=== PATIENT | female | born 1940 | race Caucasian/White ===

== ENCOUNTER 2017-11-26 15:43 | Emergency (ER) | payer OTHER ==
--- NOTE | 2017-11-26 16:56 | RAD REPORT ---
EXAM DESCRIPTION: CT - Head Brain Wo Cont - 11/26/2017 4:46 pm CLINICAL HISTORY: Pain;Trauma COMPARISON: Head Brain Wo Cont dated 11/02/2016; HEAD BRAIN W O CONTRAST dated 07/05/2014 TECHNIQUE: All CT scans are performed using dose optimization technique as appropriate and may inclu de automated exposure control or mA/KV adjustment according to patient size. FINDINGS: No intracranial hemorrhage, hydrocephalus or extra-axial fluid collection.No areas of brai n edema or evidence of midline shift. The paranasal sinuses and mastoids are clear. The calvarium is intact. IMPRESSION: No acute intracranial abnormality.
--- NOTE | 2017-11-26 17:38 | EDPHYS ---
Physician Documentation [facility] Name: Radhika Paz Age: 77 yrs Sex: Female : 1940 Arrival Date: 11/26/2017 Time: 15:46 Bed 6 Private MD: Ortiz Woodard C ED Physician David Lopez HPI: 11/26 16:16 This 77 yrs old Female presents to ER via Ambulatory with complaints of Fall kb Injury. 16:16 Details of fall: The patient fell from an upright position, while standing. Onset: The kb symptoms/episode began/occurred this morning. Associated injuries: The patient sustained injury to the head, pain, anterior aspect of right shoulder, painful injury. Severity of symptoms: At their worst the symptoms were mild, moderate, in the emergency department the symptoms are unchanged. The patient has not experienced similar symptoms in the past. The patient has not recently seen a physician. Pt states she was trying to get into her daughters car and her foot got caught when she was lifting it into the car making her fall. States she hit her head on the concrete. Denies LOC. States her head is a little sore and she just wanted to make sure her brain was ok. Also reports right shoulder pain that has been intermittent and wants to get that checked as well. . Historical: - Allergies: 15:58 No Known Allergies; sv - Home Meds: 15:58 Aspirin Oral [Active]; sv - PSHx: 15:58 Hysterectomy; back surgery; Tonsillectomy; pacemaker; sv - Immunization history:: Adult Immunizations up to date. - Social history:: Smoking status: Patient/guardian denies using tobacco. - Ebola Screening: : No symptoms or risks identified at this time. ROS: 16:13 Constitutional: Negative for fever, chills, and weight loss, Cardiovascular: Negative kb for chest pain, palpitations, and edema, Respiratory: Negative for shortness of breath, cough, wheezing, and pleuritic chest pain, Abdomen/GI: Negative for abdominal pain, nausea, vomiting, diarrhea, and constipation, Back: Negative for injury and pain, : Negative for injury, bleeding, discharge, and swelling, Skin: Negative for injury, rash, and discoloration, Neuro: Negative for headache, weakness, numbness, tingling, and seizure. 16:13 MS/extremity: Positive for pain, of the anterior aspect of right shoulder. Exam: 16:13 Constitutional: This is a well developed, well nourished patient who is awake, alert, kb and in no acute distress. Head/Face: Normocephalic, atraumatic. ENT: Nares patent. No nasal discharge, no septal abnormalities noted. Tympanic membranes are normal and external auditory canals are clear. Oropharynx with no redness, swelling, or masses, exudates, or evidence of obstruction, uvula midline. Mucous membranes moist. Neck: Trachea midline, no thyromegaly or masses palpated, and no cervical lymphadenopathy. Supple, full range of motion without nuchal rigidity, or vertebral point tenderness. No Meningismus. Chest/axilla: Normal chest wall appearance and motion. Nontender with no deformity. No lesions are appreciated. Cardiovascular: Regular rate and rhythm with a normal S1 and S2. No gallops, murmurs, or rubs. Normal PMI, no JVD. No pulse deficits. Respiratory: Lungs have equal breath sounds bilaterally, clear to auscultation and percussion. No rales, rhonchi or wheezes noted. No increased work of breathing, no retractions or nasal flaring. Abdomen/GI: Soft, non-tender, with normal bowel sounds. No distension or tympany. No guarding or rebound. No evidence of tenderness throughout. Skin: Warm, dry with normal turgor. Normal color with no rashes, no lesions, and no evidence of cellulitis. MS/ Extremity: Pulses equal, no cyanosis. Neurovascular intact. Full, normal range of motion. Neuro: Awake and alert, GCS 15, oriented to person, place, time, and situation. Cranial nerves II-XII grossly intact. Motor strength 5/5 in all extremities. Sensory grossly intact. Cerebellar exam normal. Normal gait. Vital Signs: 15:58 BP 140 / 50; Pulse 62; Resp 18; Temp 96.7; Pulse Ox 96% ; Weight 81.65 kg; Height 5 ft. sv 8 in. (172.72 cm); Pain 2/10; 15:58 Body Mass Index 27.37 (81.65 kg, 172.72 cm) sv [place] Coma Score: 16:30 Eye Response: spontaneous(4). Verbal Response: oriented(5). Motor Response: obeys ss commands(6). Total: 15. Trauma Score (Adult): 16:30 Eye Response: spontaneous(1); Verbal Response: oriented(1); Motor Response: obeys ss commands(2); Systolic BP: > 89 mm Hg(4); Respiratory Rate: 10 to 29 per min(4); [place] Score: 15; Trauma Score: 12 MDM: 16:03 Patient medically screened. kb 16:13 Data reviewed: vital signs, nurses notes. Data interpreted: Pulse oximetry: on room air kb is 96 %. Interpretation: normal. 17:37 Counseling: I had a detailed discussion with the patient and/or guardian regarding: the kb historical points, exam findings, and any diagnostic results supporting the discharge/admit diagnosis, radiology results, the need for outpatient follow up, a family practitioner, to return to the emergency department if symptoms worsen or persist or if there are any questions or concerns that arise at home. 11/26 16:07 Order name: Shoulder Right (2 View) XRAY kb 11/26 16:07 Order name: CT Head Brain wo Cont; Complete Time: 17:03 kb Administered Medications: No medications were administered Disposition: 11/27 08:27 Co-signature as Attending Physician, David Lopez MD I agree with the assessment and wa plan of care. Disposition: 11/26/17 17:38 Discharged to Home. Impression: Fall on same level from slipping, tripping and stumbling, Pain in right shoulder, Superficial injury of head. - Condition is Stable. - Discharge Instructions: Shoulder Pain, [id number], Head Injury, Adult, [id number]. - Medication Reconciliation Form, Thank You Letter, Antibiotic Education, Prescription Opioid Use form. - Follow up: Emergency Department; When: As needed; Reason: Worsening of condition. Follow up: Private Physician; When: 2 - 3 days; Reason: Recheck today's complaints, Continuance of care, Re-evaluation by your physician. Signatures: Dispatcher [employer] Carey Schaefer FNP-C FNP-Ckb Verde, Stephanie, RN RN sv Appiah, William, MD MD wa Corrections: (The following items were deleted from the chart) 11/26 17:59 17:38 11/26/2017 17:38 Discharged to Home. Impression: Fall on same level from sv slipping, tripping and stumbling; Pain in right shoulder; Superficial injury of head. Condition is Stable. Forms are Medication Reconciliation Form, Thank You Letter, Antibiotic Education, Prescription Opioid Use. Follow up: Emergency Department; When: As needed; Reason: Worsening of condition. Follow up: Private Physician; When: 2 - 3 days; Reason: Recheck today's complaints, Continuance of care, Re-evaluation by your physician. kb
--- NOTE | 2017-11-26 17:38 | ER ---
Nurse's Notes [facility] Name: Radhika Paz Age: 77 yrs Sex: Female : 1940 Arrival Date: 11/26/2017 Time: 15:46 Bed 6 Private MD: Ortiz Woodard C Diagnosis: Fall on same level from slipping, tripping and stumbling;Pain in right shoulder;Superficial injury of head Presentation: 11/26 15:55 Presenting complaint: Patient states: fall today trying to get in a car and got feet sv stuck. Pt reports hitting the back of her head, denies LOC. Care prior to arrival: None. 15:55 Acuity: AMADOU 3 sv 15:55 Method Of Arrival: Ambulatory sv 16:30 Transition of care: patient was not received from another setting of care. Onset of ss symptoms was November 26, 2017. Risk Assessment: Do you want to hurt yourself or someone else? Patient reports no desire to harm self or others. Initial Sepsis Screen: Does the patient meet any 2 criteria? No. Patient's initial sepsis screen is negative. Does the patient have a suspected source of infection? No. Patient's initial sepsis screen is negative. Historical: - Allergies: 15:58 No Known Allergies; sv - Home Meds: 15:58 Aspirin Oral [Active]; sv - PSHx: 15:58 Hysterectomy; back surgery; Tonsillectomy; pacemaker; sv - Immunization history:: Adult Immunizations up to date. - Social history:: Smoking status: Patient/guardian denies using tobacco. - Ebola Screening: : No symptoms or risks identified at this time. Screenin:30 Abuse screen: Denies threats or abuse. Denies injuries from another. Nutritional ss screening: No deficits noted. Tuberculosis screening: Never had TB. Fall Risk None identified. Assessment: 16:30 General: Appears in no apparent distress. comfortable, Behavior is calm, cooperative, ss Denies fever, feeling ill, fatigue, chills. Pain: Complains of pain in right occipital area and anterior aspect of right shoulder Pain does not radiate. Quality of pain is described as Patient reports that pain to R shoulder began 3 months ago and pain to back of head is currently 0/10. Pt reports hematoma was present earlier when injury first occurred, but no swelling or injury noted to affected area. Neuro: Level of Consciousness is awake, alert, obeys commands, Oriented to person, place, time, situation. Cardiovascular: Capillary refill < 3 seconds is brisk in bilateral fingers Pulses are palpable in right radial artery, right posterior tibial artery, left radial artery and left posterior tibial artery. Respiratory: Airway is patent Respiratory effort is even, unlabored, Respiratory pattern is regular, symmetrical. GI: Patient currently denies abdominal pain, diarrhea, nausea, vomiting. : No signs and/or symptoms were reported regarding the genitourinary system. EENT: Nares are clear Throat is clear. Derm: Skin is intact, is healthy with good turgor, Skin is dry, Skin temperature is warm. Musculoskeletal: Circulation, motion, and sensation intact. Range of motion: intact in all extremities, Swelling absent. Vital Signs: 15:58 BP 140 / 50; Pulse 62; Resp 18; Temp 96.7; Pulse Ox 96% ; Weight 81.65 kg; Height 5 ft. sv 8 in. (172.72 cm); Pain 2/10; 15:58 Body Mass Index 27.37 (81.65 kg, 172.72 cm) sv [place] Coma Score: 16:30 Eye Response: spontaneous(4). Verbal Response: oriented(5). Motor Response: obeys ss commands(6). Total: 15. Trauma Score (Adult): 16:30 Eye Response: spontaneous(1); Verbal Response: oriented(1); Motor Response: obeys ss commands(2); Systolic BP: > 89 mm Hg(4); Respiratory Rate: 10 to 29 per min(4); [place] Score: 15; Trauma Score: 12 ED Course: 15:46 Patient arrived in ED. sb2 15:46 Ortiz Woodard MD is Private Physician. sb2 15:56 Triage completed. sv 15:58 Arm band placed on left wrist. sv 16:03 Carey Arita F[facility]-C [facility]. kb 16:03 David Lopez MD is Attending Physician. kb 16:30 Patient has correct armband on for positive identification. Bed in low position. Call ss light in reach. 16:[address] via stretcher. nj 16:43 X-ray completed. Portable x-ray completed in exam room. Patient tolerated procedure mh1 well. 16:44 Shoulder Right (2 View) XRAY In Process Unspecified. EDMS 16:46 CT Head Brain wo Cont In Process Unspecified. EDMS 17:01 Ember Goddard, RN is Primary Nurse. 17:59 No provider procedures requiring assistance completed. Patient did not have IV access ss during this emergency room visit. Administered Medications: No medications were administered Outcome: 17:38 Discharge ordered by MD. kb 17:59 Patient left the ED. sv 17:59 Discharged to home ambulatory. ss 17:59 Condition: good 17:59 Discharge instructions given to patient, Instructed on discharge instructions, follow up and referral plans. medication usage, Demonstrated understanding of instructions, follow-up care. Signatures: Dispatcher [employer] EDTX Carey Arita, PRODUCT DEVELOPMENT-C PRODUCT DEVELOPMENT-Aminata Alcaraz RN RN Ariela Alvarado 1 Ember Goddard, RN RN Joni Mcmahan Sheri sb2
--- NOTE | 2017-11-26 18:01 | RAD REPORT ---
EXAM DESCRIPTION: RAD - Shoulder Right 2 View - 11/26/2017 5:01 pm CLINICAL HISTORY: PAIN COMPARISON: No comparisons FINDINGS: Prominent AC joint degenerative changes are noted. No acute fracture or dislocation is see n.
[2017-11-26 18:04] VITALS: BP 140/50; TEMP 96.7; O2SAT 96
== END 2017-11-26 17:59 | disposition home or self-care (01) ==
LOC: ER 15:43
DX: S00.90XA Unspecified superficial injury of unspecified part of head, initial encounter (principal); M25.511 Pain in right shoulder; V48.4XXA Person boarding or alighting a car injured in noncollision transport accident, initial encounter; Y93.9 Activity, unspecified; Y92.9 Unspecified place or not applicable; Z79.82 Long term (current) use of aspirin
CPT/HCPCS: 70450; 99284

== ENCOUNTER 2018-07-01 14:02 | Emergency (ER) | payer OTHER ==
--- OUTSIDE RECORDS SUMMARY | 2018-07-01 14:05 | XMS REPORT | Continuity of Care Document ---
:1940 Author Organization Interface Problems Problem Status Onset Date Classification Date Comments Source Reported Medications Medication Details Route Status Patient Ordering Order Source Instructions Provider Date Allergies, Adverse Reactions, Alerts Substance Category Reaction Severity Reaction Status Date Comments Source type Reported Immunizations Immunization Date Given Site Status Last Updated Comments Source Results Order Results Value Reference Date Interpretation Comments Source Name Range Vital Signs Vital Sign Value Date Comments Source Encounters Location Location Encounter Encounter Reason Attending ADM DC Status Source Details Type Number For Provider Date Date Visit Outpatient [id number] [facility] 06/10 [facility] [place] Outpatient [id number] [facility] 07/08 [facility] [place] Procedures Procedure Code Date Perfomer Comments Source
--- NOTE | 2018-07-01 16:19 | RAD REPORT ---
EXAM DESCRIPTION: RAD - Hip Left 2 View - 07/01/2018 4:13 pm CLINICAL HISTORY: Trip and fall, left hip pain COMPARISON: October 2014 FINDINGS: AP and frogleg views of the left hip were obtained. There is no fracture or dislocation. N o acute or destructive bony process seen. Minimal degenerative change along the superior acetabular rim. No AVN or focal femoral head finding. No soft tissue abnormality. IMPRESSION: Negative left hip examination for acute or significant findings. Minimal acetabulum degenerative change similar to 2015.
--- NOTE | 2018-07-01 17:21 | RAD REPORT ---
EXAM DESCRIPTION: CT - Hip Left Wo Con - 07/01/2018 5:04 pm CLINICAL HISTORY: Left pain, retracting skin mass COMPARISON: Left hip plain films same date TECHNIQUE: Axial 2 millimeter thick images of the left hip joint performed. Sagittal and coronal rec onstruction images generated and reviewed. The CT scan was performed using dose optimization techniques as appropriate to a performed exam incl uding one or more of the following: Automated exposure control, adjustment of the mA and/or kV accord ing to patient size (this includes techniques or standardized protocols for targeted exams where dose is matched to indication/reason for exam) and use of iterative reconstruction technique. FINDINGS: No fracture or acute bone finding. No AVN or focal femoral head abnormality. Degenerative spurring and subcortical degenerative cystic changes are seen along the superior acetabular rim. No p eriarticular mass or hematoma. The BB marker was placed on the lateral skin surface where there is dimpling or buckling of the skin. On CT imaging there is a 3- 4 centimeter area of soft tissue density roughly triangular in shape. Th e broad base is along the iliotibial band lateral to the greater trochanter with a thin band extendin g to the skin surface. The tensor fascia latae muscle and gluteus merly muscles show no suspicious findings. Deeper periarticular musculature also without acute finding. The soft tissue opacification does not extend deep to the iliotibial band. No air or foreign body in the soft tissues. IMPRESSION: Approximately 3-4 centimeter area of soft tissue opacification roughly triangular in sha pe. Broad-base abuts the iliotibial band with a thin strand radiating to the skin surface where there is dimpling. Finding is most likely posttraumatic fibrosis. Soft tissue density does not extend deep to the iliotibial band and no muscle, bone or hip joint acut e finding seen.
--- NOTE | 2018-07-01 17:30 | ER ---
Nurse's Notes [facility] Name: Radhika Paz Age: 78 yrs Sex: Female : 1940 Arrival Date: 07/01/2018 Time: 14:05 Bed 30 Private MD: Ortiz Woodard C Diagnosis: Post Traumatic Fibrosis left hip Presentation: 07/01 14:16 Presenting complaint: Patient states: Every morning I wake up feeling dizzy and I know sg im going to fall throughout the day at least once or twice, pt reports having fallen several times over the past week, has fallen this morning and reports pain in the right buttocks and pain the right hip, pt states is able to walk but the pain is worse with activity. Transition of care: patient was not received from another setting of care. Onset of symptoms was July 01, 2018. Risk Assessment: Do you want to hurt yourself or someone else? Patient reports no desire to harm self or others. Initial Sepsis Screen: Does the patient meet any 2 criteria? No. Patient's initial sepsis screen is negative. Does the patient have a suspected source of infection? No. Patient's initial sepsis screen is negative. Care prior to arrival: None. 14:16 Method Of Arrival: Ambulatory sg 14:16 Acuity: AMADOU 3 sg Historical: - Allergies: 14:10 No Known Allergies; sg - Home Meds: 14:10 Aspirin Oral [Active]; sg - PMHx: 14:18 Hypertension; sg - PSHx: 14:10 Hysterectomy; back surgery; Tonsillectomy; pacemaker; sg - Immunization history:: Adult Immunizations up to date. - Social history:: Smoking status: Patient/guardian denies using tobacco. - Ebola Screening: : Patient negative for fever greater than or equal to 101.5 degrees Fahrenheit, and additional compatible Ebola Virus Disease symptoms Patient denies exposure to infectious person Patient denies travel to an Ebola-affected area in the 21 days before illness onset No symptoms or risks identified at this time. Screenin:04 Abuse screen: Denies threats or abuse. Denies injuries from another. Nutritional mg2 screening: No deficits noted. Tuberculosis screening: No symptoms or risk factors identified. Fall Risk Fall in past 12 months (25 points). Secondary diagnosis (15 points) dizziness. Assessment: 15:42 General: Appears in no apparent distress. comfortable, Behavior is calm, cooperative. mg2 Pain: Complains of pain in left hip Pain does not radiate. Pain currently is 2 out of 10 on a pain scale. Quality of pain is described as aching, Pain began gradually, 2 weeks ago Is intermittent, Alleviated by medications, rest, Aggravated by increased activity, repositioning. Neuro: Level of Consciousness is awake, alert, obeys commands, Oriented to person, place, time, situation. Neuro: Reports dizziness. Cardiovascular: Capillary refill < 3 seconds Patient's skin is warm and dry. Respiratory: Airway is patent Respiratory effort is even, unlabored. GI: No signs and/or symptoms were reported involving the gastrointestinal system. : No signs and/or symptoms were reported regarding the genitourinary system. EENT: No signs and/or symptoms were reported regarding the EENT system. Derm: Skin is intact, is healthy with good turgor, Skin is pink, warm \T\ dry. normal. Musculoskeletal: Circulation, motion, and sensation intact. Capillary refill < 3 seconds. Injury Description: indention on the left upper thigh. 17:30 Reassessment: Patient denies pain at this time. mg2 Vital Signs: 14:17 BP 152 / 49; Pulse 78; Resp 18; Temp 98.4; Pulse Ox 98% on R/A; Pain 6/10; sg 15:42 BP 140 / 58; Pulse 65; Resp 18; Pulse Ox 98% on R/A; Pain 2/10; mg2 16:47 Pulse 65; Resp 18; Pulse Ox 99% on R/A; mg2 17:30 BP 135 / 55; Pulse 70; Resp 18; Pulse Ox 100% on R/A; Pain 0/10; mg2 ED Course: 14:05 Patient arrived in ED. mr 14:05 Ortiz Woodard MD is Private Physician. mr 14:09 Arm band placed on. sg 14:17 Triage completed. sg 15:03 Fredrick Manrique RN is Primary Nurse. mg2 15:07 Paras Brand PA is PHCP. jr8 15:07 Dejuan Nguyen MD is Attending Physician. jr8 15:45 Patient has correct armband on for positive identification. Pulse ox on. NIBP on. Door mg2 closed. Warm blanket given. 15:45 No provider procedures requiring assistance completed. mg2 16:11 XRAY Hip LEFT 2 view In Process Unspecified. EDMS 16:[address] vm2 17:05 Hip Left Wo Con In Process Unspecified. EDMS 17:29 Ortiz Woodard MD is Referral Physician. jr8 17:38 Patient did not have IV access during this emergency room visit. mg2 Administered Medications: No medications were administered Outcome: 17:29 Discharge ordered by . jr8 17:38 Discharged to home ambulatory, with family. mg2 17:38 Condition: stable 17:38 Discharge instructions given to patient, family, Instructed on discharge instructions, follow up and referral plans. medication usage, Demonstrated understanding of instructions, follow-up care, medications, Prescriptions given X 1. 17:40 Patient left the ED. mg2 Signatures: Dispatcher [employer] EDMS Moisés Reyes, RN RN Meena Chandler mr LiliyaParas koenig PA PA jr8 Olivia Hendrickson 2 Fredrick Manrique RN RN mg2
--- NOTE | 2018-07-01 17:30 | EDPHYS ---
Physician Documentation [facility] Name: Radhika Paz Age: 78 yrs Sex: Female : 1940 Arrival Date: 07/01/2018 Time: 14:05 Bed 30 Private MD: Ortiz Woodard C ED Physician Dejuan Nguyen HPI: 07/01 15:55 This 78 yrs old Female presents to ER via Ambulatory with complaints of Hip jr8 Pain. 15:55 The patient or guardian reports pain. that occurred at home, sustained from a fall, jr8 There is no obvious deformity, The patient is able to self ambulate. The patient is able to bear their full body weight. There is no radiation of the patient's discomfort. The complaints affect the left hip. Onset: The symptoms/episode began/occurred acutely, 4 week(s) ago. Modifying factors: The symptoms are alleviated by nothing, the symptoms are aggravated by external rotation, weight bearing. Associated signs and symptoms: Loss of consciousness: the patient experienced no loss of consciousness. Severity of symptoms: At their worst the symptoms were mild, in the emergency department the symptoms are unchanged. The patient has not experienced similar symptoms in the past. The patient has not recently seen a physician. Patient stated that she fell 4 weeks ago. Stated that she had bruising and pain to left hip. Denied any other trauma at that time. Came in now because she feels the hip has somewhat improved but still continues to have pain . Historical: - Allergies: 14:10 No Known Allergies; sg - Home Meds: 14:10 Aspirin Oral [Active]; sg - PMHx: 14:18 Hypertension; sg - PSHx: 14:10 Hysterectomy; back surgery; Tonsillectomy; pacemaker; sg - Immunization history:: Adult Immunizations up to date. - Social history:: Smoking status: Patient/guardian denies using tobacco. - Ebola Screening: : Patient negative for fever greater than or equal to 101.5 degrees Fahrenheit, and additional compatible Ebola Virus Disease symptoms Patient denies exposure to infectious person Patient denies travel to an Ebola-affected area in the 21 days before illness onset No symptoms or risks identified at this time. ROS: 15:55 Eyes: Negative for injury, pain, redness, and discharge, ENT: Negative for injury, jr8 pain, and discharge, Neck: Negative for injury, pain, and swelling, Cardiovascular: Negative for chest pain, palpitations, and edema, Respiratory: Negative for shortness of breath, cough, wheezing, and pleuritic chest pain, Abdomen/GI: Negative for abdominal pain, nausea, vomiting, diarrhea, and constipation, Back: Negative for injury and pain, Skin: Negative for injury, rash, and discoloration, Neuro: Negative for headache, weakness, numbness, tingling, and seizure. 15:55 MS/extremity: Positive for pain, tenderness, of the left hip. Exam: 15:55 Head/Face: Normocephalic, atraumatic. Eyes: Pupils equal round and reactive to light, jr8 extra-ocular motions intact. Lids and lashes normal. Conjunctiva and sclera are non-icteric and not injected. Cornea within normal limits. Periorbital areas with no swelling, redness, or edema. ENT: Nares patent. No nasal discharge, no septal abnormalities noted. Tympanic membranes are normal and external auditory canals are clear. Oropharynx with no redness, swelling, or masses, exudates, or evidence of obstruction, uvula midline. Mucous membranes moist. Neck: Trachea midline, no thyromegaly or masses palpated, and no cervical lymphadenopathy. Supple, full range of motion without nuchal rigidity, or vertebral point tenderness. No Meningismus. Chest/axilla: Normal chest wall appearance and motion. Nontender with no deformity. No lesions are appreciated. Cardiovascular: Regular rate and rhythm with a normal S1 and S2. No gallops, murmurs, or rubs. Normal PMI, no JVD. No pulse deficits. Respiratory: Lungs have equal breath sounds bilaterally, clear to auscultation and percussion. No rales, rhonchi or wheezes noted. No increased work of breathing, no retractions or nasal flaring. Abdomen/GI: Soft, non-tender, with normal bowel sounds. No distension or tympany. No guarding or rebound. No evidence of tenderness throughout. Back: No spinal tenderness. No costovertebral tenderness. Full range of motion. Skin: Warm, dry with normal turgor. Normal color with no rashes, no lesions, and no evidence of cellulitis. Neuro: Awake and alert, GCS 15, oriented to person, place, time, and situation. Cranial nerves II-XII grossly intact. Motor strength 5/5 in all extremities. Sensory grossly intact. Cerebellar exam normal. Normal gait. 15:55 Musculoskeletal/extremity: Extremities: grossly normal except: noted in the left hip: Patient has pain and tenderness to where greater trochanter region of left hip. No obvious deformity. No bruising, ROM: intact in all extremities, full active range of motion, full passive range of motion, Circulation is intact in all extremities. Sensation intact. Vital Signs: 14:17 BP 152 / 49; Pulse 78; Resp 18; Temp 98.4; Pulse Ox 98% on R/A; Pain 6/10; sg 15:42 BP 140 / 58; Pulse 65; Resp 18; Pulse Ox 98% on R/A; Pain 2/10; mg2 16:47 Pulse 65; Resp 18; Pulse Ox 99% on R/A; mg2 17:30 BP 135 / 55; Pulse 70; Resp 18; Pulse Ox 100% on R/A; Pain 0/10; mg2 MDM: 15:08 Patient medically screened. jr8 17:29 Data reviewed: vital signs, nurses notes, radiologic studies, CT scan, plain films, and jr8 as a result, I will discharge patient. Data interpreted: Pulse oximetry: on room air is 99 %. Interpretation: normal. Counseling: I had a detailed discussion with the patient and/or guardian regarding: the historical points, exam findings, and any diagnostic results supporting the discharge/admit diagnosis, radiology results, the need for outpatient follow up, a family practitioner, a orthopedic surgeon, to return to the emergency department if symptoms worsen or persist or if there are any questions or concerns that arise at home. 07/01 15:41 Order name: XRAY Hip LEFT 2 view; Complete Time: 16:23 jr8 07/01 16:33 Order name: Hip Left Wo Con; Complete Time: 17:28 EDMS Administered Medications: No medications were administered Disposition: 18:00 Co-signature as Attending Physician, Dejuan Nguyen MD. rn Disposition: 07/01/18 17:29 Discharged to Home. Impression: Post Traumatic Fibrosis left hip . - Condition is Stable. - Discharge Instructions: Adhesions. - Prescriptions for Robaxin 500 mg Oral Tablet - take 2 tablet by ORAL route every 6 hours As needed; 40 tablet. - Medication Reconciliation Form, Thank You Letter, Antibiotic Education, Prescription Opioid Use form. - Follow up: Ortiz Woodard MD; When: 5 - 6 days; Reason: Recheck today's complaints, Continuance of care, Re-evaluation by your physician. - Problem is new. - Symptoms have improved. Signatures: Dispatcher [employer] EDMoisés Paulino RN RN sg Dejuan Nguyen MD MD rn Roszak, Josh, ADRIANO PA jr8 Fredrick Manrique RN RN mg2 Corrections: (The following items were deleted from the chart) 17:40 17:29 07/01/2018 17:29 Discharged to Home. Impression: Post Traumatic Fibrosis left hip mg2 . Condition is Stable. Forms are Medication Reconciliation Form, Thank You Letter, Antibiotic Education, Prescription Opioid Use. Follow up: Ortiz Woodard; When: 5 - 6 days; Reason: Recheck today's complaints, Continuance of care, Re-evaluation by your physician. Problem is new. Symptoms have improved. jr8
[2018-07-01 19:23] VITALS: TEMP 98.4
[2018-07-01 19:27] VITALS: BP 135/55; O2SAT 100
== END 2018-07-01 17:40 | disposition home or self-care (01) ==
LOC: ER 14:02
DX: L90.5 Scar conditions and fibrosis of skin (principal); W19.XXXA Unspecified fall, initial encounter; Y93.9 Activity, unspecified; Y92.009 Unspecified place in unspecified non-institutional (private) residence as the place of occurrence of the external cause; Z79.82 Long term (current) use of aspirin; Z95.0 Presence of cardiac pacemaker; I10 Essential (primary) hypertension
CPT/HCPCS: 73700; 99284

== ENCOUNTER 2018-10-29 20:11 | Emergency (ER) | payer OTHER ==
--- OUTSIDE RECORDS SUMMARY | 2018-10-29 20:13 | XMS REPORT | Continuity of Care Document ---
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/22/2018 [facility] HTN - Hypertension Active Problem 10/22/2018 [facility] Hypothyroidism Active Problem 10/22/2018 [facility] Lumbar spondylosis Active Problem 10/22/2018 [facility] Frequent falls Active Problem 10/22/2018 [facility] Medications Medication Details Route Status Patient Ordering Order Source Instructions Provider Date gabapentin 100 100 mg=1 Active 10/20/19 [facility] Oral cap, PO, 19 Neuro Capsule Bedtime, # 90 cap, 1 Refill(s), Pharmacy: [id number] Allergies, Adverse Reactions, Alerts Substance Category Reaction Severity Reaction Status Date Comments Source type Reported No Known Assertion Drug [facility] Medication allergy Neuro Allergies Immunizations No Data Provided for This Section Results No Data Provided for This Section Pathology Reports No Data Provided for This Section Diagnostic Reports No Data Provided for This Section Consultation Notes No Data Provided for This Section Discharge Summaries No Data Provided for This Section History and Physicals No Data Provided for This Section Vital Signs Vital Sign Value Date Comments Source BMI Calculated 25.75 10/19/2018 [facility] Weight 76.818 10/19/2018 [facility] Height 172.72 cm 10/19/2018 [facility] Respitory Rate 16 10/19/2018 [facility] Systolic (mm Hg) 125 10/19/2018 [facility] Diastolic (mm Hg) 58 10/19/2018 [facility] Heart Rate 62 10/19/2018 [facility] Encounters Location Location Encounter Encounter Reason Attending ADM DC Status Source Details Type Number For Provider Date Date Visit Outpatient [id number] SHEREE 06/10 Active [facility] Outpatient [id number] SHEREE 07/08 [facility] Outpatient [id number] She[place] 07/12 Active [facility] Out[facility] [id number] Sheree 10/19 [facility] [id number] [place] 10/19 10/20 [facility] [place] Outpatient [id number] [place] 04/21 [facility] Procedures No Data Provided for This Section Assessment and Plan No Data Provided for This Section Plan of Care No Data Provided for This Section Social History Social History Date Source Social History TypeResponse 10/19/2018 [facility] Smoking Status Never smoker; Exposure to Tobacco Smoke None; Cigarette Smoking Last 365 Days No; Reg Smoking Cessation Counseling No entered on: 10/19/18 Family History No Data Provided for This Section Advance Directives No Data Provided for This Section Functional Status No Data Provided for This Section
--- OUTSIDE RECORDS SUMMARY | 2018-10-29 20:14 | XMS REPORT | Summary of Care ---
:1940 Author Organization [facility] Neu[facility] [place] Address [address] [place] [address]- Encounter [facility] Margie(FIN) [id number] Date(s): 10/19/18 - 10/19/18 [facility] [address] [place] [address]- [phone] Discharge Disposition: Home or Self Care Attending Physician: Bucky Black MD Referring Physician: Bucky Black MD Vital Signs Most recent to oldest [Reference Range]: 1 Height 172.72 cm (10/19/18 9:19 AM) Blood Pressure [90-140/60-90 mmHg] 125/58 mmHg (10/19/18 9:19 AM) Respiratory Rate [14-20 BRMIN] 16 BRMIN (10/19/18 9:19 AM) Peripheral Pulse Rate [60-100 bpm] 62 bpm (10/19/18 9:19 AM) Weight 76.818 kg (10/19/18 9:19 AM) Body Mass Index 25.75 m2 (10/19/18 9:19 AM) Problem List Condition Effective Dates Status Health Status Informant Pacemaker(Confirmed) Active Drop attack(Confirmed) Active HTN - Hypertension(Confirmed) Active Hypothyroidism(Confirmed) Active Lumbar spondylosis(Confirmed) Active Frequent falls(Confirmed) Active Allergies, Adverse Reactions, Alerts No Known Medication Allergies Medications gabapentin 100 mg oral capsule 100 mg=1 cap, PO, Bedtime, # 90 cap, 1 Refill(s), Pharmacy: [id number] Start Date: 10/19/18 Stop Date: 04/17/19 Status: Ordered Results No data available for this section Immunizations No data available for this section Procedures No data available for this section Social History Social History Type Response Smoking Status Never smoker; Exposure to Tobacco Smoke None; Cigarette Smoking Last 365 Days No; Reg Smoking Cessation Counseling No entered on: 10/19/18 Assessment and Plan No data available for this section
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
[2018-10-29 22:26] VITALS: BP 107/52; TEMP 97.9; O2SAT 99
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
== END 2018-10-29 21:38 | disposition home or self-care (01) ==
LOC: ER 20:11
DX: S06.0X0A Concussion without loss of consciousness, initial encounter (principal); V49.49XA Driver injured in collision with other motor vehicles in traffic accident, initial encounter; I10 Essential (primary) hypertension; Z95.0 Presence of cardiac pacemaker
CPT/HCPCS: 70450; 99284

== ENCOUNTER 2019-04-05 17:33 | Emergency (ER) | payer OTHER ==
[2019-04-05] MEDS ORDERED: NA CHLORIDE 0.9% 500 ML ONE (18:15)
[2019-04-05] MEDS ORDERED: PROMETHAZINE INJ 25 MG/ML AMP ONE (18:15)
[2019-04-05 18:30] LABS: Absolute Lymphocytes (CBC) 1.1 K/uL (0.7-4.9); Basophils % 0.3 % (0-1.3); Hematocrit 28.5 % (36.0-45.0); Lymphocytes % 12.8 % (15.3-44.8); MPV 7.2 fL (7.6-11.3); RBC Red Blood Cell Count 3.05 M/uL (3.86-4.86)
[2019-04-05 18:47] LABS: ALT/SGPT 49 U/L (12-78); AST/SGOT 25 U/L (15-37); Albumin 2.9 g/dL (3.4-5.0); Alkaline Phosphatase 85 U/L (45-117); BUN Blood Urea Nitrogen 15 mg/dL (7-18); Bicarbonate 23 mmol/L (21-32); Bilirubin Direct 0.3 mg/dL (0-0.2); Glucose Level 92 mg/dL (74-106); Lipase 76 U/L (73-393); Potassium 3.9 mmol/L (3.5-5.1); Protein, Total 6.5 g/dL (6.4-8.2); Sodium Level 134 mmol/L (136-145)
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
[2019-04-05 21:17] VITALS: TEMP 98.2
[2019-04-05 21:19] VITALS: O2SAT 100
[2019-04-05 21:20] VITALS: BP 165/58
[2019-04-05 21:32] LABS: Blood Morphology Comment NOT SEEN (NOT SEEN); Platelet Estimate ADEQ; Platelets, Giant FEW
== END 2019-04-05 21:06 | disposition home or self-care (01) ==
LOC: ER 17:33
DX: R11.2 Nausea with vomiting, unspecified (principal); I10 Essential (primary) hypertension; Z95.0 Presence of cardiac pacemaker
CPT/HCPCS: 96361; 85025; 80048; 36415; 80076; 83690; 96374; 99284; J2550; J7040

== ENCOUNTER 2020-08-01 17:39 | Emergency (ER) | payer OTHER ==
[2020-08-01 20:39] LABS: Absolute Lymphocytes (CBC) 2.3 K/uL (0.7-4.9); Basophils % 0.9 % (0-1.3); Hematocrit 40.8 % (36.0-45.0); Lymphocytes % 34.2 % (15.3-44.8); MPV 7.7 fL (7.6-11.3); RBC Red Blood Cell Count 4.48 M/uL (3.86-4.86)
[2020-08-01] MEDS ORDERED: NA CHLORIDE 0.9% 500 ML ONE (20:42)
[2020-08-01 21:12] LABS: Urine Blood Negative (Negative); Urine Glucose Negative (Negative); Urine Protein Negative (Negative); Urine pH 5.5 (5.0-7.0)
[2020-08-01 21:41] LABS: Albumin 3.7 g/dL (3.4-5.0); Bilirubin Direct 0.1 mg/dL (0-0.2); Bilirubin Total 0.4 mg/dL (0.2-1.0); Potassium 4.8 mmol/L (3.5-5.1); Protein, Total 7.1 g/dL (6.4-8.2)
[2020-08-01 21:54] LABS: Urine Bacteria <20 /HPF (<20); Urine RBC <5 /HPF (NONE SEEN)
[2020-08-01 21:55] LABS: Urine Amorphous Sediment TRACE /HPF (NONE SEEN)
--- NOTE | 2020-08-01 23:49 | EDPHYS ---
Physician Documentation [facility] Name: Radhika Paz Age: 80 yrs Sex: Female : 1940 Arrival Date: 08/01/2020 Time: 17:47 Bed 5 Private MD: ED Physician Damon Pollard HPI: 08/01 20:02 This 80 yrs old Female presents to ER via Ambulatory with complaints of Side cp Pain. 20:02 The patient presents with abdominal pain right lower quadrant. Onset: The cp symptoms/episode began/occurred this morning. The symptoms do not radiate. Associated signs and symptoms: Pertinent positives: diarrhea, Pertinent negatives: anorexia, blood in stools, constipation, dysuria, fever, headache, nausea, vomiting. The symptoms are described as waxing/waning. Modifying factors: the symptoms are aggravated by pressure, standing. Historical: - Allergies: 18:04 No Known Drug Allergies; tw2 - Home Meds: 18:04 gabapentin 300 mg Oral cap 1 cap twice a day [Active]; propafenone 325 mg Oral cp12 1 tw2 cap 2 times per day [Active]; metoprolol succinate 50 mg Oral Tb24 1 tab once daily [Active]; levothyroxine 75 mcg tab 1 tab once daily [Active]; atorvastatin 20 mg oral tab 1 tab once daily [Active]; tolterodine 4 mg Oral cp24 1 cap once daily [Active]; aspirin 81 mg Oral TbEC 1 tab once daily [Active]; Fish Oil 183.3 mg-75 mg -91.6 mg-306 mg oral cap [Active]; Centrum 9 mg iron/15 mL oral liqd [Active]; B-12 Plus 5,000-100 mcg sublingual subl [Active]; Glucosamine 500 mg oral tab [Active]; folic acid 400 mcg Oral tab 1 tab once daily [Active]; Co Q-10 oral oral [Active]; - PMHx: 18:04 chronic back pain; Hypertension; Pacemaker; tw2 - PSHx: 18:04 back surgery; tw2 - Immunization history:: Adult Immunizations. - Social history:: Smoking status: . ROS: 20:03 Eyes: Negative for injury, pain, redness, and discharge. cp 20:03 Constitutional: Negative for body aches, chills, fever, poor PO intake. 20:03 ENT: Negative for drainage from ear(s), ear pain, sore throat, difficulty swallowing, difficulty handling secretions. 20:03 Cardiovascular: Negative for chest pain. 20:03 Respiratory: Negative for cough, shortness of breath, wheezing. 20:03 Abdomen/GI: Positive for abdominal pain, diarrhea, Negative for vomiting, constipation, black/tarry stool, rectal bleeding. 20:03 Back: Negative for radiated pain. 20:03 : Negative for urinary symptoms. 20:03 Neuro: Negative for altered mental status, headache, weakness. 20:03 All other systems are negative. Exam: 20:05 Head/Face: Normocephalic, atraumatic. cp 20:05 Constitutional: The patient appears in no acute distress, alert, awake, comfortable, non-toxic, well developed, well nourished. 20:05 Eyes: Periorbital structures: appear normal, Conjunctiva: normal, no exudate, no injection, Sclera: no appreciated abnormality, Lids and lashes: appear normal, bilaterally. 20:05 ENT: External ear(s): are unremarkable, Nose: is normal, Posterior pharynx: Airway: no evidence of obstruction, patent. 20:05 Chest/axilla: Inspection: normal. 20:05 Cardiovascular: Rate: normal, Rhythm: regular. 20:05 Respiratory: the patient does not display signs of respiratory distress, Respirations: normal, no use of accessory muscles, no retractions, labored breathing, is not present. 20:05 Abdomen/GI: Inspection: abdomen appears normal, Bowel sounds: active, all quadrants, Palpation: soft, in all quadrants, mild abdominal tenderness, in the right lower quadrant, rebound tenderness, is not appreciated, voluntary guarding, is elicited in the right lower quadrant, involuntary guarding, is not appreciated. 20:05 Back: pain, is absent. Vital Signs: 17:57 BP 171 / 52; Pulse 69; Resp 18; Temp 97.9(TE); Pulse Ox 99% on R/A; Weight 72.57 kg tw2 (R); Height 5 ft. 8 in. (172.72 cm); Pain 7/10; 21:45 BP 136 / 98; Pulse 63; Resp 18; Pulse Ox 96% on R/A; wh 23:30 BP 161 / 55; Pulse 60; Resp 18; Pulse Ox 94% on R/A; wh 17:57 Body Mass Index 24.33 (72.57 kg, 172.72 cm) tw2 MDM: 19:58 Patient medically screened. cp 21:00 Differential diagnosis: appendicitis, diverticulitis, Pyelonephritis, Ureterolithiasis, cp urinary tract infection, colitis. 23:47 Data reviewed: vital signs, nurses notes, lab test result(s), radiologic studies, CT cp scan. 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 Response to treatment: the patient's symptoms have mildly improved after treatment, and as a result, I will discharge patient. Special discussion: Based on the patient's Hx, exam, and Dx evaluation, there is no indication for emergent surgery or inpatient Tx. It is understood by the patient/guardian that if the Sx's persist or worsen they need to return immediately for re-evaluation. 08/01 20:01 Order name: Basic Metabolic Panel; Complete Time: 23:25 cp 08/01 23:25 Interpretation: Normal except: CL 110; BUN 20; GFR 58. cp 08/01 20:01 Order name: CBC with Diff; Complete Time: 23:25 cp 08/01 20:01 Order name: Hepatic Function; Complete Time: 23:25 cp 08/01 20:01 Order name: Lipase; Complete Time: 23:25 cp 08/01 20:01 Order name: Urine Microscopic Only; Complete Time: 23:25 cp 08/01 23:25 Interpretation: Normal except: UWBC 5-10. cp 08/01 21:12 Order name: Urine Dipstick-Ancillary; Complete Time: 23:25 EDMS 08/01 23:25 Interpretation: Normal except: UESTR 3+. cp 08/01 20:01 Order name: IV Saline Lock; Complete Time: 20:23 cp 08/01 20:01 Order name: CT Abd/Pelvis - PO and IV Contrast cp 08/01 21:12 Order name: Urine Dipstick-Ancillary EDMS 08/01 21:56 Order name: Urine Culture EDMS 08/01 20:01 Order name: Labs collected and sent; Complete Time: 20:24 cp 08/01 20:01 Order name: Urine Dipstick-Ancillary (obtain specimen); Complete Time: 21:12 cp Administered Medications: 20:23 Drug: NS 0.9% 500 ml Route: IV; Rate: 250 ml/hr; Site: right antecubital; 08/02 00:09 Follow up: Response: No adverse reaction; IV Status: Completed infusion 08/01 23:58 Drug: Cipro (ciprofloxacin) 500 mg Route: PO; 08/02 00:09 Follow up: Response: No adverse reaction 08/01 23:58 Drug: metroNIDAZOLE 500 mg Route: PO; 08/02 00:08 Follow up: Response: No adverse reaction 08/01 23:58 Drug: Ativan (LORazepam) 0.5 mg Route: PO; 08/02 00:08 Follow up: Response: No adverse reaction Disposition: 06:35 Co-signature as Attending Physician, Damon Pollard MD. 7 Disposition: 08/01/20 23:48 Discharged to Home. Impression: Diverticulosis of large intestine without perforation or abscess without bleeding, Urinary tract infection, site not specified, Lower abdominal pain, unspecified. - Condition is Stable. - Discharge Instructions: Abdominal Pain, Adult, Diverticulosis, Urinary Tract Infection, Adult. - Prescriptions for Bentyl 20 mg Oral Tablet - take 1 tablet by ORAL route every 6 hours As needed; 30 tablet. Cipro 500 mg Oral Tablet - take 1 tablet by ORAL route every 12 hours for 10 days; 20 tablet. Zofran 4 mg Oral Tablet - take 1 tablet by ORAL route every 12 hours As needed; 20 tablet. Metronidazole 500 mg Oral Tablet - take 1 tablet by ORAL route every 8 hours; 30 tablet. - Medication Reconciliation Form, Thank You Letter, Antibiotic Education, Prescription Opioid Use form. - Follow up: Private Physician; When: 2 - 3 days; Reason: Recheck today's complaints. - Problem is new. - Symptoms have improved. Signatures: Dispatcher [employer] [facility] Geovani Irving PA PA cp Wise, Tara RN RN 2 Rosalind Hernandez RN RN Damon Pollard MD MD 7 Corrections: (The following items were deleted from the chart) 00:09 08/01 23:48 08/01/2020 23:48 Discharged to Home. Impression: Diverticulosis of large wh intestine without perforation or abscess without bleeding; Urinary tract infection, site not specified; Lower abdominal pain, unspecified. Condition is Stable. Forms are Medication Reconciliation Form, Thank You Letter, Antibiotic Education, Prescription Opioid Use. Follow up: Private Physician; When: 2 - 3 days; Reason: Recheck today's complaints. Problem is new. Symptoms have improved. cp
--- NOTE | 2020-08-01 23:49 | ER ---
Nurse's Notes [facility] Name: Radhika Paz Age: 80 yrs Sex: Female : 1940 Arrival Date: 08/01/2020 Time: 17:47 Bed 5 Private MD: Diagnosis: Diverticulosis of large intestine without perforation or abscess without bleeding;Urinary tract infection, site not specified;Lower abdominal pain, unspecified Presentation: 08/01 17:57 Chief complaint: Patient states: i have a really bad pain in my lower abdomen on the tw2 RIGHT side, it hurts me more when i am standing up than when i am sitting down, it started this morning, and it stays constant when i am standing up, i have a little bit of diarrhea. Coronavirus screen: diarrhea, Client presents with at least one sign or symptom that may indicate coronavirus-19. Standard/surgical mask placed on the client. Provider contacted for isolation considerations. Ebola Screen: Patient denies travel to an Ebola-affected area in the 21 days before illness onset. Initial Sepsis Screen: Does the patient meet any 2 criteria? No. Patient's initial sepsis screen is negative. Does the patient have a suspected source of infection? No. Patient's initial sepsis screen is negative. Risk Assessment: Do you want to hurt yourself or someone else? Patient reports no desire to harm self or others. Onset of symptoms was August 01, 2020. 17:57 Method Of Arrival: Ambulatory tw2 17:57 Acuity: AMADOU 3 tw2 Triage Assessment: 18:04 General: Appears in no apparent distress. slender, Behavior is calm, cooperative, tw2 appropriate for age. Pain: Complains of pain in right lower quadrant. GI: Reports lower abdominal pain. Historical: - Allergies: 18:04 No Known Drug Allergies; tw2 - Home Meds: 18:04 gabapentin 300 mg Oral cap 1 cap twice a day [Active]; propafenone 325 mg Oral cp12 1 tw2 cap 2 times per day [Active]; metoprolol succinate 50 mg Oral Tb24 1 tab once daily [Active]; levothyroxine 75 mcg tab 1 tab once daily [Active]; atorvastatin 20 mg oral tab 1 tab once daily [Active]; tolterodine 4 mg Oral cp24 1 cap once daily [Active]; aspirin 81 mg Oral TbEC 1 tab once daily [Active]; Fish Oil 183.3 mg-75 mg -91.6 mg-306 mg oral cap [Active]; Centrum 9 mg iron/15 mL oral liqd [Active]; B-12 Plus 5,000-100 mcg sublingual subl [Active]; Glucosamine 500 mg oral tab [Active]; folic acid 400 mcg Oral tab 1 tab once daily [Active]; Co Q-10 oral oral [Active]; - PMHx: 18:04 chronic back pain; Hypertension; Pacemaker; tw2 - PSHx: 18:04 back surgery; tw2 - Immunization history:: Adult Immunizations. - Social history:: Smoking status: . Screenin:42 Abuse screen: Denies threats or abuse. Denies injuries from another. Nutritional mg2 screening: No deficits noted. Tuberculosis screening: No symptoms or risk factors identified. Fall Risk IV access (20 points). Assessment: 20:00 General: Appears in no apparent distress. Behavior is calm, cooperative, appropriate wh for age. Pain: Complains of pain in abdomen Quality of pain is described as crampy. Neuro: Level of Consciousness is awake, alert, obeys commands, Oriented to person, place, time, situation, Appropriate for age. Cardiovascular: Capillary refill < 3 seconds. Respiratory: Airway is patent Respiratory effort is even, unlabored, Respiratory pattern is regular, symmetrical. GI: Abdomen is flat, non-distended, Reports lower abdominal pain. : No signs and/or symptoms were reported regarding the genitourinary system. EENT: No signs and/or symptoms were reported regarding the EENT system. Derm: Skin is intact, is healthy with good turgor, Skin is pink, warm \T\ dry. normal. Musculoskeletal: Circulation, motion, and sensation intact. 20:26 Reassessment: Notified CT scan PT done with oral Contrast. 21:45 Reassessment: Patient appears in no apparent distress at this time. No changes from previously documented assessment. Patient and/or family updated on plan of care and expected duration. Pain level reassessed. Patient is alert, oriented x 3, equal unlabored respirations, skin warm/dry/pink. 23:30 Reassessment: Patient appears in no apparent distress at this time. Patient and/or family updated on plan of care and expected duration. Pain level reassessed. Patient is alert, oriented x 3, equal unlabored respirations, skin warm/dry/pink. Vital Signs: 17:57 BP 171 / 52; Pulse 69; Resp 18; Temp 97.9(TE); Pulse Ox 99% on R/A; Weight 72.57 kg tw2 (R); Height 5 ft. 8 in. (172.72 cm); Pain 7/10; 21:45 BP 136 / 98; Pulse 63; Resp 18; Pulse Ox 96% on R/A; wh 23:30 BP 161 / 55; Pulse 60; Resp 18; Pulse Ox 94% on R/A; wh 17:57 Body Mass Index 24.33 (72.57 kg, 172.72 cm) tw2 ED Course: 17:47 Patient arrived in ED. ds1 18:00 Triage completed. tw2 18:05 Arm band placed on. tw2 19:54 Geovani Irving PA is PHCP. cp 19:54 Damon Pollard MD is Attending Physician. cp 20:12 Fredrick Manrique RN is Primary Nurse. mg2 20:30 Patient has correct armband on for positive identification. Placed in gown. Bed in low wh position. Call light in reach. Side rails up X 1. Pulse ox on. NIBP on. 20:30 Inserted saline lock: 20 gauge in right antecubital area, using aseptic technique. mg2 Blood collected. by ARON Boyer. 21:42 No provider procedures requiring assistance completed. mg2 22:24 CT Abd/Pelvis - PO and IV Contrast In Process Unspecified. EDMS 08/02 00:08 IV discontinued, intact, bleeding controlled, No redness/swelling at site. Administered Medications: 08/01 20:23 Drug: NS 0.9% 500 ml Route: IV; Rate: 250 ml/hr; Site: right antecubital; 08/02 00:09 Follow up: Response: No adverse reaction; IV Status: Completed infusion 08/01 23:58 Drug: Cipro (ciprofloxacin) 500 mg Route: PO; 08/02 00:09 Follow up: Response: No adverse reaction 08/01 23:58 Drug: metroNIDAZOLE 500 mg Route: PO; 08/02 00:08 Follow up: Response: No adverse reaction 08/01 23:58 Drug: Ativan (LORazepam) 0.5 mg Route: PO; 08/02 00:08 Follow up: Response: No adverse reaction Outcome: 08/01 23:48 Discharge ordered by . lida 08/02 00:07 Discharged to home ambulatory. Condition: stable Discharge instructions given to patient, Instructed on discharge instructions, follow up and referral plans. medication usage, POC Demonstrated understanding of instructions, follow-up care, medications, POC Prescriptions given X 4. 00:09 Patient left the ED. Signatures: Dispatcher [employer] [facility] CroninTrena ds1 Geovani Irving PA PA Rabia Bruce, RN RN tw2 Rosalind Hernandez, ARON RN Fredrick Manrique RN RN mg2 Corrections: (The following items were deleted from the chart) 08/01 21:43 21:42 Inserted saline lock: 20 gauge in right antecubital area, using aseptic mg2 technique. Blood collected. by ARON Boyer mg2
[2020-08-02] MEDS ORDERED: CIPROFLOXACIN HCL 500 MG TAB ONE (00:12)
[2020-08-02] MEDS ORDERED: metroNIDAZOLE 500 MG TABLET ONE (00:12)
[2020-08-02] MEDS ORDERED: LORAZEPAM 0.5 MG TABLET ONE (00:13)
[2020-08-02 00:28] VITALS: BP 171/52; TEMP 97.9; O2SAT 99
--- NOTE | 2020-08-02 11:52 | RAD REPORT ---
EXAM DESCRIPTION: CT ABDOMEN AND PELVIS WITH CONTRAST CLINICAL HISTORY: RLQ abdomen pain COMPARISON: None Available. TECHNIQUE: CT of the abdomen and pelvis performed following IV administration of iodinated contras t. Oral contrast administered. This exam was performed according to our departmental dose-optimizatio n program, which includes automated exposure control, adjustment of the mA and/or kV according to pat ient size and/or use of iterative reconstruction technique. FINDINGS: Lung Bases: Small bilateral pleural effusions, greater on the left than the right. Minimal bibasilar opacities. Bones: Degenerative endplate spondylosis, disc height narrowing, and facet arthropathy of the spine. Abdomen: Liver: The liver has normal size and density. No intrahepatic biliary dilatation. Gallbladder: No calcified gallstones. Spleen, Pancreas, and Adrenal Glands: The spleen, pancreas, and adrenal glands are unremarkable. Kidneys: No hydronephrosis or obstructing calculus. Vasculature: Aortoiliac atherosclerosis. IVC is unremarkable. The portal vein is patent. The proxim al visceral and renal arteries are patent. Stomach: The stomach and duodenum have normal course. Other: No free intraperitoneal air. No free fluid or lymphadenopathy. Pelvis: Bladder: Urinary bladder is unremarkable. Bowel: No dilated loops of large or small bowel. Diffuse scattered diverticula of the colon. Appendix: Not identified. Pelvis: Prior hysterectomy. IMPRESSION: 1. No acute abnormality identified in the abdomen or pelvis. 2. Small bilateral pleural effusions, greater on the left than the right. 3. Diverticulosis without evidence of acute diverticulitis. Electronically signed by: Andrews Irwin 08/01/2020 10:44 PM CDT Due to temporary technical issues with the PACS/Fluency reporting system, reports are being signed by the in house radiologist without review as a courtesy to ensure prompt reporting. The interpreting r adiologist is fully responsible for the content of the report.
== END 2020-08-02 00:09 | disposition home or self-care (01) ==
LOC: ER 17:39
DX: N39.0 Urinary tract infection, site not specified (principal); K57.30 Diverticulosis of large intestine without perforation or abscess without bleeding; I10 Essential (primary) hypertension; Z95.0 Presence of cardiac pacemaker; M54.9 Dorsalgia, unspecified; G89.29 Other chronic pain
CPT/HCPCS: 96361; 87088; 85025; 87086; 80048; 36415; 80076; 83690; 74177; 96360; 99284; Q9967; J7040; 81003; 81015

== ENCOUNTER 2021-06-27 20:04 | Emergency (ER) | payer OTHER ==
--- OUTSIDE RECORDS SUMMARY | 2021-06-27 20:09 | XMS REPORT | Continuity of Care Document ---
:1940 Author Organization [facility] t Address [address] [place] [address] Dr. Millan. [address] [place] [address] Care Team Providers Name Role Phone Yamilet Mei Primary Care Physician Ortiz GEE Attending Clinician Unavailable Thom HUDSON, A Attending Clinician Doctor Unassigned, Name Attending Clinician Unavailable Only, Test Attending Clinician Unavailable Pob, Lab Main Attending Clinician Unavailable THOM, Ortiz Admitting Clinician Unavailable Thom HUDSON, A Admitting Clinician Payers Payer Name Policy Type Policy Number Effective Date Expiration Date S michael [employer] MA[employer]ED [id number] 2021 MEDICARE PPO-CACHORRO 00:00:00 Problems This patient has no known problems. Allergies, Adverse Reactions, Alerts Allergy Allergy Status Severity Reaction(s) Onset Inactive Treating Comm ents Source Name Type Date Date Clinician NO KNOWN Drug Active Univers ALLERGIE Class ity of S [facility] Social History Social Habit Start Date Stop Date Quantity Comments Source Exposure to Not sure [facility] SARS-CoV-2 (event) Medica l Branch Tobacco use and 2021-05-27 2021-05-27 Never used [facility] exposure 00:00:00 00:00:00 [facility] Sex Assigned At [birth year] [facility] 00:00:00 00:00:00 [facility] Smoking Status Start Date Stop Date Source Unknown if ever smoked [facility] Never smoker [facility] Medications Ordered Filled Start Stop Current Ordering Indication Dosage Frequency Signature Comments Components Source Medication Medication Date Date Medication? Clinician (SIG) Name Name neomycin-po 2022-0 Yes PRN, [facility] lymyxin-dex 06-25 Starting ity of amethasone 16:14: on Wed [place] (MAXITROL) 00 06/25/21 at [facility] ical 3.5 1114, Branch mg/g-10,000 Until unit/g-0.1 Discontinu % ed, ophthalmic Routine, ointment Intra-op neomycin-po 0 2021- No PRN, Unive rs lymyxin-dex 06-25 Starting ity of amethasone 16:14: 19:04 [place] ([place]OL[place] 00 :08 06/25/21 at [facility] ica 3.5 1114, Branch mg/g-10,000 Until Wed unit/g-0.1 06/25/21 at % 1404, ophthalmic Routine, ointment Intra-op sodium 0 Yes PRN, Univers chloride 06-25 Starting ity of (NS) 16:13: on Wed [place] injection 00 06/25/21 at [place] [address], Branch Until Discontinu ed, Routine, Intra-op dexamethaso 0 Yes PRN, [facility] ne 06-25 Starting ity of (DECADRON 16:13: on Wed [place] PHOSPHATE) 00 06/25/21 at [facility] ica injection [facility]3, Branch Until Discontinu ed, Routine, Intra-op ceFAZolin 0 Yes PRN, Univers (ANCEF) 06-25 Starting ity of injection 16:13: on Wed [place] 00 06/25/21 at [place] [address], Branch Until Discontinu ed, LINDA, Intra-op sodium 0 2021- No PRN, Univers chloride 06-25 Starting ity of (NS) 16:13: 19:04 on Wed [place] injection 00 :08 06/25/21 at [facility] 1113, Branch Until Wed06/25/21 at 1404, Routine, Intra-op dexamethaso 0 2021- No PRN, Unive rs ne 06-25 Starting ity of (DECADRON 16:13: 19:04 on Wed [place] PHOSPHATE) 00 :08 06/25/21 at [facility] ical injection 1113, Branch Until Wed06/25/21 at 1404, Routine, Intra-op ceFAZolin 2021- No PRN, Univers (ANCEF) 06-25 Starting ity of injection 16:13: 19:04 on Wed 00 :08 06/25/21 at Medical 1113, Branch Until Wed06/25/21 at 1404, LINDA, Intra-op carbachoL Yes PRN, Univers (MIOSTAT) 06-25 Starting ity of 0.01 % 16:11: on [place] intraocular 00 [place], Branch Until Discontinu ed, Routine, Intra-op carbachoL 2021- No PRN, Univers (MIOSTAT) 06-25 Starting ity o f 0.01 % 16:11: 19:04 on Wed intraocular 00 :08 06/25/[place] 1111, Branch Until Wed06/25/21 at 1404, Routine, Intra-op EPINEPHrine Yes PRN, Univer s 1:1,000 (06-25 Starting ity o f mg/mL) 16:00: on Wed (ADRENALIN) 00 06/25/21 at [place] 1100, Branch Until Discontinu ed, Routine, Intra-op DUOVISC Yes PRN, Univers (DUOVISC 06-25 Starting ity of VISCO 16:00: on Wed ELASTIC) 3 06/25/21 at [facility] ical %-4 %(0.5 1100, Branch mL) 1 % Until (0.55 mL) Discontinu intraocular ed, injection Routine, Intra-op balanced Yes PRN, Univers salt irrig 06-25 Starting ity o f soln comb1 16:00: on Wed (BSS PLUS) 00 06/25/21 at [facility] ical ophthalmic 1100, Branch solution Until 500 mL bag Discontinu ed, Routine, Intra-op EPINEPHrine 2021- No PRN, Unive rs 1:1,000 (06-25 Starting ity of mg/mL) 16:00: 19:04 on Wed (ADRENALIN) 00 :08 06/25/21 [place] 1100, Branch Until Wed06/25/21 at 1404, Routine, Intra-op DUOVISC 2021- No PRN, Univers (DUOVISC 06-25 Starting ity of VISCO 16:00: 19:04 on Wed [place] ELASTIC) 3 00 :08 06/25/21 at [facility] ical %-4 %(0.5 1100, Branch mL) 1 % Until Wed (0.55 mL) 06/25/21 at intraocular 1404, injection Routine, Intra-op balanced 2021- No PRN, Univers salt irrig 06-25 Starting ity of soln comb1 16:00: 19:04 on Wed [place] (BSS PLUS) 00 :08 06/25/21 at [facility] ical ophthalmic 1100, Branch solution Until Wed 500 mL bag 06/25/21 at 1404, Routine, Intra-op Hyaluronida Yes PRN, Univer s se, Human 06-25 Starting ity of Recomb. 15:54: on Wed (HYLENEX) 00 06/25/21 at [facility] injection 1054, Branch Until Discontinu ed, Routine, Intra-op water for Yes PRN, Univers irrigation 06-25 Starting ity o f irrigation 15:54: on Wed [place] solution 00 06/25/21 at Medic al 1054, Branch Until Discontinu ed, Routine, Intra-op eye block Yes PRN, Univers syringe 11 06-25 Starting ity o f mL 15:54: on Wed [place] 00 06/25/21 at Medical 1054, Branch Until Discontinu ed, Intra-op Hyaluronida 2021- No PRN, Unive rs se, Human 06-25 Starting ity o f Recomb. 15:54: 19:04 on Wed [place] (HYLENEX) 00 :08 06/25/21 at [facility] [place] injection 1054, Branch Until Wed06/25/21 at 1404, Routine, Intra-op water for 2021- No PRN, Univers irrigation 06-25 Starting ity of irrigation 15:54: 19:04 on Wed [place] solution 00 :08 06/25/21 at Medic al 1054, Branch Until Wed06/25/21 at 1404, Routine, Intra-op eye block 2021- No PRN, Univers syringe 11 06-25 Starting ity of mL 15:54: 19:04 on Wed 00 :08 06/25/21 at Medical 1054, Branch Until Wed06/25/21 at 1404, Intra-op cyclopent 2021- No .5mL 0.5 mL, Univ ers 1%-tropic 06-25 Right Eye, ity of 1%-phenyl 14:30: 14:46 ONCE, 1 [place] 2.5%-ketor 00 :00 dose, On Medic al 0.5% Wed Branch (MYDRIATIC 06/25/21 at #5) 0930, ophthalmic Routine, solution DSU Pre-op syringe 0.5 mL lactated 2021- No 1000mL at 42 Unive rs ringers IV 06-25 mL/hr, ity of infusion 14:30: 14:26 1,000 mL, Rob as 1,000 mL 00 :00 IV Medical Infusion, Branch ONCE, 1 dose, On Wed06/25/21 at 0930, Routine, DSU Pre-op cyclopent 2021- No .5mL 0.5 mL, Univ ers 1%-tropic 06-25 Right Eye, ity of 1%-phenyl 14:30: 14:46 ONCE, 1 [place] 2.5%-ketor 00 :00 dose, On Medic al 0.5% Wed Branch (MYDRIATIC 06/25/21 at #5) 09, ophthalmic Routine, solution DSU Pre-op syringe 0.5 mL lactated 2021- No 1000mL at 42 Unive rs ringers IV 06-25 mL/hr, ity of infusion 14:30: 14:26 1,000 mL, Rob as 1,000 mL 00 :00 IV Medical Infusion, Branch ONCE, 1 dose, On Wed06/25/21 at 0930, Routine, DSU Pre-op Cranberry Yes cranberry Uni vers 400 mg Cap 06-25 ity of 12:04: [place] 03 Medical Branch gluc Yes Glucosamin Univers rodas/chondro 06-25 e ity of rodas A/vit 12:04: [place] C/Mn Medical (GLUCOSAMIN Branch E 1500 COMPLEX ORAL) vit A/vit 2022-0 Yes PreserVisi Un jack C/vit 3-23 on AREDS ity of E/zinc/diana 12:04: [place] er 03 Medical (PRESERVISI Branch ON AREDS ORAL) propafenone Yes propafenon Univers 325 mg 12 3-23 e ER 325 ity of hr capsule 12:04: mg [place] 03 capsule,ex Medical tended Branch release 12 hr TAKE 1 CAPSULE BY MOUTH EVERY 12 HOURS tolterodine 0 Yes tolterodin Univers [place] 4 mg 24 -23 e ER 4 mg ity of hr capsule 12:04: capsule,ex [place] 03 tended Medical release 24 Branch hr TAKE 1 CAPSULE BY MOUTH EVERY DAY atorvastati Yes atorvastat Univers n 10 mg 3-23 in 10 mg ity of tablet 12:04: tablet [place] 03 TAKE 1 Medical TABLET BY Branch MOUTH DAILY IN EVENING WITH MEAL tumeric-gin 0 Yes Take by Un jack g-olive-ore 3-23 mouth. ity of g-capryl 12:04: [place] 100 mg-150 03 Medical mg- 50 Branch mg-150 mg Cap aspirin 81 0 Yes Take by Uni vers mg Cap 3-23 mouth. ity of 12:04: [place] 03 Medical Branch omega 0 Yes Fish Oil Univers 3-dha-epa-f 3-23 ity of sincere oil 12:04: [place] (FISH OIL) 03 [facility] 100-160-1,0 Branch 00 mg Cap vitamin B 2021-0 Yes B-12 Univers complex (B 3-23 ity of COMPLEX-VIT 12:04: [place] OCAMPO B12 03 Medical ORAL) Branch ubidecareno 0 Yes CoQ-10 Univ ers ne (COQ-10 3-23 ity of ORAL) 12:04: [place] 03 Medical Branch omega 2021-0 Yes Fish Oil Univers 3-dha-epa-f 3-23 ity of sincere oil 11:17: [place] (FISH OIL) 35 Medical 100-160-1,0 Branch 00 mg Cap vitamin B 2021-0 Yes B-12 Univers complex (B 3-23 ity of COMPLEX-VIT 11:17: [place] OCAMPO B12 35 Medical ORAL) Branch ubidecareno 0 Yes CoQ-10 Univ ers ne (COQ-10 3-23 ity of ORAL) 11:17: [place] [address] Medical Branch Cranberry Yes cranberry Uni vers 400 mg Cap 3-23 ity of 11:17: [place] [address] Medical Branch gluc Yes Glucosamin Univers rodas/chondro - e ity of rodas A/vit 11:17: [place] C/Mn 35 Medical (GLUCOSAMIN Branch E 1500 COMPLEX ORAL) vit A/vit Yes PreserVisi Un jack C/vit 323 on AREDS ity of E/zinc/diana 11:17: [place] er 35 Medical (PRESERVISI Branch ON AREDS ORAL) propafenone Yes propafenon Univers 325 mg 12 -23 e ER 325 ity of hr capsule 11:17: mg [place] 35 capsule,ex Medical tended Branch release 12 hr TAKE 1 CAPSULE BY MOUTH EVERY 12 HOURS tolterodine Yes tolterodin Univers LA 4 mg 24 -23 e ER 4 mg ity of hr capsule 11:17: capsule,ex [place] 35 tended Medical release 24 Branch hr TAKE 1 CAPSULE BY MOUTH EVERY DAY atorvastati Yes atorvastat Univers n 10 mg 06-25 in 10 mg ity of tablet 11:17: tablet [place] 35 TAKE 1 Medical TABLET BY Branch MOUTH DAILY IN EVENING WITH MEAL tumeric-gin Yes Take by Un jack g-olive-ore 06-25 mouth. ity of g-capryl 11:17: [place] 100 mg-150 35 Medical mg- 50 Branch mg-150 mg Cap aspirin 81 Yes Take by Uni vers mg Cap 06-25 mouth. ity of 11:17: [place] [address] Medical Branch neomycin-po Yes PRN, [facility] lymyxin-dex 3- Starting ity of amethasone 16:54: on Wed (MAXITROL) 00 06/04/21 at [facility] 3.5 1054, Branch mg/g-10,000 Until unit/g-0.1 Discontinu % ed, ophthalmic Routine, ointment Intra-op neomycin-po 2021- No PRN, Unive rs lymyxin-dex 3-02 - Starting ity of amethasone 16:54: 19:37 on Wed [facility] s (MAXITROL) 00 :37 06/04/21 at [place] 3.5 1054, Branch mg/g-10,000 Until Wed unit/g-0.1 06/04/21 at % 1337, ophthalmic Routine, ointment Intra-op dexamethaso Yes PRN, Univer s ne 06-04 Starting ity of (DECADRON 16:53: on Wed [place] PHOSPHATE) 00 06/04/21 at [facility] [place] injection 1053, Branch Until Discontinu ed, Routine, Intra-op ceFAZolin Yes PRN, Univers (ANCEF) 06-04 Starting ity of injection 16:53: on Wed [place] 00 06/04/21 at Medical 1053, Branch Until Discontinu ed, LINDA, Intra-op carbachoL Yes PRN, Univers (MIOSTAT) 06-04 Starting ity of 0.01 % 16:53: on Wed [place] intraocular 00 06/04/21 at Med ical injection 1053, Branch Until Discontinu ed, Routine, Intra-op DUOVISC Yes PRN, Univers (DUOVISC 06-04 Starting ity of VISCO 16:53: on Wed [place] ELASTIC) 3 00 06/04/21 at [facility] %-4 %(0.5 1053, Branch mL) 1 % Until (0.55 mL) Discontinu intraocular ed, injection Routine, Intra-op dexamethaso 2021- No PRN, Unive rs ne 06-04 Starting ity of (DECADRON 16:53: 19:37 on Wed [place] PHOSPHATE) 00 :37 06/04/21 at [facility] [place] injection 1053, Branch Until Wed06/04/21 at 1337, Routine, Intra-op ceFAZolin 2021- No PRN, Univers (ANCEF) 06-04 Starting ity of injection 16:53: 19:37 on Wed [place] 00 :37 06/04/21 at Medical 1053, Branch Until Wed06/04/21 at 1337, LINDA, Intra-op carbachoL 2021- No PRN, Univers (MIOSTAT) 06-04 Starting ity o f 0.01 % 16:53: 19:37 on Wed [place] intraocular 00 :37 06/04/21 at Med ical injection 1053, Branch Until Wed06/04/21 at 1337, Routine, Intra-op DUOVISC 2021- No PRN, Univers (DUOVISC 06-04 Starting ity of VISCO 16:53: 19:37 on Wed [place] ELASTIC) 3 00 :37 06/04/21 at [facility] [place] %-4 %(0.5 1053, Branch mL) 1 % Until Wed (0.55 mL) 06/04/21 at intraocular 1337, injection Routine, Intra-op sodium Yes PRN, Univers chloride 06-04 Starting ity of (NS) 16:52: on Wed [place] injection 00 06/04/21 at Medic al 1052, Branch Until Discontinu ed, Routine, Intra-op sodium 2021- No PRN, Univers chloride 06-04 Starting ity of (NS) 16:52: 19:37 on Wed [place] injection 00 :37 06/04/21 at Medic al 1052, Branch Until Wed06/04/21 at 1337, Routine, Intra-op water for Yes PRN, Univers irrigation 06-04 Starting ity o f irrigation 16:45: on Wed [place] solution 00 06/04/21 at Medica l 1045, Branch Until Discontinu ed, Routine, Intra-op water for 2021- No PRN, Univers irrigation 06-04 Starting ity of irrigation 16:45: 19:37 on Wed [place] solution 00 :37 06/04/21 at Medica l 1045, Branch Until Wed06/04/21 at 1337, Routine, Intra-op Hyaluronida Yes PRN, Univer s se, Human 06-04 Starting ity of Recomb. 16:41: on Wed [place] (HYLENEX) 00 06/04/21 at Medic al injection 1041, Branch Until Discontinu ed, Routine, Intra-op eye block Yes PRN, Univers syringe 11 06-04 Starting ity o f mL 16:41: on Wed [place] 00 06/04/21 at Medical 1041, Branch Until Discontinu ed, Intra-op Hyaluronida 2021- No PRN, Unive rs se, Human 06-04 Starting ity o f Recomb. 16:41: 19:37 on Wed (HYLENEX) 00 :37 06/04/21 at Medic al injection 1041, Branch Until Wed06/04/21 at 1337, Routine, Intra-op eye block 2021- No PRN, Univers syringe 11 06-04 Starting ity of mL 16:41: 19:37 on Wed 00 :37 06/04/21 at [facility] 1041, Branch Until Wed06/04/21 at 1337, Intra-op balanced Yes PRN, Univers salt irrig 06-04 Starting ity o f soln comb1 16:40: on Wed (BSS PLUS) 00 06/04/21 at [facility] ophthalmic 1040, Branch solution Until 500 mL bag Discontinu ed, Routine, Intra-op EPINEPHrine Yes PRN, Univer s 1:1,000 (1 06-04 Starting ity o f mg/mL) 16:40: on Wed (ADRENALIN) 00 06/04/21 at [facility] ical injection 1040, Branch Until Discontinu ed, Routine, Intra-op EPINEPHrine 2021- No PRN, Unive rs 1:1,000 (1 06-04 Starting ity of mg/mL) 16:40: 19:37 on Wed (ADRENALIN) 00 :37 06/04/21 at Med ical injection 1040, Branch Until Wed06/04/21 at 1337, Routine, Intra-op balanced 2021- No PRN, Univers salt irrig 06-04 Starting ity of soln comb1 16:40: 19:37 on Wed [place] (BSS PLUS) 00 :37 06/04/21 at [facility] ophthalmic 1040, Branch solution Until Wed 500 mL bag 06/04/21 at 1337, Routine, Intra-op cyclopent 2021- No .5mL 0.5 mL, Univ ers 1%-tropic 06-04 Left Eye, ity of 1%-phenyl 14:30: 14:46 ONCE, 1 [place] 2.5%-ketor 00 :00 dose, On Medic al 0.5% Wed06/04/21 Branch (MYDRIATIC at 0830, #5) Routine, ophthalmic DSU Pre-op solution syringe 0.5 mL lactated 2021- No 1000mL at 42 [facility] rs ringers IV 06-04 03-02 mL/hr, ity of infusion 14:30: 14:46 1,000 mL, [place] 1,000 mL 00 :00 IV Medical Infusion, Branch ONCE, 1 dose, On Wed06/04/21 at 0830, Routine, DSU Pre-op cyclopent 2021- No .5mL 0.5 mL, Univ ers 1%-tropic 06-04 Left Eye, ity of 1%-phenyl 14:30: 14:46 ONCE, 1 [place] 2.5%-ketor 00 :00 dose, On Medic al 0.5% Wed06/04/21 Branch (MYDRIATIC at 0830, #5) Routine, ophthalmic DSU Pre-op solution syringe 0.5 mL lactated 2021- No 1000mL at 42 [facility] rs ringers IV 06-04 03-02 mL/hr, ity of infusion 14:30: 14:46 1,000 mL, [place] 1,000 mL 00 :00 IV Medical Infusion, Branch ONCE, 1 dose, On Wed06/04/21 at 0830, Routine, DSU Pre-op omega Yes Fish Oil Univers 3-dha-epa-f 06-04 ity of sincere oil 11:37: [place] (FISH OIL) [address] [place] [address] 100-160-1,0 Branch 00 mg Cap vitamin B Yes B-12 Univers complex (B 06-04 ity of COMPLEX-VIT 11:37: [place] OCAMPO B12 Medical ORAL) Branch ubidecareno Yes CoQ-10 Univ ers ne (COQ-10 06-04 ity of ORAL) 11:37: [address] Branch Cranberry Yes cranberry Uni vers 400 mg Cap 06-04 ity of 11:37: [address] Branch gluc Yes Glucosamin Univers rodas/chondro 06-04 e ity of rodas A/vit 11:37: [place] C/Mn Medical (GLUCOSAMIN Branch E 1500 COMPLEX ORAL) vit A/vit Yes PreserVisi Un jack C/vit 06-04 on AREDS ity of E/zinc/diana 11:37: [place] er 34 Medical (PRESERVISI Branch ON AREDS ORAL) propafenone Yes propafenon Univers 325 mg 12 3-02 e ER 325 ity of hr capsule 11:37: mg [place] 34 capsule,ex Medical tended Branch release 12 hr TAKE 1 CAPSULE BY MOUTH EVERY 12 HOURS tolterodine Yes tolterodin Univers [place] 4 mg 24 3-02 e ER 4 mg ity of hr capsule 11:37: capsule,ex [place] 34 tended Medical release 24 Branch hr TAKE 1 CAPSULE BY MOUTH EVERY DAY atorvastati Yes atorvastat Univers n 10 mg 02 in 10 mg ity of tablet 11:37: tablet [place] [address] TAKE 1 Medical TABLET BY Branch MOUTH DAILY IN EVENING WITH MEAL tumeric-gin Yes Take by Un jack g-olive-ore 06-04 mouth. ity of g-capryl 11:37: [place] 100 mg-150 Medical mg- 50 Branch mg-150 mg Cap aspirin 81 Yes Take by Uni vers mg Cap 06-04 mouth. ity of 11:37: [address] Branch omega Yes Fish Oil Univers 3-dha-epa-f 06-04 ity of sincere oil 11:37: [place] (FISH OIL) [address] [place] [address] 100-160-1,0 Branch 00 mg Cap vitamin B Yes B-12 Univers complex (B 06-04 ity of COMPLEX-VIT 11:37: [place] OCAMPO B12 34 Medical ORAL) Branch ubidecareno Yes CoQ-10 Univ ers ne (COQ-10 06-04 ity of ORAL) 11:37: [address] Branch Cranberry Yes cranberry Uni vers 400 mg Cap 06-04 ity of 11:37: [address] Branch gluc Yes Glucosamin Univers rodas/chondro 3-02 e ity of rodas A/vit 11:37: [place] C/Mn Medical (GLUCOSAMIN Branch E 1500 COMPLEX ORAL) vit A/vit Yes PreserVisi Un jack C/vit 3-02 on AREDS ity of E/zinc/diana 11:37: [place] [facility] 34 Medical (PRESERVISI Branch ON AREDS ORAL) propafenone Yes propafenon Univers 325 mg 12 06-04 e ER 325 ity of hr capsule 11:37: mg [place] 34 capsule,ex Medical tended Branch release 12 hr TAKE 1 CAPSULE BY MOUTH EVERY 12 HOURS tolterodine Yes tolterodin Univers [place] 4 mg 24 02 e ER 4 mg ity of hr capsule 11:37: capsule,ex [place] 34 tended Medical release 24 Branch hr TAKE 1 CAPSULE BY MOUTH EVERY DAY atorvastati Yes atorvastat Univers n 10 mg 06-04 in 10 mg ity of tablet 11:37: tablet [place] 34 TAKE 1 Medical TABLET BY Branch MOUTH DAILY IN EVENING WITH MEAL tumeric-gin Yes Take by Un jack g-olive-ore 06-04 mouth. ity of g-capryl 11:37: [place] 100 mg-150 34 Medical mg- 50 Branch mg-150 mg Cap aspirin 81 Yes Take by Uni vers mg Cap 06-04 mouth. ity of 11:37: [address] Branch omega Yes Fish Oil Univers 3-dha-epa-f 06-04 ity of sincere oil 11:37: [place] (FISH OIL) Medical 100-160-1,0 Branch 00 mg Cap vitamin B Yes B-12 Univers complex (B 06-04 ity of COMPLEX-VIT 11:37: [place] OCAMPO B12 34 Medical ORAL) Branch ubidecareno Yes CoQ-10 Univ ers ne (COQ-10 06-04 ity of ORAL) 11:37: [address] Branch Cranberry Yes cranberry Uni vers 400 mg Cap 06-04 ity of 11:37: [address] Branch gluc Yes Glucosamin Univers rodas/chondro 06-04 e ity of rodas A/vit 11:37: [place] C/Mn 34 Medical (GLUCOSAMIN Branch E 1500 COMPLEX ORAL) vit A/vit Yes PreserVisi Un jack C/vit 302 on AREDS ity of E/zinc/diana 11:37: [place] [address] Medical (PRESERVISI Branch ON AREDS ORAL) propafenone Yes propafenon Univers 325 mg 12 02 e ER 325 ity of hr capsule 11:37: mg [place] 34 capsule,ex Medical tended Branch release 12 hr TAKE 1 CAPSULE BY MOUTH EVERY 12 HOURS tolterodine Yes tolterodin Univers [place] 4 mg 24 02 e ER 4 mg ity of hr capsule 11:37: capsule,ex [place] 34 tended Medical release 24 Branch hr TAKE 1 CAPSULE BY MOUTH EVERY DAY atorvastati Yes atorvastat Univers n 10 mg 06-04 in 10 mg ity of tablet 11:37: tablet [place] [address] TAKE 1 Medical TABLET BY Branch MOUTH DAILY IN EVENING WITH MEAL tumeric-gin Yes Take by Un jack g-olive-ore 06-04 mouth. ity of g-capryl 11:37: [place] 100 mg-150 34 Medical mg- 50 Branch mg-150 mg Cap aspirin 81 Yes Take by Uni vers mg Cap 06-04 mouth. ity of 11:37: [address] Branch omega Yes Fish Oil Univers 3-dha-epa-f 06-04 ity of sincere oil 11:37: [place] (FISH OIL) [address] [place] [address] 100-160-1,0 Branch 00 mg Cap vitamin B Yes B-12 Univers complex (B 06-04 ity of COMPLEX-VIT 11:37: [place] OCAMOP B12 34 Medical ORAL) Branch ubidecareno Yes CoQ-10 Univ ers ne (COQ-10 06-04 ity of ORAL) 11:37: [address] Branch Cranberry Yes cranberry Uni vers 400 mg Cap 06-04 ity of 11:37: [address] gluc Yes Glucosamin Univers rodas/chondro 06-04 e ity of rodas A/vit 11:37: [place] C/Mn Medical (GLUCOSAMIN Branch E 1500 COMPLEX ORAL) vit A/vit Yes PreserVisi Un jack C/vit 3 on AREDS ity of E/zinc/diana 11:37: [place] [address] Medical (PRESERVISI Branch ON AREDS ORAL) propafenone Yes propafenon Univers 325 mg 12 302 e ER 325 ity of hr capsule 11:37: mg [place] 34 capsule,ex Medical tended Branch release 12 hr TAKE 1 CAPSULE BY MOUTH EVERY 12 HOURS tolterodine Yes tolterodin Univers [place] 4 mg 24 3-02 e ER 4 mg ity of hr capsule 11:37: capsule,ex [place] 34 tended Medical release 24 Branch hr TAKE 1 CAPSULE BY MOUTH EVERY DAY atorvastati Yes atorvastat Univers n 10 mg 06-04 in 10 mg ity of tablet 11:37: tablet [place] [address] TAKE 1 Medical TABLET BY Branch MOUTH DAILY IN EVENING WITH MEAL tumeric-gin Yes Take by Un jack g-olive-ore 06-04 mouth. ity of g-capryl 11:37: [place] 100 mg-150 34 Medical mg- 50 Branch mg-150 mg Cap aspirin 81 Yes Take by Uni vers mg Cap 06-04 mouth. ity of 11:37: [address] Branch omega Yes Fish Oil Univers 3-dha-epa-f 06-04 ity of sincere oil 11:37: [place] (FISH OIL) Medical 100-160-1,0 Branch 00 mg Cap vitamin B Yes B-12 Univers complex (B 06-04 ity of COMPLEX-VIT 11:37: [place] OCAMPO B12 34 Medical ORAL) Branch ubidecareno Yes CoQ-10 Univ ers ne (COQ-10 06-04 ity of ORAL) 11:37: [address] Branch Cranberry Yes cranberry Uni vers 400 mg Cap 06-04 ity of 11:37: [address] Branch gluc Yes Glucosamin Univers rodas/chondro 06-04 e ity of rodas A/vit 11:37: [place] C/Mn Medical (GLUCOSAMIN Branch E 1500 COMPLEX ORAL) vit A/vit Yes PreserVisi Un jack C/vit 3 on AREDS ity of E/zinc/diana 11:37: [place] [facility] 34 Medical (PRESERVISI Branch ON AREDS ORAL) propafenone Yes propafenon Univers 325 mg 12 3-02 e ER 325 ity of hr capsule 11:37: mg [place] 34 capsule,ex Medical tended Branch release 12 hr TAKE 1 CAPSULE BY MOUTH EVERY 12 HOURS tolterodine Yes tolterodin Univers [place] 4 mg 24 3-02 e ER 4 mg ity of hr capsule 11:37: capsule,ex [place] 34 tended Medical release 24 Branch hr TAKE 1 CAPSULE BY MOUTH EVERY DAY atorvastati Yes atorvastat Univers n 10 mg 302 in 10 mg ity of tablet 11:37: tablet [place] 34 TAKE 1 Medical TABLET BY Branch MOUTH DAILY IN EVENING WITH MEAL tumeric-gin Yes Take by Un jack g-olive-ore 3-02 mouth. ity of g-capryl 11:37: [place] 100 mg-150 34 Medical mg- 50 Branch mg-150 mg Cap aspirin 81 0 Yes Take by Uni vers mg Cap 3-02 mouth. ity of 11:37: [place] 34 Medical Branch tumeric-gin Yes Take by Un jack g-olive-ore 2-25 mouth. ity of g-capryl 14:57: [place] 100 mg-150 38 Medical mg- 50 Branch mg-150 mg Cap aspirin 81 0 Yes Take by Uni vers mg Cap 2-25 mouth. ity of 14:57: [address] Branch omega Yes Fish Oil Univers 3-dha-epa-f 2-25 ity of sincere oil 14:56: [place] (FISH OIL) Medical 100-160-1,0 Branch 00 mg Cap vitamin B Yes B-12 Univers complex (B 2-25 ity of COMPLEX-VIT 14:56: [place] OCAMPO B12 53 Medical ORAL) Branch ubidecareno Yes CoQ-10 Univ ers ne (COQ-10 2-25 ity of ORAL) 14:56: [address] Branch Cranberry 0 Yes cranberry Uni vers 400 mg Cap 2-25 ity of 14:56: [place] [address] Medical Branch gluc 0 Yes Glucosamin Univers rodas/chondro 2-25 e ity of rodas A/vit 14:56: [place] C/Mn 53 Medical (GLUCOSAMIN Branch E 1500 COMPLEX ORAL) vit A/vit Yes PreserVisi Un jack C/vit 2-25 on AREDS ity of E/zinc/diana 14:56: [place] er 53 Medical (PRESERVISI Branch ON AREDS ORAL) propafenone 0 Yes propafenon Univers 325 mg 12 2-25 e ER 325 ity of hr capsule 14:56: mg [place] 53 capsule,ex Medical tended Branch release 12 hr TAKE 1 CAPSULE BY MOUTH EVERY 12 HOURS tolterodine 2-0 Yes tolterodin Univers [place] 4 mg 24 2-25 e ER 4 mg ity of hr capsule 14:56: capsule,ex [place] 53 tended Medical release 24 Branch hr TAKE 1 CAPSULE BY MOUTH EVERY DAY atorvastati 2-0 Yes atorvastat Univers n 10 mg 2-25 in 10 mg ity of tablet 14:56: tablet 53 TAKE 1 Medical TABLET BY Branch MOUTH DAILY IN EVENING WITH MEAL nitrofurant 2022-0 Yes 100mg Take 100 U nivers oin 100 mg 2-17 mg by ity of capsule 00:00: mouth (two) Medical times Branch daily. nitrofurant 2022-0 Yes 100mg Take 100 U nivers oin 100 mg 2-17 mg by ity of capsule 00:00: mouth (two) Medical times Branch daily. nitrofurant 2022-0 Yes 100mg Take 100 U nivers oin 100 mg 2-17 mg by ity of capsule 00:00: mouth (two) Medical times Branch daily. nitrofurant 2022-0 Yes 100mg Take 100 U nivers oin 100 mg 2-17 mg by ity of capsule 00:00: mouth (two) Medical times Branch daily. nitrofurant 2022-0 Yes 100mg Take 100 U nivers oin 100 mg 2-17 mg by ity of capsule 00:00: mouth (two) Medical times Branch daily. nitrofurant 2022-0 Yes 100mg Take 100 U nivers oin 100 mg 2-17 mg by ity of capsule 00:00: mouth (two) Medical times Branch daily. nitrofurant 2022-0 Yes 100mg Take 100 U nivers oin 100 mg 2-17 mg by ity of capsule 00:00: mouth (two) Medical times Branch daily. nitrofurant 2022-0 Yes 100mg Take 100 U nivers oin 100 mg 2-17 mg by ity of capsule 00:00: mouth (two) Medical times Branch daily. gabapentin 2022-0 Yes 300mg Take 300 Un jack 300 mg 1-20 mg by ity of capsule 00:00: mouth at [place] bedtime. Medical Branch gabapentin 2022-0 Yes 300mg Take 300 Un jack 300 mg 1-20 mg by ity of capsule 00:00: mouth at [place] [address] bedtime. Medical Branch gabapentin 2022-0 Yes 300mg Take 300 Un jack 300 mg 1-20 mg by ity of capsule 00:00: mouth at [place] [address] bedtime. Medical Branch gabapentin 2022-0 Yes 300mg Take 300 Un jack 300 mg 1-20 mg by ity of capsule 00:00: mouth at [place] [address] bedtime. Medical Branch gabapentin 2022-0 Yes 300mg Take 300 Un jack 300 mg 1-20 mg by ity of capsule 00:00: mouth at [place] [address] bedtime. Medical Branch gabapentin 2022-0 Yes 300mg Take 300 Un jack 300 mg 1-20 mg by ity of capsule 00:00: mouth at [place] [address] bedtime. Medical Branch gabapentin 2022-0 Yes 300mg Take 300 Un jack 300 mg 1-20 mg by ity of capsule 00:00: mouth at [place] [address] bedtime. Medical Branch gabapentin 2022-0 Yes 300mg Take 300 Un jack 300 mg 1-20 mg by ity of capsule 00:00: mouth at [place] [address] bedtime. Medical Branch amLODIPine 2022-0 Yes 5mg Take 5 mg Un jack 5 mg tablet 1-06 by mouth ity of 00:00: every [place] [address] morning. Medical Branch amLODIPine 2022-0 Yes 5mg Take 5 mg Un jack 5 mg tablet 1-06 by mouth ity of 00:00: every [place] [address] morning. Medical Branch amLODIPine 2022-0 Yes 5mg Take 5 mg Un jack 5 mg tablet 1-06 by mouth ity of 00:00: every [place] [address] morning. Medical Branch amLODIPine 2022-0 Yes 5mg Take 5 mg Un jack 5 mg tablet 1-06 by mouth ity of 00:00: every [place] [address] morning. Medical Branch amLODIPine 2022-0 Yes 5mg Take 5 mg Un jack 5 mg tablet 1-06 by mouth ity of 00:00: every [place] [address] morning. Medical Branch amLODIPine 2022-0 Yes 5mg Take 5 mg Un jack 5 mg tablet 1-06 by mouth ity of 00:00: every [place] [address] morning. Medical Branch amLODIPine 2022-0 Yes 5mg Take 5 mg Un jack 5 mg tablet 1-06 by mouth ity of 00:00: every [place] morning. Medical Branch amLODIPine 2021-0 Yes 5mg Take 5 mg Un jack 5 mg tablet -06 by mouth ity of 00:00: every [place] morning. Medical Branch levothyroxi 2020-04 Yes 75ug Take 75 Uni vers ne 75 mcg 2-31 mcg by ity of tablet 00:00: mouth. Medical Branch levothyroxi 2020-04 Yes 75ug Take 75 Uni vers ne 75 mcg 2-31 mcg by ity of tablet 00:00: mouth. Medical Branch levothyroxi 2020-04 Yes 75ug Take 75 Uni vers ne 75 mcg 2-31 mcg by ity of tablet 00:00: mouth. Medical Branch levothyroxi 2020-04 Yes 75ug Take 75 Uni vers ne 75 mcg 2-31 mcg by ity of tablet 00:00: mouth. Medical Branch levothyroxi 2020-04 Yes 75ug Take 75 Uni vers ne 75 mcg 2-31 mcg by ity of tablet 00:00: mouth. Medical Branch levothyroxi 2020-04 Yes 75ug Take 75 Uni vers ne 75 mcg 2-31 mcg by ity of tablet 00:00: mouth. Medical Branch levothyroxi 2020-04 Yes 75ug Take 75 Uni vers ne 75 mcg 2-31 mcg by ity of tablet 00:00: mouth. Medical Branch levothyroxi 2020-04 Yes 75ug Take 75 Uni vers ne 75 mcg 2-31 mcg by ity of tablet 00:00: mouth. Medical Branch metoprolol 2020-04 Yes TAKE 1 Unive rs succinate 2-30 TABLET BY ity o f XL 50 mg 24 00:00: MOUTH [place] hr tablet 00 TWICE A Medical DAY AT 6AM Branch AND 6PM metoprolol 2020-04 Yes TAKE 1 Unive rs succinate 2-30 TABLET BY ity o f XL 50 mg 24 00:00: MOUTH [place] hr tablet 00 TWICE A Medical DAY AT 6AM Branch AND 6PM metoprolol 2020-04 Yes TAKE 1 Unive rs succinate 2-30 TABLET BY ity o f XL 50 mg 24 00:00: MOUTH [place] hr tablet 00 TWICE A Medical DAY AT 6AM Branch AND 6PM metoprolol 2020-04 Yes TAKE 1 Unive rs succinate 2-30 TABLET BY ity o f XL 50 mg 24 00:00: MOUTH [place] hr tablet 00 TWICE A Medical DAY AT 6AM Branch AND 6PM metoprolol 2020-04 Yes TAKE 1 Unive rs succinate 2-30 TABLET BY ity o f XL 50 mg 24 00:00: MOUTH [place] hr tablet 00 TWICE A Medical DAY AT 6AM Branch AND 6PM metoprolol 2020-04 Yes TAKE 1 Unive rs succinate 2-30 TABLET BY ity o f XL 50 mg 24 00:00: MOUTH [place] hr tablet 00 TWICE A Medical DAY AT 6AM Branch AND 6PM metoprolol 2020-04 Yes TAKE 1 Unive rs succinate 2-30 TABLET BY ity o f XL 50 mg 24 00:00: MOUTH [place] hr tablet 00 TWICE A Medical DAY AT 6AM Branch AND 6PM metoprolol 2020-04 Yes TAKE 1 Unive rs succinate 2-30 TABLET BY ity o f XL 50 mg 24 00:00: MOUTH [place] hr tablet 00 TWICE A Medical DAY AT 6AM Branch AND 6PM Immunizations Ordered Filled Immunization Date Status Comments [facility] e Immunization Name Name SARS-COV-2 COVID-19 2021-01-09 Completed Unive rsity of PFIZER VACCINE 00:00:00 [facility] SARS-COV-2 COVID-19 2021-01-09 Completed Unive rsity of PFIZER VACCINE 00:00:00 [facility] SARS-COV-2 COVID-19 2020-06-17 Completed Unive rsity of PFIZER VACCINE 00:00:00 [facility] SARS-COV-2 COVID-19 2020-06-17 Completed Unive rsity of PFIZER VACCINE 00:00:00 [facility] SARS-COV-2 COVID-19 2020-06-17 Completed Unive rsity of PFIZER VACCINE 00:00:00 [facility] SARS-COV-2 COVID-19 2020-06-17 Completed Unive rsity of PFIZER VACCINE 00:00:00 [facility] SARS-COV-2 COVID-19 2020-06-17 Completed Unive rsity of PFIZER VACCINE 00:00:00 [facility] SARS-COV-2 COVID-19 2020-06-17 Completed Unive rsity of PFIZER VACCINE 00:00:00 [facility] SARS-COV-2 COVID-19 2020-06-17 Completed Unive rsity of PFIZER VACCINE 00:00:00 [facility] SARS-COV-2 COVID-19 2020-06-17 Completed Unive rsity of PFIZER VACCINE 00:00:00 [facility] SARS-COV-2 COVID-19 2020-06-17 Completed Unive rsity of PFIZER VACCINE 00:00:00 [facility] SARS-COV-2 COVID-19 2020-06-17 Completed Unive rsity of PFIZER VACCINE 00:00:00 [facility] Branch SARS-COV-2 COVID-19 2020-06-17 Completed Unive rsity of PFIZER VACCINE 00:00:00 [facility] SARS-COV-2 COVID-19 2020-05-27 Completed Unive rsity of PFIZER VACCINE 00:00:00 [facility] SARS-COV-2 COVID-19 2020-05-27 Completed Unive rsity of PFIZER VACCINE 00:00:00 [facility] SARS-COV-2 COVID-19 2020-05-27 Completed Unive rsity of PFIZER VACCINE 00:00:00 [facility] SARS-COV-2 COVID-19 2020-05-27 Completed Unive rsity of PFIZER VACCINE 00:00:00 [facility] SARS-COV-2 COVID-19 2020-05-27 Completed Unive rsity of PFIZER VACCINE 00:00:00 [facility] SARS-COV-2 COVID-19 2020-05-27 Completed Unive rsity of PFIZER VACCINE 00:00:00 [facility] SARS-COV-2 COVID-19 2020-05-27 Completed Unive rsity of PFIZER VACCINE 00:00:00 [facility] SARS-COV-2 COVID-19 2020-05-27 Completed Unive rsity of PFIZER VACCINE 00:00:00 [facility] SARS-COV-2 COVID-19 2020-05-27 Completed Unive rsity of PFIZER VACCINE 00:00:00 [facility] SARS-COV-2 COVID-19 2020-05-27 Completed Unive rsity of PFIZER VACCINE 00:00:00 [facility] SARS-COV-2 COVID-19 2020-05-27 Completed Unive rsity of PFIZER VACCINE 00:00:00 [facility] Vital Signs Vital Name Observation Time Observation Value Comments Source Heart rate 2021-06-25 16:36:00 64 /min [facility] [place] [facility] Respiratory rate 2021-06-25 16:36:00 17 /min Univ ersity of [place] [facility] Oxygen saturation in 2021-06-25 16:36:00 97 /min University of Arterial blood by [facility] Pulse oximetry Branch Systolic blood 2021-06-25 16:35:00 161 mm[Hg] Univer sity of pressure [place] [facility] Diastolic blood 2021-06-25 16:35:00 54 mm[Hg] Unive rsity of pressure [place] [facility] Body temperature 2021-06-25 16:19:00 36.61 Ashley Univ ers[facility] [place] [facility] Body height 2021-06-24 14:30:00 172.7 cm [facility] [place] [facility] Body weight 2021-06-24 14:30:00 68.04 kg [facility] [place] [facility] BMI 2021-06-24 14:30:00 22.81 kg/m2 [facility] [place] [facility] Systolic blood 2021-06-25 14:47:00 167 mm[Hg] Univer sity of pressure [place] [facility] Diastolic blood 2021-06-25 14:47:00 58 mm[Hg] Unive rsity of pressure [place] [facility] Heart rate 2021-06-25 14:28:00 65 /min [facility] [place] [facility] Body temperature 2021-06-25 14:18:00 36.5 [place] Univ [facility] [place] [facility] Respiratory rate 2021-06-25 14:18:00 15 /min Univ ersity of [place] [facility] Oxygen saturation in 2021-06-25 14:18:00 100 /min University of Arterial blood by [facility] Pulse oximetry Branch Body height 2021-06-24 14:30:00 172.7 cm [facility] [place] [facility] Body weight 2021-06-24 14:30:00 68.04 kg [facility] [place] [facility] BMI 2021-06-24 14:30:00 22.81 kg/m2 [facility] [place] [facility] Systolic blood 2021-06-04 17:24:00 158 mm[Hg] Univer sity of pressure [place] [facility] Diastolic blood 2021-06-04 17:24:00 40 mm[Hg] Unive rsity of pressure [facility] Heart rate 2021-06-04 17:24:00 70 /min Universi ty of [facility] Branch Respiratory rate 2021-06-04 17:24:00 18 /min Univ ersity of [facility] Branch Oxygen saturation in 2021-06-04 17:24:00 97 /min University of Arterial blood by [facility] Pulse oximetry Branch Body temperature 2021-06-04 17:10:00 36.11 [place] Univ ersity of [facility] Body height 2021-05-28 15:44:00 172.7 cm [facility] ty [facility] [place] [facility] [place] Body weight 2021-05-28 15:44:00 72.6 kg Universi ty of [facility] BMI 2021-05-28 15:44:00 24.34 kg/m2 Universi ty of [facility] Systolic blood 2021-06-04 14:34:00 146 mm[Hg] Univer sity of [facility] Diastolic blood 2021-06-04 14:34:00 67 mm[Hg] Unive rsity of pressure [facility] Heart rate 2021-06-04 14:34:00 71 /min Universi ty of [facility] Body temperature 2021-06-04 14:34:00 36.78 [place] Univ ersity of [facility] Respiratory rate 2021-06-04 14:34:00 16 /min Univ ersity of [facility] Oxygen saturation in 2021-06-04 14:34:00 100 /min University of Arterial blood by [facility] Pulse oximetry Branch Body height 2021-05-28 15:44:00 172.7 cm [facility] [place] [facility] [place] Body weight 2021-05-28 15:44:00 72.6 kg Universi ty of [facility] BMI 2021-05-28 15:44:00 24.34 kg/m2 Universi ty of [facility] Procedures Procedure Date / Time Performing Source Performed Clinician PHACOEMULSIFICATION OF 2021-06-[address] [facility] CAT[facility]ACT [facility] BENEFITS 2021-06-23 Doctor Unassigned, [facility] 15:02:45 [place] [facility] PHACOEMULSIFICATION OF 2021-06-[address] [facility] CATARACT WITH INTRAOCULAR 16:30:00 [facility] LENS IMPLANT PATIENT QUESTIONNAIRE 2021-06-04 Doctor Unassallen, [facility] 06:01:00 [place] [facility] [place] ASSIGNMENT OF BENEFITS 2021-05-26 Doctor Unassigned, [facility] 16:55:51 [place] [facility] [place] Encounters Start End Encounter Admission Attending Care Care Encounter Source Date/Time Date/Time Type Type Clinicians Facility Department ID 2021-05-22 Emergency [facility] [id number] Univers 08:48:27 ity [facility] 2021-05-19 Outpatient [facility] OPH [id number] Univers 10:31:19 JOAQUIN [facility] 2021-06-25 2021-06-25 Outpatient Sung [facility] OPH [id number] Univers 09:07:00 12:03:00 JOAQUIN estelle [facility] 2021-06-25 2021-06-25 [facility] [id number] Univers 09:07:00 12:03:00 Encounter [place]quin [place] [id number] ity [id number] [id number] [facility] 071 [place] 2021-06-25 2021-06-25 Surgery [facility] [id number] Univers 10:09:00 10:47:00 [place]quin [place] [id number] [id number] [id number] [facility] 020 Branch 2021-06-23 2021-06-23 Orders Doctor BAHENA [id number] Univers 00:00:00 00:00:00 Only Unassigned, MIKE [id number] ity of [place] [facility] [id number] Rob as [id number] [place] [address] Branch 2021-06-04 2021-06-04 Outpatient Sung [facility] OPH [id number] Univers 08:16:00 11:35:00 JOAQUIN estelle [facility] 2021-06-04 2021-06[facility] [id number] Univers 08:16:00 11:35:00 Encounter Joaquin Alcantar ALEKSANDRA [id number] ity [id number] [id number] [facility] 071 Branch 2021-06-04 2021-06-04 [facility] [id number] Univers 10:14:00 10:56:00 Joaquin Alcantar ALEKSANDRA [id number] ity [id number] [id number] [facility] 020 Branch 2021-06-04 2021-06-04 Orders Doctor JOSEF [id number] Univers 00:00:00 00:00:00 Only Unassigned, MIKE [id number] ity of [place] [facility] [id number] Rob as [id number] [facility] 009 Branch 2021-06-02 2021-06-02 Laboratory Only, Adc Test [facility] [id number]. [id number] Univers 14:30:00 14:45:00 Only Joaquin Gee ALEKSANDRA 350.1.13.1 0 [place] [id number] [facility] 353 Branch 2021-06-02 2021-06-02 Outpatient R [facility] [id number] Univers 14:30:00 14:30:00 [id number] ity of [facility] 2021-06-02 2021-06-02 Outpatient R [facility] [id number] Univers 14:30:00 14:30:00 JOAQUIN ity [facility] 2021-05-26 2021-05-26 Laboratory Only, Adc Test [facility] 1.2.840. [id number] Univers 10:30:00 10:45:00 Only Joaquin Gee ALEKSANDRA 350.1.13.1 0 [id number] [id number] [place] [address] Branch 2021-05-26 2021-05-26 Outpatient R [facility] [id number] Univers 10:30:00 10:30:00 [id number] [facility] 2021-05-26 2021-05-26 [facility] [id number] Univers 10:30:00 10:30:00 JOAQUIN estelle [facility] 2021-05-26 2021-05-26 Orders Doctor JOSEF [id number] Univers 00:00:00 00:00:00 Only Unassigned, MIKE [id number] ity of [place] [facility] 4.2.7.2.686 Rob as [id number] [address] 2021-05-12 2021-05-12 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
[2021-06-27] MEDS ORDERED: MORPHINE 4 MG/ML SYR ONE (20:39)
[2021-06-27] MEDS ORDERED: ONDANSETRON 4 MG/2 ML VIAL ONE (20:40)
[2021-06-27] MEDS ORDERED: TETRACAINE HCL 0.5% 4ML OPTH ONE (20:40)
[2021-06-27 20:48] LABS: Absolute Lymphocytes (CBC) 1.3 K/uL (0.7-4.9); Hematocrit 38.8 % (36.0-45.0); Lymphocytes % 17.9 % (15.3-44.8); MPV 7.2 fL (7.6-11.3); RBC Red Blood Cell Count 4.26 M/uL (3.86-4.86)
[2021-06-27 21:05] LABS: Albumin 3.7 g/dL (3.4-5.0); Bilirubin Total 0.5 mg/dL (0.2-1.0); Potassium 4.3 mmol/L (3.5-5.1); Protein, Total 6.9 g/dL (6.4-8.2)
--- NOTE | 2021-06-27 21:30 | EDPHYS ---
Physician Documentation [facility] Name: Radhika Paz Age: 81 yrs Sex: Female : 1940 Arrival Date: 06/27/2021 Time: 20:10 Bed 7 Private MD: ED Physician Miguel Del Valle HPI: 06/27 21:26 This 81 yrs old Female presents to ER via EMS with complaints of leg pain. jmm 21:26 The patient presents with pain. Onset: The symptoms/episode began/occurred gradually, 2 jmm day(s) ago. Modifying factors: The symptoms are alleviated by nothing. the symptoms are aggravated by nothing. Associated signs and symptoms: Pertinent negatives calf tenderness, fever. This is an 81-year-old female with history of chronic back pain, hypertension the presents emerged from with complaints of left leg pain, particular to the left thigh. Patient does see pain management for similar episodes of pain. Patient also complains of right eye redness but denies pain. Patient was evaluated by ophthalmology yesterday with normal pressures. Patient is status post cataract surgery. Patient also complains of nausea and vomiting which she attributes to the pain from her left leg. Denies abdominal pain.. Historical: - Allergies: 20:13 No Known Allergies; st1 - PMHx: 20:13 chronic back pain; Hypertension; Pacemaker; st1 - Immunization history:: Adult Immunizations up to date. - Social history:: Smoking status: Patient denies any tobacco usage or history of. Patient/guardian denies using alcohol, street drugs, IV drugs, tobacco products. ROS: 21:26 Constitutional: Negative for fever, chills, and weight loss, Cardiovascular: Negative jmm for chest pain, palpitations, and edema, Respiratory: Negative for shortness of breath, cough, wheezing, and pleuritic chest pain. 21:26 Abdomen/GI: Positive for nausea and vomiting. 21:26 Back: Positive for pain with movement. 21:26 All other systems are negative. Exam: 21:26 Constitutional: This is a well developed, well nourished patient who is awake, alert, jmm and in no acute distress. Head/Face: atraumatic. 21:26 ENT: Moist Mucus Membranes Neck: Trachea midline, Supple Chest/axilla: Normal chest wall appearance and motion. Cardiovascular: Regular rate and rhythm. No edema appreciated Respiratory: Normal respirations, no respiratory distress appreciated Abdomen/GI: Non distended, soft Back: Normal ROM Skin: General appearance color normal 21:26 Eyes: Extraocular movements: intact throughout. 21:26 Musculoskeletal/extremity: ROM: intact in all extremities. 21:26 Skin: Appearance: Color: normal in color. 21:26 Neuro: Orientation: is normal, Mentation: is normal, Memory: is normal. 21:26 Psych: Behavior/mood is pleasant, cooperative. Vital Signs: 20:10 BP 193 / 66; Pulse 76; Resp 14; Temp 98.0; Pulse Ox 98% on R/A; Weight 72.57 kg; Height st1 5 ft. 8 in. (172.72 cm); Pain 10/10; 20:20 BP 188 / 57; Pulse 70; Resp 16; Pulse Ox 97% on R/A; st1 21:50 BP 158 / 47; Pulse 70; Resp 16; Pulse Ox 99% on R/A; st1 20:10 Body Mass Index 24.33 (72.57 kg, 172.72 cm) st1 MDM: 20:19 Patient medically screened. [facility] 21:28 Data reviewed: vital signs, nurses notes. Counseling: I had a detailed discussion with audra the patient and/or guardian regarding: the historical points, exam findings, and any diagnostic results supporting the discharge/admit diagnosis, lab results, radiology results, the need for outpatient follow up, to return to the emergency department if symptoms worsen or persist or if there are any questions or concerns that arise at home. ED course: Left leg is negative for DVT. Patient states feeling much better. Abdomen was reexamined, no pain on palpation. Patient states that she does have ophthalmic antibiotic she is currently taking. Right eye pressure feels similar to the left eye.. 06/27 20:19 Order name: CBC with Diff; Complete Time: 20:55 [facility] 06/27 20:19 Order name: CMP; Complete Time: 21:17 [facility] 06/27 20:19 Order name: Lipase; Complete Time: 21:17 [facility] 06/27 20:20 Order name: US Extremity Venous Unilateral Ltd; Complete Time: 00:08 [facility] 06/27 20:19 Order name: IV Saline Lock; Complete Time: 20:28 [facility] 03/25 20:19 Order name: Labs collected and sent; Complete Time: 20:33 [facility] Administered Medications: 20:33 Not Given (Patient Refused): Tetracaine Drops 0.5 % 1 drops Ophthalmic once st1 20:39 Drug: Zofran (Ondansetron) 4 mg Route: IVP; Site: right antecubital; st1 21:51 Follow up: Response: No adverse reaction; Nausea is decreased st1 20:39 Drug: morphine 4 mg Route: IVP; Site: right antecubital; st1 21:51 Follow up: Response: No adverse reaction; Pain is decreased st1 20:40 Drug: Tetracaine Drops 0.5 % 1 drops {Note: medication given to ADRIANO Bender for eye st1 pressure check .} Route: Ophthalmic; Site: right eye; 21:51 Follow up: Response: No adverse reaction st1 Disposition: 06/28 06:58 Co-signature as Attending Physician, Miguel Del Valle DO I agree with the assessment and ms3 plan of care. Disposition Summary: 06/27/21 21:29 Discharge Ordered Location: Home [facility] Condition: Stable [facility] Diagnosis - Pain in left leg jmm - Other acute conjunctivitis jm - Vomiting [facility] Followup: [facility] - With: Private Physician - When: 2 - 3 days - Reason: Recheck today's complaints, Continuance of care, Re-evaluation by your physician Discharge Instructions: - Discharge Summary Sheet [facility] - Vomiting, Adult jm Forms: - Medication Reconciliation Form [facility] - Thank You Letter [facility] - Antibiotic Education [facility] - Prescription Opioid Use [facility] Prescriptions: - ondansetron 4 mg Oral tablet,disintegrating - place 1 tablet by TRANSLINGUAL route every 4-6 hours for 1 day; 20 tablet; [facility] Refills: 0, Product Selection Permitted Signatures: Dispatcher [employer] EDNapoleon Billy PA PA jmm Sims, Marcus, DO DO ms3 Nancy Messer, RN RN st1
--- NOTE | 2021-06-27 21:30 | ER ---
Nurse's Notes [facility] Name: Radhika Paz Age: 81 yrs Sex: Female : 1940 Arrival Date: 06/27/2021 Time: 20:10 Bed 7 Private MD: Diagnosis: Pain in left leg;Other acute conjunctivitis;Vomiting Presentation: 06/27 20:10 Chief complaint: EMS states: The patient is complaining of left upper leg pain 10 st1 when she moves her leg. She also had nausea and vomiting yesterday. The patient had right eye cataract surgery on Wednesday. Coronavirus screen: Vaccine status: Patient reports receiving the 2nd dose of the covid vaccine. IDverge. Ebola Screen: No symptoms or risks identified at this time. Initial Sepsis Screen: Does the patient meet any 2 criteria? No. Patient's initial sepsis screen is negative. Does the patient have a suspected source of infection? No. Patient's initial sepsis screen is negative. Risk Assessment: Do you want to hurt yourself or someone else? Patient reports no desire to harm self or others. Onset of symptoms was June 27, 2021. 20:10 Method Of Arrival: EMS: [facility] st1 20:10 Acuity: AMADOU 3 st1 Triage Assessment: 20:13 General: Appears in no apparent distress. uncomfortable, well groomed, well developed, st1 Behavior is calm, cooperative. Pain: Complains of pain in left upper leg Pain radiates to down her left leg Pain currently is 10 out of 10 on a pain scale. level that patient reports is acceptable is 2 out of 10 on a pain scale. Quality of pain is described as burning, sharp, shooting, stabbing, squeezing. Neuro: No deficits noted. Cardiovascular: No deficits noted. Respiratory: No deficits noted. Musculoskeletal: Reports weakness in left leg. Historical: - Allergies: 20:13 No Known Allergies; st1 - PMHx: 20:13 chronic back pain; Hypertension; Pacemaker; st1 - Immunization history:: Adult Immunizations up to date. - Social history:: Smoking status: Patient denies any tobacco usage or history of. Patient/guardian denies using alcohol, street drugs, IV drugs, tobacco products. Screenin:16 Abuse screen: Denies threats or abuse. Nutritional screening: No deficits noted. st1 Tuberculosis screening: No symptoms or risk factors identified. Fall Risk None identified. No fall in past 12 months (0 pts). No secondary diagnosis (0 pts). IV access (20 points). Ambulatory Aid- None/Bed Rest/Nurse Assist (0 pts). Gait- Weak (10 pts.). Mental Status- Oriented to own ability (0 pts). Total Boothe Fall Scale indicates Low Risk Score (25-44 pts). Fall prevention measures have been instituted. Side Rails Up X 2 Frequent Obs/Assesments occuring As available Patient and Family Educated on Fall Prevention Program and strategies. Assessment: 20:16 Reassessment: Please see triage assessment. st1 Vital Signs: 20:10 BP 193 / 66; Pulse 76; Resp 14; Temp 98.0; Pulse Ox 98% on R/A; Weight 72.57 kg; Height st1 5 ft. 8 in. (172.72 cm); Pain 10/10; 20:20 BP 188 / 57; Pulse 70; Resp 16; Pulse Ox 97% on R/A; st1 21:50 BP 158 / 47; Pulse 70; Resp 16; Pulse Ox 99% on R/A; st1 20:10 Body Mass Index 24.33 (72.57 kg, 172.72 cm) st1 ED Course: 20:10 Patient arrived in ED. ja2 20:10 Nancy Messer, RN is Primary Nurse. st1 20:10 Napoleon Lanza PA is PHCP. jmm 20:10 Miguel Del Valle DO is Attending Physician. jmm 20:13 Triage completed. st1 20:13 Arm band placed on right wrist. st1 20:16 Patient has correct armband on for positive identification. Placed in gown. Bed in low st1 position. Call light in reach. Side rails up X2. Door closed. Warm blanket given. Head of bed elevated. 20:16 No provider procedures requiring assistance completed. Maintain EMS IV. Dressing st1 intact. Site clean \T\ dry. Gauge \T\ site: 22 gauge right AC. 20:33 CBC with Diff Sent. st1 20:33 CMP Sent. st1 20:33 Lipase Sent. st1 21:01 US Extremity Venous Unilateral Ltd In Process Unspecified. EDMS 22:12 IV discontinued, intact, bleeding controlled, No redness/swelling at site. Pressure st1 dressing applied. Administered Medications: 20:33 Not Given (Patient Refused): Tetracaine Drops 0.5 % 1 drops Ophthalmic once st1 20:39 Drug: Zofran (Ondansetron) 4 mg Route: IVP; Site: right antecubital; st1 21:51 Follow up: Response: No adverse reaction; Nausea is decreased st1 20:39 Drug: morphine 4 mg Route: IVP; Site: right antecubital; st1 21:51 Follow up: Response: No adverse reaction; Pain is decreased st1 20:40 Drug: Tetracaine Drops 0.5 % 1 drops {Note: medication given to ADRIANO Bender for eye st1 pressure check .} Route: Ophthalmic; Site: right eye; 21:51 Follow up: Response: No adverse reaction st1 Outcome: 21:29 Discharge ordered by MD. dobson 22:12 Discharged to home st1 22:12 Condition: stable 22:12 Discharge instructions given to patient, Instructed on discharge instructions, follow up and referral plans. no drinking with medication, medication usage, Demonstrated understanding of instructions, follow-up care, medications, Prescriptions given X 1. 22:14 Patient left the ED. st1 Signatures: Dispatcher [employer] EDMS Napoleon Lanza PA PA jmm Alexander, Jessica ja2 Tingle, Shellie, ARON RN st1
--- NOTE | 2021-06-27 22:00 | RAD REPORT ---
EXAM DESCRIPTION: US - Extremity Venous Uni Ltd - 06/27/2021 8:59 pm CLINICAL HISTORY: leg pain COMPARISON: None. TECHNIQUE: Real-time sonographic evaluation of the left lower extremity deep venous system was perfo rmed. FINDINGS: Normal compressibility, flow augmentation, phasic flow and spontaneous flow are identified in the left lower extremity common femoral, superficial femoral, popliteal and posterior tibial vein s. No intraluminal filling defects seen. IMPRESSION: No DVT in the left lower extremity.
[2021-06-27 23:28] VITALS: TEMP 98
[2021-06-27 23:30] VITALS: BP 158/47; O2SAT 99
== END 2021-06-27 22:14 | disposition home or self-care (01) ==
LOC: ER 20:04
DX: M79.652 Pain in left thigh (principal); H10.31 Unspecified acute conjunctivitis, right eye; R11.10 Vomiting, unspecified; I10 Essential (primary) hypertension; M54.9 Dorsalgia, unspecified
CPT/HCPCS: 85025; 36415; 83690; 80053; 93971; 96375; 96374; 99284; J2405

== ENCOUNTER 2022-09-18 09:08 | Observation (INO) | payer OTHER ==
--- OUTSIDE RECORDS SUMMARY | 2022-09-18 09:14 | XMS REPORT | Continuity of Care Document ---
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 ORAL) vit A/vit Yes PreserVisi Un jack C/vit 06-04 on AREDS ity of E/zinc/diana 11:37: [place] er Medical (PRESERVISI Branch ON AREDS ORAL) propafenone Yes propafenon Univers 325 mg 12 02 e ER 325 ity of hr capsule 11:37: mg [place] [address] capsule,ex Medical tended Branch release 12 hr TAKE 1 CAPSULE BY MOUTH EVERY 12 HOURS tolterodine Yes tolterodin [facility] [place] 4 mg 24 06-04 e ER 4 mg ity of hr capsule 11:37: capsule,ex [place] 34 tended Medical release 24 Branch hr TAKE 1 CAPSULE BY MOUTH EVERY DAY atorvastati Yes atorvastat [facility] n 10 mg 06-04 in 10 mg ity of tablet 11:37: tablet [place] [address] TAKE 1 Medical TABLET BY Branch MOUTH DAILY IN EVENING WITH MEAL tumeric-gin Yes Take by Uni vers g-olive-ore 06-04 mouth. ity of g-capryl 11:37: [place] 100 mg-150 34 Medical mg- 50 Branch mg-150 mg Cap aspirin 81 Yes Take by Univ ers mg Cap 06-04 mouth. ity of 11:37: [address] omega Yes Fish Oil Univers 3-dha-epa-f 06-04 ity of sincere oil 11:37: [place] (FISH OIL) 34 Medical 100-160-1,0 Branch 00 mg Cap vitamin B Yes B-12 Univers complex (B 06-04 ity of COMPLEX-VIT 11:37: [place] OCAMPO B12 34 Medical ORAL) Branch ubidecareno Yes CoQ-10 Univ ers ne (COQ-10 06-04 ity of ORAL) 11:37: [place] [address] Medical Branch Cranberry Yes cranberry Uni vers 400 mg Cap 06-04 ity of 11:37: [place] [address] Medical Branch gluc Yes Glucosamin Univers rodas/chondro 06-04 e ity of rodas A/vit 11:37: [place] C/Mn 34 Medical (GLUCOSAMIN Branch E 1500 COMPLEX ORAL) vit A/vit Yes PreserVisi Un jack C/vit 06-04 on AREDS ity of E/zinc/diana 11:37: [place] er 34 Medical (PRESERVISI Branch ON AREDS ORAL) propafenone Yes propafenon Univers 325 mg 12 06-04 e ER 325 ity of hr capsule 11:37: mg [place] 34 capsule,ex Medical tended Branch release 12 hr TAKE 1 CAPSULE BY MOUTH EVERY 12 HOURS tolterodine Yes tolterodin [facility] [place] 4 mg 24 06-04 e ER 4 mg ity of hr capsule 11:37: capsule,ex [place] 34 tended Medical release 24 Branch hr TAKE 1 CAPSULE BY MOUTH EVERY DAY atorvastati Yes atorvastat Univers n 10 mg 06-04 in 10 mg ity of tablet 11:37: tablet [place] 34 TAKE 1 Medical TABLET BY Branch MOUTH DAILY IN EVENING WITH MEAL tumeric-gin Yes Take by Uni vers g-olive-ore 06-04 mouth. ity of g-capryl 11:37: [place] 100 mg-150 34 Medical mg- 50 Branch mg-150 mg Cap aspirin [address] [facility] ers mg Cap 06-04 mouth. ity of 11:37: [address] Branch omega Yes Fish Oil Univers 3-dha-epa-f 06-04 ity of sincere oil 11:37: [place] (FISH OIL) 34 Medical 100-160-1,0 Branch 00 mg Cap vitamin B Yes B-12 Univers complex (B 06-04 ity of COMPLEX-VIT 11:37: [place] OCAMPO B12 34 Medical ORAL) Branch ubidecareno Yes CoQ-10 Univ ers ne (COQ-10 06-04 ity of ORAL) 11:37: [address] Branch Cranberry Yes cranberry Uni vers 400 mg Cap 06-04 ity of 11:37: [address] Branch gluc Yes Glucosamin Univers rodas/chondro 06-04 e ity of rodas A/vit 11:37: [place] C/Mn 34 Medical (GLUCOSAMIN Branch E 1500 COMPLEX ORAL) vit A/vit Yes PreserVisi Un jack C/vit 06-04 on AREDS ity of E/zinc/diana 11:37: [place] er 34 Medical (PRESERVISI Branch ON AREDS ORAL) propafenone Yes propafenon Univers 325 mg 12 06-04 e ER 325 ity of hr capsule 11:37: mg [place] 34 capsule,ex Medical tended Branch release 12 hr TAKE 1 CAPSULE BY MOUTH EVERY 12 HOURS tolterodine Yes tolterodin Univers [place] 4 mg 24 06-04 e ER 4 mg ity of hr capsule 11:37: capsule,ex [place] 34 tended Medical release 24 Branch hr TAKE 1 CAPSULE BY MOUTH EVERY DAY atorvastati Yes atorvastat Univers n 10 mg 06-04 in 10 mg ity of tablet 11:37: tablet [place] [address] TAKE 1 Medical TABLET BY Branch MOUTH DAILY IN EVENING WITH MEAL tumeric-gin Yes Take by Uni vers g-olive-ore 06-04 mouth. ity of g-capryl 11:37: [place] 100 mg-150 34 Medical mg- 50 Branch mg-150 mg Cap aspirin 81 Yes Take by Univ ers mg Cap 06-04 mouth. ity of 11:37: [address] tumeric-gin Yes Take by Uni vers g-olive-ore 2-25 mouth. ity of g-capryl 14:57: [place] 100 mg-150 38 Medical mg- 50 Branch mg-150 mg Cap aspirin 81 Yes Take by Univ ers mg Cap 2-25 mouth. ity of 14:57: [place] 38 Medical Branch omega Yes Fish Oil Univers 3-dha-epa-f 2-25 ity of sincere oil 14:56: [place] (FISH OIL) Medical 100-160-1,0 Branch 00 mg Cap vitamin B Yes B-12 Univers complex (B 2-25 ity of COMPLEX-VIT 14:56: [place] OCAMPO B12 53 Medical ORAL) Branch ubidecareno Yes CoQ-10 Univ ers ne (COQ-10 2-25 ity of ORAL) 14:56: [place] [address] Medical Branch Cranberry Yes cranberry Uni vers 400 mg Cap 2-25 ity of 14:56: [place] [address] Medical Branch gluc Yes Glucosamin Univers rodas/chondro 2-25 e ity of rodas A/vit 14:56: [place] C/Mn 53 Medical (GLUCOSAMIN Branch E 1500 COMPLEX ORAL) vit A/vit Yes PreserVisi Un jack C/vit 2-25 on AREDS ity of E/zinc/diana 14:56: [place] er 53 Medical (PRESERVISI Branch ON AREDS ORAL) propafenone Yes propafenon Univers 325 mg 12 2-25 e ER 325 ity of hr capsule 14:56: mg [place] 53 capsule,ex Medical tended Branch release 12 hr TAKE 1 CAPSULE BY MOUTH EVERY 12 HOURS tolterodine Yes tolterodin Univers [place] 4 mg 24 2-25 e ER 4 mg ity of hr capsule 14:56: capsule,ex [place] 53 tended Medical release 24 Branch hr TAKE 1 CAPSULE BY MOUTH EVERY DAY atorvastati Yes atorvastat Univers n 10 mg 2-25 in 10 mg ity of tablet 14:56: tablet [place] 53 TAKE 1 Medical TABLET BY Branch MOUTH DAILY IN EVENING WITH MEAL nitrofurant Yes 100mg Take 100 U nivers oin 100 mg 2-17 mg by ity of capsule 00:00: mouth 2 [place] 00 (two) Medical times Branch daily. nitrofurant 0 Yes 100mg Take 100 U nivers oin 100 mg 2-17 mg by ity of capsule 00:00: mouth 2 [place] 00 (two) Medical times Branch daily. nitrofurant Yes 100mg Take 100 U nivers oin 100 mg 2-17 mg by ity of capsule 00:00: mouth [place] (two) Medical times Branch daily. nitrofurant 2022-0 Yes 100mg Take 100 U nivers oin 100 mg 2-17 mg by ity of capsule 00:00: mouth (two) Medical times Branch daily. nitrofurant 2022-0 Yes 100mg Take 100 U nivers oin 100 mg 2-17 mg by ity of capsule 00:00: mouth [place] (two) Medical times Branch daily. nitrofurant 2022-0 Yes 100mg Take 100 U nivers oin 100 mg 2-17 mg by ity of capsule 00:00: mouth [place] (two) Medical times Branch daily. nitrofurant 2022-0 Yes 100mg Take 100 U nivers oin 100 mg 2-17 mg by ity of capsule 00:00: mouth [place] (two) Medical times Branch daily. nitrofurant 2022-0 Yes 100mg Take 100 U nivers oin 100 mg 2-17 mg by ity of capsule 00:00: mouth [place] (two) Medical times Branch daily. nitrofurant 2022-0 Yes 100mg Take 100 U nivers oin 100 mg 2-17 mg by ity of capsule 00:00: mouth [place] (two) Medical times Branch daily. nitrofurant 2022-0 Yes 100mg Take 100 U nivers oin 100 mg 2-17 mg by ity of capsule 00:00: mouth [place] (two) Medical times Branch daily. gabapentin 2022-0 Yes 300mg Take 300 Un jack 300 mg 1-20 mg by ity of capsule 00:00: mouth at [place] [address] bedtime. Medical Branch gabapentin 2022-0 Yes 300mg Take 300 Un jack 300 mg 1-20 mg by ity of capsule 00:00: mouth at [place] [address] bedtime. Medical Branch gabapentin 2022-0 Yes 300mg Take 300 Un jack 300 mg 1-20 mg by ity of capsule 00:00: mouth at [place] [address] bedtime. Medical Branch gabapentin 2022-0 Yes 300mg Take 300 Un jack 300 mg 1-20 mg by ity of capsule 00:00: mouth at [place] [address] bedtime. Medical Branch gabapentin 2022-0 Yes 300mg Take 300 Un jack 300 mg 1-20 mg by ity of capsule 00:00: mouth at [place] [address] bedtime. Medical Branch gabapentin 2022-0 Yes 300mg Take 300 Un jack 300 mg 1-20 mg by ity of capsule 00:00: mouth at [place] [address] bedtime. Medical Branch gabapentin 2022-0 Yes 300mg Take 300 Un jack 300 mg 1-20 mg by ity of capsule 00:00: mouth at [place] [address] bedtime. Medical Branch gabapentin 2022-0 Yes 300mg Take 300 Un jack 300 mg 1-20 mg by ity of capsule 00:00: mouth at [place] [address] bedtime. Medical Branch gabapentin 2022-0 Yes 300mg Take 300 Un jack 300 mg 1-20 mg by ity of capsule 00:00: mouth at [place] [address] bedtime. Medical Branch gabapentin 2022-0 Yes 300mg Take 300 Un jack 300 mg 1-20 mg by ity of capsule 00:00: mouth at [place] [address] bedtime. Medical Branch amLODIPine 2022-0 Yes 5mg Take 5 mg Un jack 5 mg tablet 1-06 by mouth ity of 00:00: every [place] [address] morning. Medical Branch amLODIPine 2022-0 Yes 5mg Take 5 mg Un jack 5 mg tablet 1-06 by mouth ity of 00:00: every [place] [address] morning. Medical Branch amLODIPine 2022-0 Yes 5mg Take 5 mg Un jack 5 mg tablet 1-06 by mouth ity of 00:00: every [place] [address] morning. Medical Branch amLODIPine 2022-0 Yes 5mg Take 5 mg Un jack 5 mg tablet 1-06 by mouth ity of 00:00: every [place] [address] morning. Medical Branch amLODIPine 2022-0 Yes 5mg Take 5 mg Un jack 5 mg tablet 1-06 by mouth ity of 00:00: every [place] [address] morning. Medical Branch amLODIPine 2022-0 Yes 5mg Take 5 mg Un jack 5 mg tablet 1-06 by mouth ity of 00:00: every [place] [address] morning. Medical Branch amLODIPine 2022-0 Yes 5mg Take 5 mg Un jack 5 mg tablet 1-06 by mouth ity of 00:00: every [place] [address] morning. Medical Branch amLODIPine 2022-0 Yes 5mg Take 5 mg Un jack 5 mg tablet 1-06 by mouth ity of 00:00: every [place] [address] morning. Medical Branch amLODIPine 2022-0 Yes 5mg Take 5 mg Un jack 5 mg tablet 06 by mouth ity of 00:00: every [place] morning. Medical Branch amLODIPine 0 Yes 5mg Take 5 mg Un jack 5 mg tablet 06 by mouth ity of 00:00: every [place] morning. Medical Branch levothyroxi 2020-04 Yes 75ug Take 75 Uni vers ne 75 mcg 2-31 mcg by ity of tablet 00:00: mouth. [facility] Branch levothyroxi 2020-04 Yes 75ug Take 75 Uni vers ne 75 mcg 2-31 mcg by ity of tablet 00:00: mouth. [facility] Branch levothyroxi 2020-04 Yes 75ug Take 75 Uni vers ne 75 mcg 2-31 mcg by ity of tablet 00:00: mouth. [facility] levothyroxi 2020-04 Yes 75ug Take 75 Uni vers ne 75 mcg 2-31 mcg by ity of tablet 00:00: mouth. [place] [facility] levothyroxi 2020-04 Yes 75ug Take 75 Uni vers ne 75 mcg 2-31 mcg by ity of tablet 00:00: mouth. [place] [facility] levothyroxi 2020-04 Yes 75ug Take 75 Uni vers ne 75 mcg 2-31 mcg by ity of tablet 00:00: mouth. [place] [facility] levothyroxi 2020-04 Yes 75ug Take 75 Uni vers ne 75 mcg 2-31 mcg by ity of tablet 00:00: mouth. [place] [facility] levothyroxi 2020-04 Yes 75ug Take 75 Uni vers ne 75 mcg 2-31 mcg by ity of tablet 00:00: mouth. [facility] levothyroxi 2020-04 Yes 75ug Take 75 Uni vers ne 75 mcg 2-31 mcg by ity of tablet 00:00: mouth. [place] [facility] levothyroxi 2020-04 Yes 75ug Take 75 Uni vers ne 75 mcg 2-31 mcg by ity of tablet 00:00: mouth. [place] [facility] Branch metoprolol 2020-04 Yes TAKE 1 Unive rs succinate 2-30 TABLET BY ity o f XL 50 mg 24 00:00: MOUTH [place] tablet 00 TWICE A Medical DAY AT 6AM Branch AND 6PM metoprolol 2020-04 Yes TAKE 1 Unive rs succinate 2-30 TABLET BY ity o f XL 50 mg 24 00:00: MOUTH [place] hr tablet 00 TWICE A Medical DAY AT [address] [place] [address] AND 6PM metoprolol 2020-04 Yes TAKE 1 Unive rs succinate 2-30 TABLET BY ity o f XL 50 mg 24 00:00: MOUTH [place] hr tablet 00 TWICE A Medical DAY AT [address] [place] [address] AND 6PM metoprolol 2020-04 Yes TAKE 1 Unive rs succinate 2-30 TABLET BY ity o f XL 50 mg 24 00:00: MOUTH [place] hr tablet 00 TWICE A Medical DAY AT [address] [place] [address] AND 6PM metoprolol 2020-04 Yes TAKE 1 Unive rs succinate 2-30 TABLET BY ity o f XL 50 mg 24 00:00: MOUTH [place] hr tablet 00 TWICE A Medical DAY AT [address] [place] [address] AND 6PM metoprolol 2020-04 Yes TAKE 1 Unive rs succinate 2-30 TABLET BY ity o f XL 50 mg 24 00:00: MOUTH [place] hr tablet 00 TWICE A Medical DAY AT [address] [place] [address] AND 6PM metoprolol 2020-04 Yes TAKE 1 Unive rs succinate 2-30 TABLET BY ity o f XL 50 mg 24 00:00: MOUTH [place] hr tablet 00 TWICE A Medical DAY AT [address] [place] [address] AND 6PM metoprolol 2020-04 Yes TAKE 1 Unive rs succinate 2-30 TABLET BY ity o f XL 50 mg 24 00:00: MOUTH [place] hr tablet 00 TWICE A Medical DAY AT [address] [place] [address] AND 6PM metoprolol 2020-04 Yes TAKE 1 Unive rs succinate 2-30 TABLET BY ity o f XL 50 mg 24 00:00: MOUTH [place] hr tablet 00 TWICE A Medical DAY AT [address] [place] [address] AND 6PM metoprolol 2020-04 Yes TAKE 1 Unive rs succinate 2-30 TABLET BY ity o f XL 50 mg 24 00:00: MOUTH [place] hr tablet 00 TWICE A Medical DAY AT [address] [place] [address] AND 6PM gabapentin 2019-0 Yes 100 mg = 1 M [place] 100 MG Oral 7-17 cap, PO, l Capsule 14:53: Bedtime, # [place] 00 90 cap, 1 Refill(s), Pharmacy: [facility] #[id number] gabapentin 2019-0 Yes 100 mg = 1 M [place] 100 MG Oral 7-17 cap, PO, l Capsule 14:53: Bedtime, # [place] 00 90 cap, 1 Refill(s), Pharmacy: [facility] #[id number] gabapentin 2019-0 Yes 100 mg = 1 M [place] 100 MG Oral 7-17 cap, PO, l Capsule 14:53: Bedtime, # [place] 90 cap, 1 Refill(s), Pharmacy: [facility] #[id number] sulfamethox sulfamethox No sulfametho [facility] azole 800 azole 800 xazole 800 Medical mg-trimetho mg-trimetho mg-trimeth prim 160 mg prim 160 mg oprim 160 tablet TAKE tablet TAKE mg tablet 1 TABLET BY 1 TABLET BY TAKE 1 MOUTH EVERY MOUTH EVERY TABLET BY 12 HOURS 12 HOURS MOUTH FOR 3 DAYS FOR 3 DAYS EVERY 12 HOURS FOR 3 DAYS tolterodine tolterodine No tolterodin [facility] ER 4 mg ER 4 mg e ER 4 mg Medi francisca capsule,ext capsule,ext capsule,ex ended ended tended release 24 release 24 release 24 hr TAKE 1 hr TAKE 1 hr TAKE 1 CAPSULE BY CAPSULE BY CAPSULE BY MOUTH EVERY MOUTH EVERY MOUTH DAY DAY EVERY DAY Zylet 0.3 Zylet 0.3 No Zylet 0.3 [facility] %-0.5 % eye %-0.5 % eye %-0.5 % Medical drops,suspe drops,suspe eye nsion nsion drops,susp INSTILL 1 INSTILL 1 ension DROP INTO DROP INTO INSTILL 1 LEFT EYE 3 LEFT EYE 3 DROP INTO TIMES A DAY TIMES A DAY LEFT EYE 3 FOR 7 DAYS FOR 7 DAYS TIMES A DAY FOR 7 DAYS acetaminoph acetaminoph No acetaminop [facility] en 300 en 300 hen 300 Medical mg-codeine mg-codeine mg-codeine 30 mg 30 mg 30 mg tablet TAKE tablet TAKE tablet 1 TABLET BY 1 TABLET BY TAKE 1 MOUTH TWICE MOUTH TWICE TABLET BY A DAY A DAY MOUTH TWICE A DAY albuterol albuterol No albuterol [facility] sulfate HFA sulfate HFA sulfate Medical 90 90 HFA 90 mcg/actuati mcg/actuati mcg/actuat on aerosol on aerosol ion inhaler inhaler aerosol TAKE 2 TAKE 2 inhaler PUFFS BY PUFFS BY TAKE 2 MOUTH EVERY MOUTH EVERY PUFFS BY 4 TO 6 4 TO 6 MOUTH HOURS HOURS EVERY 4 TO NEEDED NEEDED 6 HOURS NEEDED amlodipine amlodipine No amlodipine [facility] 5 mg tablet 5 mg tablet 5 mg M edical TAKE 1 TAKE 1 tablet TABLET BY TABLET BY TAKE 1 MOUTH DAILY MOUTH DAILY TABLET BY IN MORNING IN MORNING MOUTH DAILY IN MORNING atorvastati atorvastati No atorvastat [facility] n 10 mg n 10 mg in 10 mg Medic al tablet TAKE tablet TAKE tablet 1 TABLET BY 1 TABLET BY TAKE 1 MOUTH DAILY MOUTH DAILY TABLET BY IN EVENING IN EVENING MOUTH WITH MEAL WITH MEAL DAILY IN EVENING WITH MEAL B-12 B-12 No B-12 [facility] Medical Baby Baby No Baby [facility] Aspirin Aspirin Aspirin Medica l CoQ-10 CoQ-10 No CoQ-10 [facility] Medical cranberry cranberry No cranberry [facility] Medical Fish Oil Fish Oil No Fish Oil [facility] via Medical gabapentin gabapentin No gabapentin [facility] 300 mg 300 mg 300 mg Medical capsule capsule capsule TAKE 1 TAKE 1 TAKE 1 CAPSULE BY CAPSULE BY CAPSULE BY MOUTH MOUTH MOUTH EVERYDAY AT EVERYDAY AT EVERYDAY BEDTIME BEDTIME AT BEDTIME Glucosamine Glucosamine No Glucosamin [facility] e Medical levothyroxi levothyroxi No levothyrox [facility] ne 75 mcg ne 75 mcg ine 75 mcg Medical tablet TAKE tablet TAKE tablet 1 TABLET BY 1 TABLET BY TAKE 1 MOUTH EVERY MOUTH EVERY TABLET BY DAY DAY MOUTH EVERY DAY metoprolol metoprolol No metoprolol [facility] succinate succinate succinate Medical ER 50 mg ER 50 mg ER 50 mg tablet,exte tablet,exte tablet,ext nded nded ended release 24 release 24 release 24 hr TAKE 1 hr TAKE 1 hr TAKE 1 TABLET BY TABLET BY TABLET BY MOUTH TWICE MOUTH TWICE MOUTH A DAY AT A DAY AT TWICE A 6AM AND 6PM 6AM AND 6PM DAY AT 6AM AND 6PM ofloxacin ofloxacin No ofloxacin [facility] 0.3 % eye 0.3 % eye 0.3 % eye Medical drops drops drops PLEASE SEE PLEASE SEE PLEASE SEE ATTACHED ATTACHED ATTACHED FOR FOR FOR DETAILED DETAILED DETAILED DIRECTIONS DIRECTIONS DIRECTIONS One Daily One Daily No One Daily [facility] Complete Complete Complete Med ical prednisolon prednisolon No prednisolo [facility] e acetate 1 e acetate 1 ne acetate Medical % eye % eye 1 % eye drops,suspe drops,suspe drops,susp nsion nsion ension PLEASE SEE PLEASE SEE PLEASE SEE ATTACHED ATTACHED ATTACHED FOR FOR FOR DETAILED DETAILED DETAILED DIRECTIONS DIRECTIONS DIRECTIONS Premarin Premarin No Premarin [place] via 0.625 0.625 0.625 Medical mg/gram mg/gram mg/gram vaginal vaginal vaginal cream cream cream INSERT 1/2 INSERT 1/2 INSERT 1/2 AN AN AN APPLICATOR APPLICATOR APPLICATOR FULL FULL FULL VAGINALLY VAGINALLY VAGINALLY EVERY 72 EVERY 72 EVERY 72 HOURS HOURS HOURS PreserVisio PreserVisio No PreserVisi [facility] n AREDS n AREDS on AREDS Medic al propafenone propafenone No propafenon [facility] ER 325 mg ER 325 mg e ER 325 M edical capsule,ext capsule,ext mg ended ended capsule,ex release 12 release 12 tended hr TAKE 1 hr TAKE 1 release 12 CAPSULE BY CAPSULE BY hr TAKE 1 MOUTH EVERY MOUTH EVERY CAPSULE BY 12 HOURS 12 HOURS MOUTH EVERY 12 HOURS tolterodine tolterodine No tolterodin [facility] ER 4 mg ER 4 mg e ER 4 mg Medi francisca capsule,ext capsule,ext capsule,ex ended ended tended release 24 release 24 release 24 hr TAKE 1 hr TAKE 1 hr TAKE 1 CAPSULE BY CAPSULE BY CAPSULE BY MOUTH EVERY MOUTH EVERY MOUTH DAY DAY EVERY DAY acetaminoph acetaminoph No acetaminop [facility] en 300 en 300 hen 300 Medical mg-codeine mg-codeine mg-codeine 30 mg 30 mg 30 mg tablet TAKE tablet TAKE tablet 1 TABLET BY 1 TABLET BY TAKE 1 MOUTH TWICE MOUTH TWICE TABLET BY A DAY A DAY MOUTH TWICE A DAY albuterol albuterol No albuterol [facility] sulfate HFA sulfate HFA sulfate Medical 90 90 HFA 90 mcg/actuati mcg/actuati mcg/actuat on aerosol on aerosol ion inhaler inhaler aerosol TAKE 2 TAKE 2 inhaler PUFFS BY PUFFS BY TAKE 2 MOUTH EVERY MOUTH EVERY PUFFS BY 4 TO 6 4 TO 6 MOUTH HOURS HOURS EVERY 4 TO NEEDED NEEDED 6 HOURS NEEDED amlodipine amlodipine No amlodipine [facility] 5 mg tablet 5 mg tablet 5 mg M edical TAKE 1 TAKE 1 tablet TABLET BY TABLET BY TAKE 1 MOUTH DAILY MOUTH DAILY TABLET BY IN MORNING IN MORNING MOUTH DAILY IN MORNING atorvastati atorvastati No atorvastat [facility] n 10 mg n 10 mg in 10 mg Medic al tablet TAKE tablet TAKE tablet 1 TABLET BY 1 TABLET BY TAKE 1 MOUTH DAILY MOUTH DAILY TABLET BY IN EVENING IN EVENING MOUTH WITH MEAL WITH MEAL DAILY IN EVENING WITH MEAL B-12 B-12 No B-12 [facility] Medical Baby Baby No Baby [facility] Aspirin Aspirin Aspirin Medica l BinaxNOW BinaxNOW No BinaxNOW [facility] via COVID-19 Ag COVID-19 Ag COVID-19 Medical Self Test Self Test Ag Self kit USE kit USE Test kit DIRECTED DIRECTED USE DIRECTED ciprofloxac ciprofloxac No ciprofloxa [facility] in 250 mg in 250 mg nica 250 mg Medical tablet TAKE tablet TAKE tablet 1 TABLET BY 1 TABLET BY TAKE 1 MOUTH EVERY MOUTH EVERY TABLET BY 12 HOURS 12 HOURS MOUTH FOR 7 DAYS FOR 7 DAYS EVERY 12 HOURS FOR 7 DAYS CoQ-10 CoQ-10 No CoQ-10 [facility] Medical cranberry cranberry No cranberry [facility] Medical Fish Oil Fish Oil No Fish Oil [facility] via Medical gabapentin gabapentin No gabapentin [facility] 300 mg 300 mg 300 mg Medical capsule capsule capsule TAKE 1 TAKE 1 TAKE 1 CAPSULE BY CAPSULE BY CAPSULE BY MOUTH MOUTH MOUTH EVERYDAY AT EVERYDAY AT EVERYDAY BEDTIME BEDTIME AT BEDTIME Glucosamine Glucosamine No Glucosamin [facility] e Medical levothyroxi levothyroxi No levothyrox [facility] ne 75 mcg ne 75 mcg ine 75 mcg Medical tablet TAKE tablet TAKE tablet 1 TABLET BY 1 TABLET BY TAKE 1 MOUTH EVERY MOUTH EVERY TABLET BY DAY DAY MOUTH EVERY DAY metoprolol metoprolol No metoprolol [facility] succinate succinate succinate Medical ER 50 mg ER 50 mg ER 50 mg tablet,exte tablet,exte tablet,ext nded nded ended release 24 release 24 release 24 hr TAKE 1 hr TAKE 1 hr TAKE 1 TABLET BY TABLET BY TABLET BY MOUTH TWICE MOUTH TWICE MOUTH A DAY AT A DAY AT TWICE A 6AM AND 6PM 6AM AND 6PM DAY AT 6AM AND 6PM nitrofurant nitrofurant No nitrofuran [facility] oin oin toin Medical macrocrysta macrocrysta macrocryst l 100 mg l 100 mg al 100 mg capsule capsule capsule TAKE 1 TAKE 1 TAKE 1 CAPSULE BY CAPSULE BY CAPSULE BY MOUTH TWICE MOUTH TWICE MOUTH A DAY A DAY TWICE A DAY ofloxacin ofloxacin No ofloxacin [facility] 0.3 % eye 0.3 % eye 0.3 % eye Medical drops drops drops PLEASE SEE PLEASE SEE PLEASE SEE ATTACHED ATTACHED ATTACHED FOR FOR FOR DETAILED DETAILED DETAILED DIRECTIONS DIRECTIONS DIRECTIONS One Daily One Daily No One Daily [facility] Complete Complete Complete Med ical prednisolon prednisolon No prednisolo [facility] e acetate 1 e acetate 1 ne acetate Medical % eye % eye 1 % eye drops,suspe drops,suspe drops,susp nsion nsion ension PLEASE SEE PLEASE SEE PLEASE SEE ATTACHED ATTACHED ATTACHED FOR FOR FOR DETAILED DETAILED DETAILED DIRECTIONS DIRECTIONS DIRECTIONS Premarin Premarin No Premarin [facility] via 0.625 0.625 0.625 Medical mg/gram mg/gram mg/gram vaginal vaginal vaginal cream cream cream INSERT 0.5 INSERT 0.5 INSERT 0.5 APPLICATORS APPLICATORS APPLICATOR FUL EVERY FUL EVERY SFUL EVERY 72 HOURS BY 72 HOURS BY 72 HOURS VAGINAL VAGINAL BY VAGINAL ROUTE. ROUTE. ROUTE. PreserVisio PreserVisio No PreserVisi [facility] n AREDS n AREDS on AREDS Medic al Prolensa Prolensa No Prolensa [facility] via 0.07 % eye 0.07 % eye 0.07 % eye Medical drops drops drops INSTILL 1 INSTILL 1 INSTILL 1 DROP INTO DROP INTO DROP INTO LEFT EYE LEFT EYE LEFT EYE EVERY DAY EVERY DAY EVERY DAY FOR 2 FOR 2 FOR 2 WEEKS. WEEKS. WEEKS. START AFTER START AFTER START SURGERY SURGERY AFTER SURGERY propafenone propafenone No propafenon [facility] ER 325 mg ER 325 mg e ER 325 M edical capsule,ext capsule,ext mg ended ended capsule,ex release 12 release 12 tended hr TAKE 1 hr TAKE 1 release 12 CAPSULE BY CAPSULE BY hr TAKE 1 MOUTH EVERY MOUTH EVERY CAPSULE BY 12 HOURS 12 HOURS MOUTH EVERY 12 HOURS Immunizations Ordered Filled Immunization Date Status Comments [facility] e Immunization Name Name SARS-COV-2 COVID-19 2021-01-09 Completed Unive rsity of PFIZER VACCINE 00:00:00 [facility] SARS-COV-2 COVID-19 2021-01-09 Completed Unive rsity of PFIZER VACCINE 00:00:00 [facility] SARS-COV-2 COVID-19 2021-01-09 Completed Unive rsity of PFIZER VACCINE 00:00:00 [facility] SARS-COV-2 COVID-19 2021-01-09 Completed Unive rsity of PFIZER VACCINE 00:00:00 [facility] SARS-COV-2 COVID-19 2020-06-17 Completed Unive rsity of PFIZER VACCINE 00:00:00 [facility] SARS-COV-2 COVID-19 2020-06-17 Completed Unive rsity of PFIZER VACCINE 00:00:00 [facility] SARS-COV-2 COVID-19 2020-06-17 Completed Unive rsity of PFIZER VACCINE 00:00:00 [facility] SARS-COV-2 COVID-19 2020-06-17 Completed Unive rsity of PFIZER VACCINE 00:00:00 [facility] SARS-COV-2 COVID-19 2020-06-17 Completed Unive rsity of PFIZER VACCINE 00:00:00 [facility] SARS-COV-2 COVID-19 2020-06-17 Completed Unive rsity of PFIZER VACCINE 00:00:00 [facility] SARS-COV-2 COVID-19 2020-06-17 Completed Unive rsity of PFIZER VACCINE 00:00:00 [facility] SARS-COV-2 COVID-19 2020-06-17 Completed Unive rsity of PFIZER VACCINE 00:00:00 [facility] SARS-COV-2 COVID-19 2020-06-17 Completed Unive rsity of PFIZER VACCINE 00:00:00 [facility] SARS-COV-2 COVID-19 2020-06-17 Completed Unive rsity of PFIZER VACCINE 00:00:00 [facility] SARS-COV-2 COVID-19 2020-06-17 Completed Unive rsity of PFIZER VACCINE 00:00:00 [facility] SARS-COV-2 COVID-19 2020-06-17 Completed Unive rsity of PFIZER VACCINE 00:00:00 [facility] SARS-COV-2 COVID-19 2020-06-17 Completed Unive rsity of PFIZER VACCINE 00:00:00 [facility] SARS-COV-2 COVID-19 2020-05-27 Completed Unive rsity of PFIZER VACCINE 00:00:00 [facility] SARS-COV-2 COVID-19 2020-05-27 Completed Unive rsity of PFIZER VACCINE 00:00:00 [facility] SARS-COV-2 COVID-19 2020-05-27 Completed Unive rsity of PFIZER VACCINE 00:00:00 [facility] SARS-COV-2 COVID-19 2020-05-27 Completed Unive rsity of PFIZER VACCINE 00:00:00 [facility] SARS-COV-2 COVID-19 2020-05-27 Completed Unive rsity of PFIZER VACCINE 00:00:00 [facility] SARS-COV-2 COVID-19 2020-05-27 Completed Unive rsity of PFIZER VACCINE 00:00:00 [facility] SARS-COV-2 COVID-19 2020-05-27 Completed Unive rsity of PFIZER VACCINE 00:00:00 [facility] SARS-COV-2 COVID-19 2020-05-27 Completed Unive rsity of PFIZER VACCINE 00:00:00 [facility] SARS-COV-2 COVID-19 2020-05-27 Completed Unive rsity of PFIZER VACCINE 00:00:00 [facility] SARS-COV-2 COVID-19 2020-05-27 Completed Unive rsity of PFIZER VACCINE 00:00:00 [facility] SARS-COV-2 COVID-19 2020-05-27 Completed Unive rsity of PFIZER VACCINE 00:00:00 [facility] SARS-COV-2 COVID-19 2020-05-27 Completed Unive rsity of PFIZER VACCINE 00:00:00 [facility] SARS-COV-2 COVID-19 2020-05-27 Completed Unive rsity of PFIZER VACCINE 00:00:00 [facility] influenza, influenza, 2019 Completed [facility] unspecified unspecified 00:00:00 formulation formulation influenza, influenza, 2019 Completed [facility] unspecified unspecified 00:00:00 formulation formulation influenza, influenza, 2017-01-03 Completed [facility] injectable, injectable, 00:00:00 quadrivalent quadrivalent influenza, influenza, 2017-01-03 Completed [facility] injectable, injectable, 00:00:00 quadrivalent quadrivalent Vital Signs Vital Name Observation Time Observation Value Comments Source BP Diastolic 2021-12-11 00:00:00 68 mm[Hg] Gavin cisneros Height 2021-12-11 00:00:00 68 [in_i] Gavin cisneros BMI (Body Mass 2021-12-11 00:00:00 24.2 kg/m2 [facility] Index) BP Systolic 2021-12-11 00:00:00 152 mm[Hg] Gavin cisneros Body Weight 2021-12-11 00:00:00 159 [lb_av] Gavin cisneros Systolic blood 2021-09-19 19:37:00 153 mm[Hg] Univer sity of pressure [facility] Diastolic blood 2021-09-19 19:37:00 76 mm[Hg] Unive [facility]ity of pressure [facility] Heart rate 2021-09-19 19:37:00 76 /min [facility] Body temperature 2021-09-19 19:37:00 36.44 Ashley [facility] Respiratory rate 2021-09-19 19:37:00 18 /min [facility] Body weight 2021-09-19 19:37:00 68.04 kg [facility] BMI 2021-09-19 19:37:00 22.81 kg/m2 [facility] Oxygen saturation in 2021-09-19 19:37:00 95 /min University of Arterial blood by [facility] Pulse oximetry Branch BP Diastolic 2021-09-18 00:00:00 59 mm[Hg] Gavin cisneros Height 2021-09-18 00:00:00 68 [in_i] Gavin cisneros BMI (Body Mass 2021-09-18 00:00:00 24.4 kg/m2 [facility] Index) BP Systolic 2021-09-18 00:00:00 143 mm[Hg] Gavin cisneros Body Weight 2021-09-18 00:00:00 160.2 [lb_av] [facility] Heart rate 2021-06-25 16:36:00 64 /min [facility] Respiratory rate 2021-06-25 16:36:00 17 /min [facility] [place] [facility] Alexis Oxygen saturation in 2021-06-25 16:36:00 97 /min University of Arterial blood by [facility] Pulse oximetry Branch Systolic blood 2021-06-25 16:35:00 161 mm[Hg] Univer sity of pressure [facility] Diastolic blood 2021-06-25 16:35:00 54 mm[Hg] Unive rsity of pressure [facility] Body temperature 2021-06-25 16:19:00 36.61 Ashley [facility] Body height 2021-06-24 14:30:00 172.7 cm [facility] Body weight 2021-06-24 14:30:00 68.04 kg [facility] BMI 2021-06-24 14:30:00 22.81 kg/m2 [facility] Systolic blood 2021-06-25 14:47:00 167 mm[Hg] Univer sity of pressure [facility] Diastolic blood 2021-06-25 14:47:00 58 mm[Hg] Unive rsity of pressure [facility] Heart rate 2021-06-25 14:28:00 65 /min [facility] Body temperature 2021-06-25 14:18:00 36.5 Ashley [facility] Respiratory rate 2021-06-25 14:18:00 15 /min [facility] Oxygen saturation in 2021-06-25 14:18:00 100 /min University of Arterial blood by [place] [employer] francisca Pulse oximetry Branch Body height 2021-06-24 14:30:00 172.7 cm [facility] Body weight 2021-06-24 14:30:00 68.04 kg [facility] BMI 2021-06-24 14:30:00 22.81 kg/m2 [facility] Systolic blood 2021-06-04 17:24:00 158 mm[Hg] Univer [facility]ity of pressure [facility] Diastolic blood 2021-06-04 17:24:00 40 mm[Hg] Unive rsity of pressure [facility] Heart rate 2021-06-04 17:24:00 70 /min [facility] Respiratory rate 2021-06-04 17:24:00 18 /min [facility] Oxygen saturation in 2021-06-04 17:24:00 97 /min University of Arterial blood by [place] [employer] francisca Pulse oximetry Branch Body temperature 2021-06-04 17:10:00 36.11 Ashley [facility] Body height 2021-05-28 15:44:00 172.7 cm [facility] Body weight 2021-05-28 15:44:00 72.6 kg [facility] BMI 2021-05-28 15:44:00 24.34 kg/m2 [facility] Systolic blood 2021-06-04 14:34:00 146 mm[Hg] Univer [facility]ity of pressure [facility] Diastolic blood 2021-06-04 14:34:00 67 mm[Hg] Unive rsity of pressure [facility] Heart rate 2021-06-04 14:34:00 71 /min [facility] Body temperature 2021-06-04 14:34:[address] [facility] 2021-06-04 14:34:00 16 /min [facility] Oxygen saturation in 2021-06-04 14:34:00 100 /min University of Arterial blood by [facility] Pulse oximetry Branch Body height 2021-05-28 15:44:00 172.7 cm [facility] Body weight 2021-05-28 15:44:00 72.6 kg [facility] BMI 2021-05-28 15:44:00 24.34 kg/m2 [facility] Systolic blood 2022-09-08 22:00:00 141 mm[Hg] [facility] pressure Diastolic blood 2022-09-08 22:00:00 68 mm[Hg] [facility] pressure Heart rate 2022-09-08 22:00:00 67 /min [facility] Respiratory rate 2022-09-08 22:00:00 16 /min [facility] Oxygen saturation in 2022-09-08 22:00:00 99 /min [facility] Arterial blood by Pulse oximetry Body temperature 2022-09-08 20:26:00 36.78 Ashley [facility] Body height 2022-09-08 18:18:00 172.7 cm [facility] Body weight 2022-09-08 18:18:00 72.122 kg [facility] BMI 2022-09-08 18:18:00 24.18 kg/m2 [facility] BMI Calculated 2018-10-19 14:19:00 Gunnar al [place] Weight 2018-10-19 14:19:00 [facility] Height 2018-10-19 14:19:00 172.72 cm [facility] Respitory Rate 2018-10-19 14:19:00 Gunnar zarco Osvaldo Systolic (mm Hg) 2018-10-19 14:19:00 Jose friedman Osvaldo Diastolic (mm Hg) 2018-10-19 14:19:00 Mem orial Osvaldo Heart Rate 2018-10-19 14:19:00 [facility] Procedures Procedure Date / Time Performing Source Performed Clinician EP PPI GENERATOR CHANGE 2022-09-08 [facility] 20:07:06 TYPE AND SCREEN [facility] 16:[facility] PRE/POST OP 2022-09-08 [facility] 15:55:37 PROTHROMBIN TIME WITH INR 2022-09-03 [facility] 16:22:00 MAGNESIUM LEVEL 2022-09-03 [facility] 16:22:00 CBC WITH PLATELET AND 2022-09-03 [facility] DIFFERENTIAL 16:22:00 COMPREHENSIVE METABOLIC PANEL 2022-09-03 [facility] 16:22:00 ESTIMATED GFR 2022-09-03 [facility] 16:22:00 CONSENT/REFUSAL FOR DIAGNOSIS 2021-09-19 Doctor Unassigned, [facility] AND TREATMENT 19:33:15 [facility] NOTICE OF PRIVACY PRACTICES 2021-09-19 Doctor Unassigned, [facility] 19:32:28 [facility] MAMMO, screening, digital, 2021-09-18 [facility] bilateral 00:00:00 PHACOEMULSIFICATION OF 2021-06-25 Joaquin Tomas [facility] CATARACT WITH INTRAOCULAR 15:43:00 Medica Branch LENS IMPLANT ASSIGNMENT OF BENEFITS 2021-06-23 Doctor Unassigned, [facility] 15:02:45 [facility] PHACOEMULSIFICATION OF 2021-06-04 Joaquin Tomas [facility] CATARACT WITH INTRAOCULAR 16:30:00 Medica l Branch LENS IMPLANT PATIENT QUESTIONNAIRE 2021-06-04 Doctor Unassigned, [facility] 06:01:00 [facility] ASSIGNMENT OF BENEFITS 2021-05-26 Doctor Unassigned, [facility] 16:55:51 [facility] Hysterectomy (Ovaries Remain) [facility] Plan of Care Planned Activity Planned Date Details Comments Source Future Scheduled 2022-09-18 SHINGLES VACCINES (1 of Shinto Test 07:56:44 2) [code = SHINGLES Hospital VACCINES (1 of 2)] Future Scheduled 2022-09-18 65+ PNEUMOCOCC[address]i [facility] Test 07:56:44 VACCINE (1 - PCV) [code Hosp ital = 65+ PNEUMOCOCCAL VACCINE (1 - PCV)] Future Scheduled 2022-09-18 COVID-19 VACCINE (5 - Me thodist Test 07:56:44 Pfizer series) [code = Hospi maria ines COVID-19 VACCINE (5 - Pfizer series)] Future Scheduled 2022-09-18 INFLUENZA VACCINE [code Shinto Test 07:56:44 = INFLUENZA VACCINE] Hospita l Diagnostic Test 2021-12-11 Cytomegalovirus Ab [facility] Pending 00:00:00 [Titer] in Serum or Plasma by Latex agglutination [code = 5121-9] Diagnostic Test 2021-12-11 Weight of 24 hour [facility] Pending 00:00:00 Specimen [code = 3153-4] Future Appointment 2023-09-29 Jenny Shine, [address] [facility] 00:00:00 [place] [address] Encounters Start End Encounter Admission Attending Care Care Encounter Source Date/Time Date/Time Type Type Clinicians Facility Department ID 2021-05-22 Emergency [facility] [id number] Univers 08:48:27 [facility] 2021-05-19 Outpatient R THOM [facility] OPH [id number] Univers 10:31:19 JOAQUIN [facility] 2022-09-08 2022-09-08 Hospital Fidel, 1.2.840.1 [id number] Methodi 10:26:00 17:26:00 Encounter Nadim 38995.1.[address] 3.430.2.7 Hospit a .3.061187 l .8 2022-09-08 2022-09-08 Anesthesia Monson, 1.2.840.1 [id number] Methodi 13:48:00 15:27:00 Event Olivia 50125.1.[address] [place] 3.430.2.7 Hospi ta .3.445389 l .8 2022-09-08 2022-09-08 Surgery Fidel, 1.2.840.1 [id number] Methodi 13:00:00 14:50:[address] 3.430.2.7 Hospit a .3.648859 l .8 2022-09-08 2022-09-08 Travel 1.2.840.1 1.2.059.821 [id number] Methodi 00:00:00 00:00:[address] 3.430.2.7 0.2.7.3.698 Ho spita .3.630366 084.8 l .8 2022-09-08 2022-09-08 Outpatient [facility] [id number] [place] 00:00:00 00:00:[address] 2022-09-07 2022-09-07 Travel 1.2.840.1 1.2.977.429 [id number] Methodi 00:00:00 00:00:[address] 3.430.2.7 0.2.7.3.698 Ho spita .3.484462 084.8 l .8 2022-09-03 2022-09-03 [facility] Fidel, 1.2.840.1 [id number] Methodi 11:00:00 11:05:[address] 3.430.2.7 Hospit a .3.463357 l .8 2022-09-03 2022-09-03 Outpatient [facility] [id number] [place] 00:00:00 00:00:00 NADIM [address] 2022-09-03 2022-09-03 Travel 1.2.840.1 1.2.560.736 [id number] Methodi 00:00:00 00:00:[address] 3.430.2.7 0.2.7.3.698 Ho spita .3.544886 084.8 l .8 2022-08-24 2022-08-24 Community Fidel, 1.2.840.1 [id number] Methodi 00:00:00 00:00:00 Orders Nadim 50214.1.[address] 3.430.2.7 Hospit a .3.125337 l .8 2022-08-24 2022-08-24 Steven Thompson 1.2.840.1 [id number] Methodi 00:00:00 00:00:[address] 3.430.2.7 Hospit a .3.909277 l .8 2022-01-22 2022-01-22 Outpatient GC_SWHAOMC_ PRIV PRIV 506 [facility] 00:00:00 00:00:00 Black_D [id number] Medica l 2021-12-25 2021-12-25 Outpatient GC_SWHAOMC_ PRIV PRIV 506 [facility] 00:00:00 00:00:00 Black_D [id number] Medica l 2021-12-15 2021-12-15 Outpatient GC_SWHAOM[facility]_ PRIV PRIV 506 [facility] 00:00:00 00:00:00 Black_D [id number] Medica l 2021-12-11 2021-12-11 Outpatient Jenny Shine PRIV PRIV [id number] 00:00:00 00:00:00 Ramirez [id number] 2021-12-11 2021-12-11 Jenny [facility]IV [facility] 00:00:00 00:00:00 [facility] MD Rl: GC_SWHAOMC_ [address] [facility], [place] [address] , Ph. 2021-12-09 2021-12-09 Outpatient GC_SWHAOMC_ PRIV PRIV 506 [facility] 00:00:00 00:00:00 Black_D [id number] Medica l 2021-11-06 2021-11-06 Outpatient GC_SWHAOM[facility]_ PRIV PRIV 506 [facility] 00:00:00 00:00:00 Black_D [id number] Medica l 2021-10-09 2021-10-09 Outpatient GC_SWHAOM[facility]_ PRIV PRIV 506 [facility] 02:57:00 02:57:00 Black_D [id number] Medica l 2021-09-29 2021-09-29 Outpatient GC_SWHAOM[facility]_ PRIV PRIV 506 [facility] 09:56:00 09:56:00 Black_D [id number] Medica l 2021-09-19 2021-09-19 Emergency X RIDDLE, [facility] ERT [id number] Univers 14:39:00 15:46:00 JENNIFEROPHER it y of [facility] 2021-09-19 2021-09-19 Emergency [place], [facility] 1.2.907.173 [id number] Univers 14:39:00 15:46:00 [place] 350.1.13.10 ity [facility] 4.2.7.2.686 [facility] [id number] [facility] 084 Branch 2021-09-19 2021-09-19 Orders Doctor JOSEF 1.2.840.114 [id number] Univers 00:00:00 00:00:00 Only Unassigned, MIKE 350.1.13.[address] [facility] 4.2.7.2.686 [facility] [id number] [facility] 009 Branch 2021-09-18 2021-09-18 Outpatient GC_SWHAOMC_ PRIV PRIV 506 [facility] 11:05:00 11:05:00 Black_D [id number] Medica l 2021-09-18 2021-09-18 Outpatient Jenny Shine PRIV PRIV [id number] 00:00:00 00:00:00 Ramirez [id number] 2021-09-18 2021-09-18 Jenny [facility]IV [facility] 16 [facility] 00:00:00 00:00:00 Ramirez [facility] - Medic haroldo Shine MD: GC_JENSC_ [address], [place] [address] , Ph. 2021-09-17 2021-09-17 Outpatient GC_SWHAOMC_ PRIV PRIV 506 [facility] 12:14:00 12:14:00 Black_D [id number] Medica l 2021-09-16 2021-09-16 Outpatient GC_SWHAOMC_ PRIV PRIV 506 [facility] 10:35:00 10:35:00 Black_D [id number] Medica l 2021-09-02 2021-09-02 Outpatient GC_SWOMC_ PRIV PRIV 506 [facility] 11:52:00 11:52:00 Black_D [id number] Medica l 2021-06-25 2021-06-25 Outpatient R [facility] OPH [id number] Univers 09:07:00 12:03:00 JOAQUIN ity [facility] 2021-06-25 2021-06-25 [facility] 1.2.061.066 [id number] Univers 09:07:00 12:03:00 Encounter [place] 350.1.13.10 ity [place] [id number] [facility] 071 Branch 2021-06-25 2021-06-25 Surgery [facility] 1.2.840.114 [id number] Univers 10:09:00 10:47:00 [place]quin [place] 350.1.13.10 it[place].2.[place] [id number] [facility] 020 Branch 2021-06-23 2021-06-23 Orders Doctor BAHENA 1.2.840.114 [id number] Univers 00:00:00 00:00:00 Only Unassigned, MIKE 350.1.13.10 ity of [place] [facility] 4.2.7.2.686 Rob as [phone] [facility] 009 Branch 2021-06-04 2021-06-04 Outpatient R [facility] OPH [id number] Univers 08:16:00 11:35:00 JOAQUIN ity [facility] 2021-06-04 2021-06-04 [facility] 1.2.677.456 [id number] Univers 08:16:00 11:35:00 Encounter Jo[place]quin [place] 350.1.13.10 it[place] [id number] [facility] 071 Branch 2021-06-04 2021-06-04 [facility] 1.2.840.114 [id number] Univers 10:14:00 10:56:00 [place]quin [place] 350.1.13.10 ity of [place] [id number] [facility] 020 Branch 2021-06-04 2021-06-04 Orders Doctor JOSEF 1.2.840.114 [id number] Univers 00:00:00 00:00:00 Only Unassigned, MIKE 350.1.13.10 ity of [place] [facility] 4.2.7.2.686 Rob as [id number] [facility] 009 Branch 2021-06-02 2021-06-02 Laboratory Only, Adc Test [facility] 1.2.840. 114 [id number] Univers 14:30:00 14:45:00 Only Joaquin Tomas 350.1.13.1 0 ity [facility] 4.[place] [id number] [facility] 353 Branch 2021-06-02 2021-06-02 Outpatient R THOM [facility] [id number] Univers 14:30:00 14:30:00 JOAQUIN reaves [facility] 2021-05-26 2021-05-26 Laboratory Only, Adc Test [facility] 1.2.840. 114 [id number] Univers 10:30:00 10:45:00 Only Joaquin Tomas 350.1.13.1 0 ity [facility] 4.[place].2.[place] [id number] [facility] 353 Branch 2021-05-26 2021-05-26 Outpatient R THOM [facility] [id number] Univers 10:30:00 10:30:00 JOAQUIN reaves [facility] 2021-05-26 2021-05-26 Orders Doctor BAHENA 1.2.840.114 [id number] Univers 00:00:00 00:00:00 Only Unassigned, MIKE 350.1.13.10 ity of [facility] [facility] 4.2.7.2.686 Rob as [id number] [address] 2021-05-12 2021-05-12 Kidney Puller Rosie, Adc Lab Main [facility] 1.2.8 40.114 [id number] Univers 13:45:00 14:00:00 Visit Joaquin Tomas 350.1.13.1 0 estelle [facility] 4.2.7.2.686 Shanae MCCRAY [id number] Al dical NAL 353 Branch [facility] 2021-05-12 2021-05-12 Outpatient Sung [facility] [id number] Univers 13:45:00 13:45:00 JOAQUIN reaves [facility] 2021-04-17 2021-04-17 Outpatient MHIE MHIE [id number] Memoria 13:15:00 13:15:00 09 jenae Riley 2021-04-17 2021-04-17 Outpatient MHIE MHIE [id number] [facility]oria 13:15:00 13:15:00 09 jenae Riley 2020-12-05 2020-12-05 Outpatient MHIE MHIE [id number] [facility]oria 14:15:00 14:15:00 08 jenae Riley 2020-12-05 2020-12-05 Outpatient MHIE MHIE [id number] Memoria 14:15:00 14:15:00 08 jenae Riley 2019-04-21 2019-04-21 Outpatient MHIE MHIE [id number] Memoria 09:45:00 09:45:00 04 jenae Riley 2019-04-21 2019-04-21 Outpatient MHIE MHIE [id number] Memoria 09:45:00 09:45:00 04 jenae Riley 2018-11-30 2018-11-30 Ambulatory nullFlavo MNA [id number] [facility]oria 20:30:00 20:30:00 Pre-Reg r Neurology 05 l [place] Osvaldo 2018-11-30 2018-11-30 Ambulatory nullFlavo MNA [id number] Memoria 20:30:00 20:30:00 Pre-Reg r Neurology 05 l Dmitri Riley 2018-11-30 2018-11-30 Outpatient MHIE MHIE [id number] Memoria 15:30:00 15:30:00 06 jenae Riley 2018-11-30 2018-11-30 Outpatient MHIE MHIE [id number] Memoria 15:30:00 15:30:00 05 jenae Osvaldo 2018-11-30 2018-11-30 Outpatient MHIE MHIE [id number] Memoria 15:30:00 15:30:00 06 jenae Osvaldo 2018-11-30 2018-11-30 [id number] 15:30:00 15:30:00 Bucky Olu Advid 2018-10-19 2018-10-20 Outpatient nullFlavo MNA [id number] Memoria 14:30:00 04:59:59 r Neurology 03 l Dmitri Osvaldo 2018-10-19 2018-10-20 Outpatient nullFlavo MNA [id number] [facility]oria 14:30:00 04:59:59 r Neurology 03 l Dmitri Osvaldo 2018-10-19 2018-10-19 [facility] [id number] 09:30:00 23:59:59 Bucky Sondra David 2018-10-19 2018-10-19 Outpatient MHIE MHIE [id number] Memoria 09:30:00 09:30:00 03 jenae Osvaldo 2018-07-12 2018-07-12 Outpatient MHIE MHIE [id number] Memoria 11:45:00 11:45:00 02 jenae Osvaldo 2018-07-12 2018-07-12 Outpatient MHIE MHIE [id number] Memoria 11:45:00 11:45:00 02 jenae Riley 2018-07-08 2018-07-08 Outpatient MHIE MHIE [id number] Memoria 10:30:00 10:30:00 01 jenae Riley 2018-07-08 2018-07-08 Outpatient MHIE MHIE [id number] Memoria 10:30:00 10:30:00 01 jenae Riley 2018-06-10 2018-06-10 Outpatient MHIE MHIE [id number] Memoria 10:15:00 10:15:00 00 jenae Riley 2018-06-10 2018-06-10 Outpatient MHIE MHIE [id number] Memoria 10:15:00 10:15:00 00 jenae Riley Results Test Description Test Time Test Comments Results Result Comments Source ECG Pre/Post Op 2022-09-08 16:09:51 Test Item Value Reference Range Interpretation Comme nts Ventricular rate (test code = 253) 70 Atrial rate (test code = 255) 70 LA interval (test code = 266) 190 QRSD interval (test code = 260) 88 QT interval (test code = 264) 418 QTC interval (test code = 265) 451 P axis 1 (test code = 267) 29 QRS axis 1 (test code = 268) -7 T wave axis (test code = 270) 45 EKG impression (test code = 273) Normal sinus rhythm with sinus arrhythmia-Anteroseptal infarct , age undetermined-Abnormal ECG-In automated comparison with ECG of 05-JUL-2014 20:21,-premature atrial complexes are no longer present-Anteroseptal infarct is now present- [facility]
[2022-09-18] MEDS ORDERED: NA CHLORIDE 0.9% 1,000 ML ONE (09:33)
[2022-09-18 09:42] LABS: Absolute Lymphocytes (CBC) 1.9 K/uL (0.7-4.9); Hematocrit 39.6 % (36.0-45.0); Lymphocytes % 21.4 % (15.3-44.8); MCV 92.2 fL (80-100); MPV 7.6 fL (7.6-11.3); RBC Red Blood Cell Count 4.29 M/uL (3.86-4.86)
--- NOTE | 2022-09-18 09:48 | RAD REPORT ---
EXAM DESCRIPTION: RAD - Chest Single View - 09/18/2022 9:40 am CLINICAL HISTORY: PALPITATIONS COMPARISON: Chest Pa And Lat (2 Views) dated 04/23/2022; CHEST SINGLE VIEW dated 07/05/2014; CHEST SING LE VIEW dated 07/02/2014; CHEST SINGLE VIEW dated 07/01/2014 FINDINGS: Lines: Pacemaker. Lungs: No evidence of edema or pneumonia. Pleural: No significant pleural effusions or pneumothorax. Cardiac: The heart size is within normal limits. Mediastinum: Within normal limits. Bones: No acute fractures. Other: None IMPRESSION: No acute cardiopulmonary disease.
[2022-09-18 10:02] LABS: Albumin 3.1 g/dL (3.4-5.0); Bilirubin Direct 0.1 mg/dL (0-0.2); Bilirubin Indirect, Calculated 0.4 mg/dL (0.2-0.8); Bilirubin Total 0.5 mg/dL (0.2-1.0); Magnesium 2.2 mg/dL (1.6-2.4); Potassium 3.9 mEq/L (3.5-5.1); Protein, Total 6.5 g/dL (6.4-8.2); Thyroid Stimulating Hormone 1.44 uIU/mL (0.358-3.740)
[2022-09-18 10:16] LABS: Protime INR 1.05
[2022-09-18] MEDS ORDERED: ENOXAPARIN 80 MG/0.8 ML SQ ONE (10:42)
[2022-09-18] MEDS ORDERED: METOPROLOL TARTRATE 5 MG/5 ML INJ IV ONE (10:42)
--- NOTE | 2022-09-18 11:13 | EDPHYS ---
Physician Documentation [facility] Name: Radhika Paz Age: 82 yrs Sex: Female : 1940 Arrival Date: 09/18/2022 Time: 09:08 Bed 16 Private MD: ED Physician Geovani Willoughby HPI: 09/18 09:27 This 82 yrs old Female presents to ER via Unassigned with complaints of melanie weakness and palpitations. 09:27 The patient presents with a history of irregular heart beat, heart racing. Context: The melanie symptoms occur with light activity. Onset: The symptoms/episode began/occurred 3 day(s) ago. Duration: The patient or guardian reports multiple episodes, that wax and wane. Modifying factors: The symptoms are aggravated by nothing. The symptoms are alleviated by nothing. weak , had pm wires changed last week. Associated signs and symptoms: Pertinent positives: lightheadedness, near-syncope. Severity of symptoms: At their worst the symptoms were moderate in the emergency department the symptoms have improved mildly. The patient has experienced similar episodes in the past, multiple times. Historical: - Allergies: 09:32 No Known Allergies; ml4 - PMHx: 09:32 Pacemaker; Hypertension; Atrial fibrillation; chronic back pain; ml4 - PSHx: 09:32 Tonsillectomy; ml4 - Immunization history:: Adult Immunizations unknown. - Social history:: Smoking status: Patient denies any tobacco usage or history of. Patient/guardian denies using. - Family history:: not pertinent. - Hospitalizations: : Patient was recently seen at [facility]. ROS: 09:27 Constitutional: Negative for fever, chills, and weight loss, Eyes: Negative for injury, melanie pain, redness, and discharge, ENT: Negative for injury, pain, and discharge, Neck: Negative for injury, pain, and swelling, Respiratory: Negative for shortness of breath, cough, wheezing, and pleuritic chest pain, Abdomen/GI: Negative for abdominal pain, nausea, vomiting, diarrhea, and constipation, Back: Negative for injury and pain, : Negative for injury, bleeding, discharge, and swelling, MS/Extremity: Negative for injury and deformity, Skin: Negative for injury, rash, and discoloration, Psych: Negative for depression, anxiety, suicide ideation, homicidal ideation, and hallucinations, Allergy/Immunology: Negative for hives, rash, and allergies, Endocrine: Negative for neck swelling, polydipsia, polyuria, polyphagia, and marked weight changes, Hematologic/Lymphatic: Negative for swollen nodes, abnormal bleeding, and unusual bruising. 09: Cardiovascular: Positive for palpitations. : Neuro: Positive for dizziness, weakness. Exam: : Constitutional: This is a well developed, well nourished patient who is awake, alert, melanie and in no acute distress. Head/Face: Normocephalic, atraumatic. Eyes: Pupils equal round and reactive to light, extra-ocular motions intact. Lids and lashes normal. Conjunctiva and sclera are non-icteric and not injected. Cornea within normal limits. Periorbital areas with no swelling, redness, or edema. ENT: Nares patent. No nasal discharge, no septal abnormalities noted. Tympanic membranes are normal and external auditory canals are clear. Oropharynx with no redness, swelling, or masses, exudates, or evidence of obstruction, uvula midline. Mucous membranes moist. Neck: Trachea midline, no thyromegaly or masses palpated, and no cervical lymphadenopathy. Supple, full range of motion without nuchal rigidity, or vertebral point tenderness. No Meningismus. Chest/axilla: Normal chest wall appearance and motion. Nontender with no deformity. No lesions are appreciated. Respiratory: Lungs have equal breath sounds bilaterally, clear to auscultation and percussion. No rales, rhonchi or wheezes noted. No increased work of breathing, no retractions or nasal flaring. Abdomen/GI: Soft, non-tender, with normal bowel sounds. No distension or tympany. No guarding or rebound. No evidence of tenderness throughout. Back: No spinal tenderness. No costovertebral tenderness. Full range of motion. Female : Normal external genitalia. Skin: Warm, dry with normal turgor. Normal color with no rashes, no lesions, and no evidence of cellulitis. MS/ Extremity: Pulses equal, no cyanosis. Neurovascular intact. Full, normal range of motion. Neuro: Awake and alert, GCS 15, oriented to person, place, time, and situation. Cranial nerves II-XII grossly intact. Motor strength 5/5 in all extremities. Sensory grossly intact. Cerebellar exam normal. Normal gait. Psych: Awake, alert, with orientation to person, place and time. Behavior, mood, and affect are within normal limits. 09:27 Cardiovascular: Rate: tachycardic, actual rate is 117 bpm, Rhythm: irregularly irregular, Pulses: Pulses are 4+ in bilateral radial, brachial, femoral, popliteal, posterior tibial and and dorsalis pedis arteries.. Heart sounds: normal, Edema: is not appreciated, JVD: is not appreciated. 09:27 ECG was reviewed by the Attending Physician. Vital Signs: 09:26 BP 147 / 65; Pulse 122; Resp 18; Temp 97.8; Pulse Ox 96% on R/A; Pain 0/10; ml4 09:51 BP 151 / 70; Pulse 128; Resp 18; Pulse Ox 97% ; ph 10:33 Weight 74.84 kg; ph 11:06 BP 138 / 80; Pulse 108; Resp 18; Pulse Ox 97% on R/A; ph 12:15 BP 142 / 72; Pulse 120; Resp 18; Pulse Ox 97% on R/A; ph 13:23 BP 118 / 78; Pulse 113; Resp 18; Pulse Ox 98% on R/A; ph 09:26 Pain Scale: Adult ml4 MDM: 09:10 Patient medically screened. melanie 09:31 Data reviewed: vital signs, nurses notes, old medical records, pacemaker lab test [facility] result(s), CBC, electrolytes, hepatic panel, urinalysis, EKG, radiologic studies, plain films. Consideration of Admission/Observation Escalation of care including admission/observation considered. I considered the following discharge prescriptions or medication management in the emergency department Medications were administered in the Emergency Department. See MAR. Test considered but Not performed: CT: no ct chest. 09/18 09:19 Order name: Basic Metabolic Panel; Complete Time: 10:15 [facility] 09/18 09:19 Order name: CBC with Diff; Complete Time: 10:15 [facility] 09/18 09:19 Order name: LFT's; Complete Time: 10:15 melanie 09/18 09:19 Order name: Magnesium; Complete Time: 10:15 melanie 09/18 09:19 Order name: NT PRO-BNP; Complete Time: 10:15 melanie 09/18 09:19 Order name: PT-INR; Complete Time: 11:00 09/18 09:19 Order name: Troponin HS; Complete Time: 10:15 [facility] 09/18 09:19 Order name: TSH; Complete Time: 10:15 [facility] 09/18 09:22 Order name: Urinalysis w/ reflexes [facility] 09/18 16:17 Order name: Troponin High Sensitivity [facility] 09/18 09:19 Order name: XRAY Chest (1 view); Complete Time: 10:15 [facility] 09/18 11:47 Order name: Echo without doppler (2D) 09/18 09:19 Order name: EKG; Complete Time: 09:19 [facility] 09/18 10:41 Order name: Diet Heart Healthy; Complete Time: 10:42 09/18 11:49 Order name: CONS Physician Consult [facility] 09/18 09:19 Order name: Cardiac monitoring; Complete Time: 09:25 [facility] 09/18 09:19 Order name: EKG - Nurse/Tech; Complete Time: 09:25 [facility] 09/18 09:19 Order name: IV Saline Lock; Complete Time: 09:25 [facility] 09/18 09:19 Order name: Labs collected and sent; Complete Time: 09:25 [facility] 09/18 09:19 Order name: O2 Per Protocol; Complete Time: 09:25 [facility] 09/18 09:19 Order name: O2 Sat Monitoring; Complete Time: 09:25 [facility] 09/18 09:38 Order name: Labs - recollect needed: recollect blue top/ hemolyzed; Complete Time: 10:07eb EC:27 Rate is 117 beats/min. Rhythm is irregularly irregular. QRS [place] is Normal. UT interval melanie is normal. QRS interval is normal. QT interval is normal. No Q waves. T waves are Normal. No ST changes noted. Clinical impression: Atrial Fibrillation and No evidence of ischemia. Interpreted by me. Reviewed by me. Administered Medications: 10:15 Drug: NS 0.9% IV 1000 ml Route: IV; Rate: 125 ml/hr; Site: right wrist; ph 10:45 Drug: Metoprolol IVP 5 mg Route: IVP; Site: right wrist; ph 10:50 Drug: Enoxaparin Sub-Q 1 mg/kg {Note: 70 mg dose given.} Route: Sub-Q; Site: right ph lower abdomen; 12:56 Drug: Metoprolol IVP 5 mg Route: IVP; Site: right wrist; ph Disposition Summary: 09/18/22 11:12 Hospitalization Ordered Hospitalization Status: Inpatient Admission melanie Provider: Ortiz Woodard cha Location: Telemetry/MedSurg (Inpatient) melanie Condition: Fair melanie Problem: new melanie Symptoms: have improved melanie Bed/Room Type: Standard melanie Room Assignment: 208(09/18/22 15:53) dw Diagnosis - Paroxysmal atrial fibrillation - with RVR melanie - Weakness melanie - Chest pain, unspecified melanie Forms: - Medication Reconciliation Form melanie - SBAR form melanie Signatures: Dispatcher [employer] EDLuciana Thorpe RN RN dw Geovani Willoughby MD MD cha Hall, Patricia, RN RN Sharon Camacho RNIII, Zack RN RN ml4 Corrections: (The following items were deleted from the chart) 15:53 11:12 melanie dw
--- NOTE | 2022-09-18 11:13 | ER ---
Nurse's Notes [facility] Name: Radhika Paz Age: 82 yrs Sex: Female : 1940 Arrival Date: 09/18/2022 Time: 09:08 Bed 16 Private MD: Diagnosis: Paroxysmal atrial fibrillation-with RVR;Weakness;Chest pain, unspecified Presentation: 09/18 09:26 Chief complaint: Patient states: chest pain, fatigue. Coronavirus screen: At this time, ml4 the client does not indicate any symptoms associated with coronavirus-19. Ebola Screen: Patient denies travel to an Ebola-affected area in the 21 days before illness onset. Initial Sepsis Screen: Does the patient meet any 2 criteria? HR > 90 bpm. No. Patient's initial sepsis screen is negative. Does the patient have a suspected source of infection? No. Patient's initial sepsis screen is negative. Risk Assessment: Do you want to hurt yourself or someone else? Patient reports no desire to harm self or others. Onset of symptoms was September 18, 2022. Care prior to arrival: Medication(s) given: Normal saline infusion, 200cc IV initiated. 20 GA, in the right wrist. Transition of care: patient was not received from another setting of care. 09:26 Method Of Arrival: EMS: [facility] ml4 09:26 Acuity: AMADOU 2 ml4 09:38 Note Arrived via EMS from home after onset of intermittent CP/palpitations x today. PMH ml4 afib, with PM, takes ASA daily- not taking x 10 days. AOX4, RR E/U. Speech clear. Triage Assessment: 09:34 General: Appears in no apparent distress. comfortable, well groomed, Behavior is calm, ml4 cooperative, appropriate for age. Pain: Denies pain. Neuro: No deficits noted. Level of Consciousness is awake, alert, obeys commands, Oriented to person, place, time, situation, Appropriate for age. Cardiovascular: Reports chest pain, palpitations, since today Denies chest pain, palpitations, at this time. Respiratory: No deficits noted. Airway is patent. Historical: - Allergies: 09:32 No Known Allergies; ml4 - PMHx: 09:32 Pacemaker; Hypertension; Atrial fibrillation; chronic back pain; ml4 - PSHx: 09:32 Tonsillectomy; ml4 - Immunization history:: Adult Immunizations unknown. - Social history:: Smoking status: Patient denies any tobacco usage or history of. Patient/guardian denies using. - Family history:: not pertinent. - Hospitalizations: : Patient was recently seen at [facility]. Screenin:36 [facility] ED Fall Risk Assessment (Adult) History of falling in the last 3 months, ml4 including since admission No falls in past 3 months (0 pts) Confusion or Disorientation No (0 pts) Intoxicated or Sedated No (0 pts) Impaired Gait No (0 pts) Mobility Assist Device Used No (0 pt) Altered Elimination No (0 pt) Score/Fall Risk Level 0 - 2 = Low Risk. [facility] ED Fall Risk Assessment (Adult) Score/Fall Risk Level. Abuse screen: Denies threats or abuse. Nutritional screening: No deficits noted. Tuberculosis screening: No symptoms or risk factors identified. Assessment: 09:37 Reassessment: See traige charting. ml4 10:45 Reassessment: Patient appears in no apparent distress at this time. Patient and/or ph family updated on plan of care and expected duration. Pain level reassessed. Patient is alert, oriented x 3, equal unlabored respirations, skin warm/dry/pink. Dr Woodard at bedside to speak w/ pt. Vital Signs: 09:26 BP 147 / 65; Pulse 122; Resp 18; Temp 97.8; Pulse Ox 96% on R/A; Pain 0/10; ml4 09:51 BP 151 / 70; Pulse 128; Resp 18; Pulse Ox 97% ; ph 10:33 Weight 74.84 kg; ph 11:06 BP 138 / 80; Pulse 108; Resp 18; Pulse Ox 97% on R/A; ph 12:15 BP 142 / 72; Pulse 120; Resp 18; Pulse Ox 97% on R/A; ph 13:23 BP 118 / 78; Pulse 113; Resp 18; Pulse Ox 98% on R/A; ph 09:26 Pain Scale: Adult ml4 Vitals: 09:51 Cardiac Rhythm Assessment Irregular. ED Course: 09:09 Patient arrived in ED. ld1 09:10 Geovani Willoughby MD is Attending Physician. melanie 09:25 ARON GalindoIII, Zack, ARON is Primary Nurse. ml4 09:25 Troponin HS Sent. ml4 09:25 PT-INR Sent. ml4 09:25 NT PRO-BNP Sent. ml4 09:25 Magnesium Sent. ml4 09:25 LFT's Sent. ml4 09:25 CBC with Diff Sent. ml4 09:25 Basic Metabolic Panel Sent. ml4 09:26 TSH Sent. ml4 09:32 Triage completed. ml4 09:34 Arm band placed on left wrist. Patient placed in the treatment room, on a stretcher, on ml4 clinical research monitor, on pulse oximetry, Patient notified of wait time. EKG completed in triage. Results shown to MD. EKG done per protocol. Labs ordered per protocol. 09:36 No apparent distress. Awaiting for x-ray. ml4 09:36 No provider procedures requiring assistance completed. Maintain EMS IV. Dressing ml4 intact. Good blood return noted. Site clean \T\ dry. Gauge \T\ site: 22g R wrist. IV is intact, with good blood return. 09:36 Patient has correct armband on for positive identification. Placed in gown. Bed in low ml4 position. Call light in reach. Side rails up X2. Door closed. Warm blanket given. Head of bed Elevated. 09:42 XRAY Chest (1 view) In Process Unspecified. EDMS 09:51 Fern Caicedo, RN is Primary Nurse. ph 11:00 Ortiz Woodard MD is Hospitalizing Provider. melanie Administered Medications: 10:15 Drug: NS 0.9% IV 1000 ml Route: IV; Rate: 125 ml/hr; Site: right wrist; ph 10:45 Drug: Metoprolol IVP 5 mg Route: IVP; Site: right wrist; ph 10:50 Drug: Enoxaparin Sub-Q 1 mg/kg {Note: 70 mg dose given.} Route: Sub-Q; Site: right ph lower abdomen; 12:56 Drug: Metoprolol IVP 5 mg Route: IVP; Site: right wrist; ph Medication: 09:51 VIS not applicable for this client. ph Outcome: 11:12 Decision to Hospitalize by Provider. melanie 17:40 Patient left the ED. ph Signatures: Dispatcher [employer] EDMS Geovani Willoughby MD MD cha Hall, Patricia, ARON RN ph Ivon, Darling RN RN ld1 ARON GalindoIII, Zack RN RN ml4
[2022-09-18 12:27] LABS: Specific Gravity 1.009 (1.005-1.030); Urine Bacteria None Seen /HPF (<20); Urine Bilirubin NEGATIVE (Negative); Urine Blood Negative (Negative); Urine Clarity Turbid (Clear); Urine Color Light-Yellow (Yellow); Urine Glucose NEGATIVE (Negative); Urine Mucus Slight /HPF (None Seen); Urine Protein NEGATIVE (Negative); Urine RBC <5 /HPF (None Seen); Urine Urobilinogen Normal (Normal); Urine pH 5.5 (5.0-7.0)
[2022-09-18] MEDS ORDERED: ONDANSETRON 4 MG/2 ML VIAL IV PRN (14:12)
[2022-09-18] MEDS ORDERED: HEPARIN/D5W 25,000 UNIT/500 ML BAG IV SCH (14:12)
[2022-09-18] MEDS ORDERED: MORPHINE 2 MG/ML SYR IV PRN (14:12)
[2022-09-18] MEDS ORDERED: ACETAMINOPHEN 500 MG TAB PO PRN (14:12)
--- NOTE | 2022-09-18 14:38 | ECHO ---
HEIGHT: 5 ft 8in WEIGHT: 165lb oz DATE OF STUDY: 09/18/[address]: Geovani Willoughby MD 2-DIMENSIONAL: YES M.MODE: YES DOPPLER: YES COLOR FLOW: YES TDS: NO PORTABLE: YES DEFINITY: NO BUBBLE STUDY: NO DIAGNOSIS: CHEST PAIN CARDIAC HISTORY: CATHERIZATION: SURGERY: PROSTHETIC VALVE: PACEMAKER: YES MEASUREMENTS (cm) DIASTOLIC (NORMALS) SYSTOLIC (NORMALS) IVSd 1.1 (0.6-1.2) LA Diam 3.0 (1.9-4.0) LVEF 75% LVIDd 4.4 (3.5-5.7) LVIDs 2.5 (2.0-3.5) %FS 43% LVPWd 1.0 (0.6-1.2) Ao Diam 2.9 (2.0-3.7) 2 DIMENSIONAL ASSESSMENT: RIGHT ATRIUM: NORMAL LEFT ATRIUM: NORMAL RIGHT VENTRICLE: NORMAL LEFT VENTRICLE: NORMAL TRICUSPID VALVE: MILD TRICUSPID REGURGITATION MITRAL VALVE: MILD MITRAL REGURGITATION PULMONIC VALVE: MILD PULMONIC INSUFFICIENCY AORTIC VALVE: MODERATE AORTIC STENOSIS PERICARDIAL EFFUSION: NONE AORTIC ROOT: NORMAL LEFT VENTRICULAR WALL MOTION: NORMAL. DOPPLER/COLOR FLOW: SEE BELOW. COMMENTS: NORMAL LEFT VENTRICULAR EJECTION FRACTION 60-65% WITH NORMAL WALL MOTION MILD MITRAL REGURGITATION MILD TRICUSPID REGURGITATION/PULMONIC INSUFFICIENCY MODERATE AORTIC INSUFFICIENCY SEVERE DIASTOLIC DYSFUNCTION TECHNOLOGIST: JOSE CARRIZALES
[2022-09-18 15:24] VITALS: BMI 25.0
--- NOTE | 2022-09-18 18:56 | HP ---
Date of Admission: 09/18/2022 Chief Complaint: Palpitation and shortness of breath. 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 Patient says that in last couple of days, she started to have some feeling of palpitation, heart racing type of feeling along with some shortness of breath with minimal daily activities and she came into emergency room with this complaint. After she was evaluated she was admitted to the hospital with atrial fibrillation with rapid ventricular rate. I saw her in the emergency room, and her son was with her at bedside. Medications: Minocycline 100 mg 2 times a day for 5 days, which was prescribed after her recent pacemaker procedure and she has taken 5 doses and in her bottle, she has 5 more doses left. Tramadol 50 mg takes half a tablet every 8 hours as needed. Amlodipine 5 mg daily. Aspirin 81 mg daily. Gabapentin 300 mg daily. Levothyroxine 88 mcg daily. Metoprolol succinate 50 mg 3 times a day. Propafenone 325 mg 2 times a day. Allergies: NO KNOWN ALLERGIES. Review of Systems: Cardiovascular: As mentioned above. All other systems reviewed and negative. Past Medical History: Significant for paroxysmal atrial fibrillation, impaired fasting glucose, hypertension, hyperlipidemia, insomnia, osteoarthritis at multiple sites. Past Surgical History: Back surgery, hysterectomy, tonsillectomy. Family History: Father had Alzheimer's. Mother had COPD, hypertension. Social History: Patient is , lives at home by herself. Negative for smoking and alcohol use. Physical Examination: Vital Signs: Height 5 feet 8 inches, weight 165 pounds, temperature 97.8, pulse 122, respiratory rate 18, blood pressure 147/65, oxygen saturation 96%. General: Awake, alert, oriented, not in distress. HEENT: Head atraumatic, normocephalic. Conjunctivae nonerythematous. Sclerae white. Mouth, no thrush or edema noted. Ears/Nose, no mass, lesion, discharge noted. Neck: Supple. No JVD, lymph nodes, bruit, thyromegaly noted. Lungs: Bilateral good equal air entry. Clear to auscultation. No rhonchi. No rales. Heart: Sounds normal. Heart rate is irregularly irregular. No murmur. No gallop. Abdomen: Soft, bowel sounds normal. No guarding, rigidity, tenderness, mass, hepatosplenomegaly, distention, or bruit noted. Extremities: No leg edema. No calf tenderness. Skin: No rash, ulcer, cellulitis. Lymphatics: No lymph node enlargement in neck, supraclavicular, infraclavicular region. Neuro: No focal neurological deficit. Chest: Wall examination shows evidence of pacemaker in the left infraclavicular region with the presence of Steri-Strips type of clear dressing. No evidence of any redness, swelling, discharge, bleeding, etc., from this area. External Genitalia: Deferred. Rectal: Deferred. Laboratory Data: White count 8.9, hemoglobin 13.3, platelets 282. Sodium 141, potassium 3.9, chloride 112, bicarb 26, BUN 22, creatinine 0.90, glucose 116. Liver function tests unremarkable. ProBNP 5789. TSH 1.44, magnesium 2.2. Chest x-ray, no acute cardiopulmonary changes. EKG, atrial fibrillation with rapid ventricular rate with some PVCs. Impression: 1. Paroxysmal atrial fibrillation with rapid ventricular rate. 2. Hypertension. 3. Hyperlipidemia. 4. Osteoarthritis, multiple sites. 5. Insomnia. 6. Impaired fasting glucose. Plan: Admit patient to hospital for further evaluation and management of this problem. We will admit her to telemetry and consult Cardiology. Start patient on anticoagulation therapy. Risks, benefits of anticoagulation therapy discussed with her in the emergency room in presence of her son and recommended for her to start anticoagulation therapy. She received her first dose of Lovenox in the emergency room, but upon discharge from the hospital, our plan is to send her home with medication like Eliquis and I did inform her that such medication needs to be taken about 12 hours apart and any anticoagulation medication she takes, she will need to be extra careful about the bleeding complication, risk of spontaneous bleeding explained to her. For example intracranial bleeding or nosebleed, hemoptysis, blood in urine, blood in stool, etc., or excessive amount of bleeding from any skin laceration and if any of this problem happens or if she has any fall or head injury, she should immediately report to emergency room for further evaluation. Patient was advised to take appropriate precautions to avoid any fall and injury. She was also advised to avoid handling sharp objects like knife and scissors, etc. Her morning dose of minocycline was given to her while I was in the room with her using her home supply and she has 2 more days total 4 capsules left and she was encouraged to continue those until it is all gone. We will consult Cardiology and now we will see her tomorrow for followup. We will continue metoprolol as per order and we may have to make adjustment on metoprolol dose for better heart rate control. Continue antiarrhythmic medication as she takes. Continue gabapentin also the way she takes at home. WARD/HARJEET Voice ID: [id number] MTDD
--- NOTE | 2022-09-18 19:52 | CON ---
Date of Consultation: 09/18/2022 Reason For Consultation: Atrial fibrillation with rapid ventricular response. History Of Present Illness: This 82-year-old female with past medical history of paroxysmal atrial f ibrillation, hypertension, recent pacemaker implantation presented to the emergency room with irregul ar heart rhythm and palpitations. She was found to be in atrial fibrillation with rapid ventricular response, responded to 2 rounds of metoprolol, and converted to sinus rhythm. At the time of my eval uation, she was in sinus rhythm and has no symptoms. No chest pain or shortness of breath. Past Medical History: As outlined above in the HPI. Medications: Refer to reconciliation sheet for detailed list. Allergies: NO KNOWN DRUG ALLERGIES. Family History: No premature coronary artery disease or cancer. Social History: She does not smoke or drink. Does not use any drugs. Review of Systems: All systems reviewed and they were negative except as mentioned in HPI. Physical Examination: Vital Signs: Reviewed. Head And Neck: Pupils are equal and reactive to light. Intact eye movements. No JVD. No cervical lymphadenopathy. Neck is supple. Thyroid is not enlarged. Lungs: Clear to auscultation bilaterally. No rhonchi, wheezing, or crackles. No accessory muscle u se. Heart: Regular rate and rhythm. No extra sounds. Abdomen: Soft, nontender. Bowel sounds positive. No organomegaly. No masses or hernia. No rigidi ty or rebound. Extremities: No clubbing or cyanosis. Intact pulses. Skin: No rash. Neurologic: Alert, awake. No acute focal deficits appreciated. Investigations: BUN 22, creatinine 0.9. Hemoglobin is 13.1. On echo, ejection fraction is normal. She has severe diastolic dysfunction. Assessment And Recommendation: 1.Atrial fibrillation with rapid ventricular response. Currently converted to sinus rhythm. Contin ue metoprolol and recommend to start on Eliquis 5 mg twice a day for stroke prevention. From Cardiol ogy standpoint, the patient can be released later today, if she continues to stay in sinus rhythm. T here is no need for IV heparin and I will continue with the Rythmol as well. We can see the patient as an outpatient in the office in 1 week. 2.Severe diastolic heart failure hence the elevated NT proBNP. She appears to be euvolemic. Contin ue current management and strict low-salt diet is encouraged. Thank you for the consult. Cardiology will sign off. SR/MODL Voice ID: [id number] Report ID: [id number]
[2022-09-18] MEDS: APIXABAN 5 MG TABLET PO SCH (20:38)
[2022-09-18] MEDS: METOPROLOL XL 50 MG TAB PO SCH (20:40)
[2022-09-18] MEDS ORDERED: PROPAFENONE HCL 150 MG TAB PO SCH (21:00)
[2022-09-18] MEDS ORDERED: DIPHENHYDRAMINE 25 MG TAB/CAP PO SCH (21:00)
[2022-09-18] MEDS ORDERED: FAMOTIDINE 20 MG/2 ML VIAL IV SCH (21:00)
[2022-09-18] MEDS ORDERED: ACETAMINOPHEN 500 MG TAB PO SCH (21:00)
[2022-09-19] MEDS ORDERED: ACETAMINOPHEN 325 MG TABLET PO PRN (02:00)
[2022-09-19 02:57] LABS: Absolute Lymphocytes (CBC) 1.9 K/uL (0.7-4.9); Hematocrit 37.1 % (36.0-45.0); Lymphocytes % 26.7 % (15.3-44.8); MCV 91.9 fL (80-100); MPV 7.4 fL (7.6-11.3); RBC Red Blood Cell Count 4.04 M/uL (3.86-4.86)
[2022-09-19 03:14] LABS: Potassium 3.8 mEq/L (3.5-5.1)
[2022-09-19] MEDS ORDERED: LEVOTHYROXINE SOD 0.088 MG TAB PO SCH (06:30)
[2022-09-19] MEDS: APIXABAN 5 MG TABLET PO SCH (08:21)
[2022-09-19] MEDS: METOPROLOL XL 50 MG TAB PO SCH (08:22)
[2022-09-19 08:23] VITALS: BP 148/57
[2022-09-19 08:35] VITALS: TEMP 97.8
[2022-09-19] MEDS ORDERED: METOPROLOL XL 50 MG TAB PO SCH (09:00)
[2022-09-19] MEDS ORDERED: ASPIRIN EC 81 MG TAB PO SCH (09:00)
[2022-09-19] MEDS ORDERED: GABAPENTIN 300 MG CAP PO SCH (09:00)
[2022-09-19] MEDS ORDERED: AMLODIPINE 5 MG TAB PO SCH (09:00)
[2022-09-19 09:26] VITALS: O2SAT 95
--- NOTE | 2022-09-19 10:08 | DS ---
Date of Discharge: 09/19/2022 Disposition: Discharged to go home. Physical Examination: HEENT: Unremarkable. Lungs: Clear to auscultation. Heart: Sounds normal. Abdomen: Soft. Bowel sounds normal. No guarding, rigidity, tenderness, distention. Extremities: No leg edema. Laboratory Data: Yesterday; white count 8.9, hemoglobin 13.3, platelets 282. Today; white count 7, hemoglobin 12.3, platelets 253. Yesterday; sodium 141, potassium 3.9, chloride 112, bicarb 26, BUN 22, creatinine 0.90, glucose 116, magnesium 2.2. Liver function tests unremarkable. First troponin 48, second troponin 46. TSH 1.44. Today; sodium 140, potassium 3.8, chloride 108, bicarb 25, BUN 22, creatinine 0.80, glucose 88. Echocardiogram shows normal ejection fraction, mild mitral regurgitation, mild tricuspid regurgitation, pulmonary regurgitation, moderate aortic regurgitation, and severe diastolic dysfunction. Discharge Medications And Instructions: 1. Continue all prior home medications except change metoprolol 50 mg, take 1 tablet by mouth 2 times a day. 2. Stop aspirin. 3. Take Eliquis 5 mg 2 times a day. 4. Follow up at my office next week. 5. Follow up with valuation manager in 2 weeks. Hospital Course: This is an 82-year-old pleasant female patient, admitted to the hospital with palpitation and shortness of breath. Please see dictated H and P for more information. After the patient was evaluated in the emergency room, she was admitted to the hospital when she came into the ER with atrial fibrillation with rapid ventricular rate. The patient was admitted to the hospital. She received 1 dose of Lovenox in the emergency room yesterday. After that, we started Eliquis 5 mg 2 times a day. At home, she takes antiarrhythmic medication, propafenone which was continued and she also takes metoprolol 50 mg daily and we decided to increase the dose to 50 mg 2 times a day. Hemodynamically, she was stable and the patient overall feels a lot better. Cardiology consultation was requested and Dr. Gonzales saw her from Cardiology point of view. The patient is medically stable. This morning, she feels fine and has no complaints and she was discharged to go home in stable condition with above-mentioned medications and instructions. Diagnoses: 1. Paroxysmal atrial fibrillation. 2. Hypertension. 3. Hyperlipidemia. 4. Impaired fasting glucose. 5. Insomnia. 6. Osteoarthritis, multiple sites. WARD/MODL Voice ID: [id number] Report ID: [id number] MTDD
--- NOTE | 2022-09-21 17:57 | EKG ---
Test Date: 2022-09-18 Test Time: 09:20:28 Grain Operations Manager: Meliza BECERRA MEASUREMENT RESULTS: Intervals: Rate: 117 MD: QRSD: 90 QT: 274 QTc: 382 [place]: P: MD: QRS: 25 T: 265 INTERPRETIVE STATEMENTS: Atrial fibrillation with rapid ventricular response with frequent ventricular-paced complexes Septal infarct, age undetermined Marked ST abnormality, possible inferior subendocardial injury Abnormal ECG Compared to ECG 09/18/2022 09:19:53 Possible ischemia no longer present Myocardial infarct finding still present ST (T wave) deviation still present Electronically Signed On 09-21-22 17:52:09 CDT by Davion Gonzales
--- NOTE | 2022-09-21 17:57 | EKG ---
Test Date: 2022-09-18 Test Time: 09:19:53 Crane Follower: Meliza BECERRA MEASUREMENT RESULTS: Intervals: Rate: 108 [place]: QRSD: 82 QT: 278 QTc: 372 [place]: P: LA: QRS: 30 T: 268 INTERPRETIVE STATEMENTS: Atrial fibrillation with rapid ventricular response with frequent ventricular-paced complexes Septal infarct, age undetermined ST & T wave abnormality, consider inferior ischemia ST & T wave abnormality, consider anterolateral ischemia Abnormal ECG Compared to ECG 07/05/2014 08:35:47 Myocardial infarct finding now present ST (T wave) deviation now present Possible ischemia now present Ventricular premature complex(es) no longer present Electronically Signed On 09-21-22 17:52:12 CDT by Davion Gonzales
== END 2022-09-19 10:29 | disposition home or self-care (01) ==
LOC: ER 09:08 → ERHOLD 11:41 → INTOOBSV 11:41 → 2ND 16:47
PROVIDERS: ADMIT Internal Medicine; ATTEND Internal Medicine
DX: I48.0 Paroxysmal atrial fibrillation (principal); R53.1 Weakness; R00.2 Palpitations; I50.32 Chronic diastolic (congestive) heart failure; I10 Essential (primary) hypertension; E78.5 Hyperlipidemia, unspecified; M19.90 Unspecified osteoarthritis, unspecified site; G47.00 Insomnia, unspecified; R73.01 Impaired fasting glucose; Z95.0 Presence of cardiac pacemaker
CPT/HCPCS: 93306; 85025 ×2; 81001; 80048 ×2; 36415; 83735; 85610; 80076; 84443; 84484 ×2; 83880; 71045; 96372; 96374; 99285; J7030; 93005; G0378

== ENCOUNTER 2023-04-26 07:15 | Inpatient (IN) | payer OTHER ==
[2023-04-26] MEDS ORDERED: NA CHLORIDE 0.9% 1,000 ML ONE (08:19)
[2023-04-26] MEDS ORDERED: ONDANSETRON 4 MG/2 ML VIAL ONE ×2 (08:19→14:53)
[2023-04-26 08:27] LABS: Absolute Lymphocytes (CBC) 1.3 K/uL (0.7-4.9); Hematocrit 39.2 % (36.0-45.0); Lymphocytes % 17.9 % (15.3-44.8); MCV 96.8 fL (80-100); MPV 7.8 fL (7.6-11.3); Platelets 238 thou/uL (152-406); RBC Red Blood Cell Count 4.05 M/uL (3.86-4.86)
[2023-04-26 08:44] LABS: Albumin 3.3 g/dL (3.4-5.0); Bilirubin Total 0.5 mg/dL (0.2-1.0); Potassium 4.1 mEq/L (3.5-5.1); Protein, Total 6.6 g/dL (6.4-8.2)
[2023-04-26 08:49] LABS: SARS-CoV-2 Antigen Rapid Res Negative (Negative)
[2023-04-26 09:39] LABS: Specific Gravity > 1.030 (1.005-1.030); Urine Bacteria <20 /HPF (<20); Urine Bilirubin NEGATIVE (Negative); Urine Blood Negative (Negative); Urine Clarity Clear (Clear); Urine Color Yellow (Yellow); Urine Glucose NEGATIVE (Negative); Urine Mucus 1+ /HPF (None Seen); Urine Protein 1+ (Negative); Urine RBC <5 /HPF (None Seen); Urine Urobilinogen Normal (Normal); Urine pH 5.5 (5.0-7.0)
--- NOTE | 2023-04-26 09:42 | RAD REPORT ---
EXAM DESCRIPTION: CTAbdomen Pelvis W Contrast - 04/26/2023 9:18 am CLINICAL HISTORY: Abdominal pain. ABD PAIN COMPARISON: Abdomen Pelvis W Contrast dated 08/01/2020 TECHNIQUE: Biphasic CT imaging of the abdomen and pelvis was performed with 100 ml non-ionic IV cont rast. All CT scans are performed using dose optimization technique as appropriate and may include automated exposure control or mA/KV adjustment according to patient size. FINDINGS: Linear atelectasis is present in the left lung base.Trace right and small left pleural eff usion. The liver, spleen, pancreas, adrenal glands and kidneys are within normal limits. No bowel obstruction, free air, free fluid or abscess. The colon is decompressed and incompletely ass essed. Scattered diverticulosis. The appendix is normal. No evidence of significant lymphadenopathy. No suspicious bony findings. IMPRESSION: No acute intra-abdominal or pelvic finding. Small bilateral pleural effusions with atelectasis or mild infiltrate in the left base.
--- NOTE | 2023-04-26 12:53 | RAD REPORT ---
EXAM DESCRIPTION: RAD - Chest Single View - 04/26/2023 12:42 pm CLINICAL HISTORY: uri Chest pain. COMPARISON: Chest Single View dated 09/18/2022; Chest Pa And Lat (2 Views) dated 04/23/2022; CHEST SIN GLE VIEW dated 07/05/2014; CHEST SINGLE VIEW dated 07/02/2014 FINDINGS: Portable technique limits examination quality. Mild pulmonary edema is seen. The heart is moderately enlarged. Small bilateral pleural effusions. No displaced fractures.Multi lead pacer device. IMPRESSION: Mild CHF is possible.
--- NOTE | 2023-04-26 13:02 | EDPHYS ---
Physician Documentation [facility] Name: Radhika Paz Age: 83 yrs Sex: Female : 1940 Arrival Date: 04/26/2023 Time: 07:15 Bed 8 Private MD: Ortiz Woodard C ED Physician Patrick Allen HPI: 04/26 08:10 This 83 yrs old Female presents to ER via Ambulatory with complaints of ec2 Nausea, Diarrhea, Breathing Difficulty. 08:10 Patient arrives today for nausea and vomiting ongoing for 1 week. Also complains of ec2 painful urination. Patient reports no chest pain, no cough and cold symptoms, no difficulty breathing. Did complain of this to nursing however did not complain of this to me.. Historical: - Allergies: 07:40 No Known Allergies; iw - PMHx: 07:40 Atrial fibrillation; chronic back pain; Hypertension; Pacemaker; iw - PSHx: 07:40 Tonsillectomy; iw - Immunization history:: Adult Immunizations up to date. - Social history:: Smoking status: Patient denies any tobacco usage or history of. ROS: 08:11 Constitutional: as per hpi ec2 Exam: 08:11 Constitutional: GEN: NAD Head: atraumatic Eyes: EOMI Ears: External ears are ec2 normal. CV: regular rate LUNGS: no respiratory distress ABD: non-distended, soft, generally tender, no guarding, not rigid SKIN: no evidence of rashes MSK: no evidence of trauma NEURO: moves all extremities equally Vital Signs: 07:38 BP 126 / 69; Pulse 96; Resp 16; Temp 97; Pulse Ox 93% ; Weight 63.5 kg; Height 5 ft. 8 iw in. ; Pain 0/10; 09:36 BP 143 / 95; Pulse 109; Resp 17 S; Pulse Ox 97% on R/A; kc6 10:27 BP 140 / 83; Pulse 95; Resp 18 S; Pulse Ox 98% on R/A; kc6 11:48 BP 145 / 75; Pulse 97; Resp 18 S; Pulse Ox 96% on R/A; kc6 15:02 BP 114 / 64; Pulse 100; Resp 22; Pulse Ox 98% on 2 lpm NC; ap3 16:12 BP 136 / 77; Pulse 94; Resp 20; Pulse Ox 96% on 2 lpm NC; nj1 07:38 Body Mass Index 21.29 (63.50 kg, 172.72 cm) iw 07:38 Pain Scale: Adult iw MDM: 08:07 Patient medically screened. ec2 08:11 Data reviewed: vital signs. ED course: Patient arrives today for evaluation of nausea ec2 and vomiting along with urinary symptoms. Will obtain lab work, urine studies, CT abdomen pelvis, give the patient crystalloid and Zofran.. 09:17 ED course: CBC is reassuring, metabolic profile shows renal dysfunction with a ec2 creatinine of 1.22 and GFR 44. Flu and COVID testing negative. . 10:17 ED course: Urine is remarkable for some leuk esterase and WBCs present. CT abdomen ec2 pelvis shows no acute intra-abdominal process, does show bilateral pleural effusions, will obtain a dedicated chest x-ray. CBC is unremarkable. . 11:49 ED course: Pending chest x-ray, called radiology to perform imaging. . 2 04/26 08:10 Order name: CBC with Diff; Complete Time: 09:17 ec2 04/26 08:10 Order name: CMP; Complete Time: 09:17 ec2 04/26 08:10 Order name: Lipase; Complete Time: 09:17 ec2 04/26 08:10 Order name: Urinalysis w/ reflexes; Complete Time: 10:17 ec2 04/26 08:11 Order name: SARS RAPID; Complete Time: 09:17 ec2 04/26 08:11 Order name: Influenza Screen (a \T\ B); Complete Time: 09:17 2 04/26 09:43 Order name: Urine Culture EDOH 04/26 13:03 Order name: BNP ec2 04/26 13:09 Order name: Urinalysis w/ reflexes EDOH 04/26 08:10 Order name: CT Abd/Pelvis - IV Contrast Only; Complete Time: 10:17 ec2 04/26 10:17 Order name: CXR XRAY; Complete Time: 12:56 ec2 04/26 08:10 Order name: IV Saline Lock; Complete Time: 08:13 ec2 04/26 08:10 Order name: Labs collected and sent; Complete Time: 08:13 ec2 Administered Medications: 08:39 Drug: NS 0.9% IV 1000 ml IV at 1 bolus Per protocol; 1000 mL bolus Route: IV; Rate: 1 kc6 bolus; Site: right antecubital; 11:49 Follow up: Response: No adverse reaction; IV Status: Completed infusion; IV Intake: kc6 1000ml 08:39 Drug: Ondansetron IVP 4 mg IVP once; over 2 minutes Route: IVP; Site: right antecubital;kc6 11:49 Follow up: Response: No adverse reaction; Nausea is decreased kc6 14:17 Drug: Rocephin IV 1 grams IV at calculated rate once; Given slow IV push per pharmacy ap3 instructions Route: IV; Rate: calculated rate; Site: right antecubital; 14:20 Follow up: Response: No adverse reaction; IV Status: Completed infusion; IV Intake: [id number] 14:21 Drug: AZITHromycin IVPB 500 mg IVPB once over 1 hrs; (mix in 250 mL NS) Route: IVPB; ap3 Infused Over: 1 hrs; Site: right antecubital; 14:57 Drug: Ondansetron IVP 4 mg IVP once; over 2 minutes Route: IVP; Site: right antecubital;ap3 Disposition Summary: 04/26/23 13:01 Hospitalization Ordered Notes: Hospitalization Status: Inpatient Admission ec2 Provider: Ortiz Woodard ec2 Condition: Stable ec2 Problem: new ec2 Symptoms: are unchanged ec2 Bed/Room Type: Standard ec2 Location: Telemetry/MedSurg (Inpatient)(04/26/23 14:48) bd Room Assignment: 224(04/26/23 14:48) bd Diagnosis - Dyspnea, unspecified ec2 Forms: - Medication Reconciliation Form ec2 - SBAR form ec2 - Leadership Thank You Letter ec2 Signatures: Dispatcher [employer] EDMS Denice Patiño Irene, RN RN iw Prokisch, Amanda, RN RN ap3 Gabby Cardoza RN RN kc6 Bradberry, Kelly, RN RN [place]3 Patrick Allen MD MD ec2 Corrections: (The following items were deleted from the chart) 13:59 13:01 Telemetry/MedSurg (Inpatient) ec2 kb3 13:59 13:01 ec2 kb3 14:48 13:59 [facility] ER HOLD kb3 bd 14:48 13:59 ERHOLD- kb3 bd
--- NOTE | 2023-04-26 13:02 | ER ---
Nurse's Notes [facility] Name: Radhika Paz Age: 83 yrs Sex: Female : 1940 Arrival Date: 04/26/2023 Time: 07:15 Bed 8 Private MD: Ortiz Woodard C Diagnosis: Dyspnea, unspecified Presentation: 04/26 07:38 Chief complaint: Patient states: diarrhea, can hardly breathe and my chest rattles, has iw been an ongoing issue for a couple weeks, she was going to Dr. Woodard'konrad this morning but she felt worse, she also feels nauseous but can't vomit, four episodes of diarrhea this morning , denies abd pain. Coronavirus screen: Client presents with at least one sign or symptom that may indicate coronavirus-19. Ebola Screen: Patient negative for fever greater than or equal to 101.5 degrees Fahrenheit, and additional compatible Ebola Virus Disease symptoms Patient denies exposure to infectious person. Patient denies travel to an Ebola-affected area in the 21 days before illness onset. No symptoms or risks identified at this time. Initial Sepsis Screen: Does the patient meet any 2 criteria?. Initial Sepsis Screen: Does the patient have a suspected source of infection?. Risk Assessment: Do you want to hurt yourself or someone else? Patient reports no desire to harm self or others. Onset of symptoms was April 12, 2023. 07:38 Method Of Arrival: Ambulatory iw 07:38 Acuity: AMADOU 3 iw Historical: - Allergies: 07:40 No Known Allergies; iw - PMHx: 07:40 Atrial fibrillation; chronic back pain; Hypertension; Pacemaker; iw - PSHx: 07:40 Tonsillectomy; iw - Immunization history:: Adult Immunizations up to date. - Social history:: Smoking status: Patient denies any tobacco usage or history of. Screenin:45 [facility] ED Fall Risk Assessment (Adult) History of falling in the last 3 months, kc6 including since admission No falls in past 3 months (0 pts) Confusion or Disorientation No (0 pts) Intoxicated or Sedated No (0 pts) Impaired Gait No (0 pts) Mobility Assist Device Used No (0 pt) Altered Elimination No (0 pt) Score/Fall Risk Level 0 - 2 = Low Risk. Abuse screen: Denies threats or abuse. Denies injuries from another. Nutritional screening: No deficits noted. Tuberculosis screening: No symptoms or risk factors identified. Assessment: 07:45 General: Appears in no apparent distress. comfortable, well groomed, well developed, kc6 Behavior is calm, cooperative, appropriate for age. Pain: Denies pain. Neuro: Level of Consciousness is awake, alert, obeys commands, Oriented to person, place, time, situation, Appropriate for age. Cardiovascular: Denies chest pain, Heart tones S1 S2 present Capillary refill < 3 seconds. Respiratory: Reports shortness of breath Airway is patent Trachea midline Respiratory effort is even, unlabored, Respiratory pattern is regular, symmetrical. GI: Abdomen is flat, non-distended, Bowel sounds present X 4 quads. Abd is soft and non tender X 4 quads. Reports diarrhea, nausea, Patient currently denies vomiting. : No signs and/or symptoms were reported regarding the genitourinary system. EENT: No signs and/or symptoms were reported regarding the EENT system. Derm: No signs and/or symptoms reported regarding the dermatologic system. Skin is intact, is healthy with good turgor, Skin is pale. Musculoskeletal: No signs and/or symptoms reported regarding the musculoskeletal system. Circulation, motion, and sensation intact. Capillary refill < 3 seconds, Range of motion: intact in all extremities. 08:45 Reassessment: Patient appears in no apparent distress at this time. No changes from kc6 previously documented assessment. Patient and/or family updated on plan of care and expected duration. Pain level reassessed. Patient is alert, oriented x 3, equal unlabored respirations, skin warm/dry/pink. 09:45 Reassessment: Patient appears in no apparent distress at this time. No changes from kc6 previously documented assessment. Patient and/or family updated on plan of care and expected duration. Pain level reassessed. Patient is alert, oriented x 3, equal unlabored respirations, skin warm/dry/pink. 10:45 Reassessment: Patient appears in no apparent distress at this time. No changes from kc6 previously documented assessment. Patient and/or family updated on plan of care and expected duration. Pain level reassessed. Patient is alert, oriented x 3, equal unlabored respirations, skin warm/dry/pink. 11:45 Reassessment: Patient appears in no apparent distress at this time. No changes from kc6 previously documented assessment. Patient and/or family updated on plan of care and expected duration. Pain level reassessed. Patient is alert, oriented x 3, equal unlabored respirations, skin warm/dry/pink. 14:55 Reassessment: Patient appears in no apparent distress at this time. Patient is alert, ap3 oriented x 3, equal unlabored respirations, skin warm/dry/pink. GI: Reports nausea. 15:02 Reassessment: unsuccessful attempt to call report. "rooms have not been assigned" they ap3 will call back for report. 15:51 Reassessment: unsuccessful attempt to call report at this time. nurse unavailable. ap3 16:13 Reassessment: Patient appears in no apparent distress at this time. Patient and/or nj1 family updated on plan of care and expected duration. Pain level reassessed. Patient is alert, oriented x 3, equal unlabored respirations, skin warm/dry/pink. Reassessment: unsuccessful attempt to call report at this time. nurse busy working on an ED admission, she will call back when available. GI: Reports nausea. Vital Signs: 07:38 BP 126 / 69; Pulse 96; Resp 16; Temp 97; Pulse Ox 93% ; Weight 63.5 kg; Height 5 ft. 8 iw in. ; Pain 0/10; 09:36 BP 143 / 95; Pulse 109; Resp 17 S; Pulse Ox 97% on R/A; kc6 10:27 BP 140 / 83; Pulse 95; Resp 18 S; Pulse Ox 98% on R/A; kc6 11:48 BP 145 / 75; Pulse 97; Resp 18 S; Pulse Ox 96% on R/A; kc6 15:02 BP 114 / 64; Pulse 100; Resp 22; Pulse Ox 98% on 2 lpm NC; ap3 16:12 BP 136 / 77; Pulse 94; Resp 20; Pulse Ox 96% on 2 lpm NC; nj1 07:38 Body Mass Index 21.29 (63.50 kg, 172.72 cm) iw 07:38 Pain Scale: Adult iw ED Course: 07:18 Patient arrived in ED. rg4 07:18 Ortiz Woodard MD is Private Physician. rg4 07:40 Triage completed. iw 07:41 Arm band placed on. iw 07:50 Gabby Cardoza, ARON is Primary Nurse. kc6 07:53 Allen, Patrick, MD is Attending Physician. ec2 08:04 Patient has correct armband on for positive identification. Placed in gown. Bed in low kc6 position. Call light in reach. Side rails up X2. Adult w/ patient. Client placed on continuous cardiac and pulse oximetry monitoring. NIBP monitoring applied. monitoring engineer on. 08:04 Inserted saline lock: 20 gauge in right antecubital area, using aseptic technique. kc6 Blood collected. Patient maintains SpO2 saturation greater than 95% on room air. 09:19 CT Abd/Pelvis - IV Contrast Only In Process Unspecified. EDMS 10:00 Oxygen administration via nasal cannula \\T\\ 2L/min. nj1 12:04 Primary Nurse role handed off by Gabby Cardoza, ARON bp 12:04 August Nagy, ARON is Primary Nurse. bp 12:44 CXR XRAY In Process Unspecified. EDMS 13:01 Ortiz Woodard MD is Hospitalizing Provider. ec2 16:30 Provided Education on: medication administration. nj1 16:42 No provider procedures requiring assistance completed. Patient admitted, IV remains in nj1 place. Administered Medications: 08:39 Drug: NS 0.9% IV 1000 ml IV at 1 bolus Per protocol; 1000 mL bolus Route: IV; Rate: 1 kc6 bolus; Site: right antecubital; 11:49 Follow up: Response: No adverse reaction; IV Status: Completed infusion; IV Intake: kc6 1000ml 08:39 Drug: Ondansetron IVP 4 mg IVP once; over 2 minutes Route: IVP; Site: right antecubital;kc6 11:49 Follow up: Response: No adverse reaction; Nausea is decreased kc6 14:17 Drug: Rocephin IV 1 grams IV at calculated rate once; Given slow IV push per pharmacy ap3 instructions Route: IV; Rate: calculated rate; Site: right antecubital; 14:20 Follow up: Response: No adverse reaction; IV Status: Completed infusion; IV Intake: [id number] 14:21 Drug: AZITHromycin IVPB 500 mg IVPB once over 1 hrs; (mix in 250 mL NS) Route: IVPB; ap3 Infused Over: 1 hrs; Site: right antecubital; 14:57 Drug: Ondansetron IVP 4 mg IVP once; over 2 minutes Route: IVP; Site: right antecubital;ap3 Medication: 16:44 VIS not applicable for this client. nj1 Intake: 11:49 IV: 1000ml; Total: 1000ml. kc6 14:20 IV: 10ml; Total: 1010ml. ap3 Outcome: 13:01 Decision to Hospitalize by Provider. ec2 16:43 Admitted to Med/surg accompanied by nurse, via wheelchair, room 224, Report called to dex Clinton RN 16:43 Condition: stable 16:43 Instructed on the need for admit, 17:10 Patient left the ED. nj1 Signatures: Dispatcher [employer] EDOsiris Daily, RN RN Julianna Ac rg4 August Nagy, RN RN Waleska Yan RN RN olga3 Gabby Cardoza RN RN kc6 Dotty Solano RN RN nj1 Patrick Allen MD MD ec2
[2023-04-26] MEDS ORDERED: ACETAMINOPHEN 500 MG TAB PO PRN (13:04)
[2023-04-26] MEDS ORDERED: ONDANSETRON 4 MG/2 ML VIAL IV PRN (13:04)
[2023-04-26] MEDS ORDERED: AZITHROMYCIN 500 MG INJ IVPB ONE (13:38)
[2023-04-26] MEDS ORDERED: CEFTRIAXONE 1000 MG/VIAL ONE (13:38)
[2023-04-26] MEDS ORDERED: NA CHLORIDE 0.9% 250 ML ONE (13:39)
[2023-04-26] MEDS ORDERED: PROMETHAZINE INJ 25 MG/ML AMP IV PRN (16:19)
[2023-04-26] MEDS ORDERED: SOTALOL HCL 80 MG TAB PO ONE (18:24)
--- NOTE | 2023-04-26 18:42 | CON ---
Date of Consultation: 04/26/2023 Reason For Consultation: Shortness of breath. History Of Present Illness: An 83-year-old female with history of paroxysmal atrial fibrillation, hy pertension, and a pacemaker in place, presented with diarrhea and nausea as well as shortness of liv th. At night, she will wake up short of breath. Denies having lower extremity edema. No chest pain . No other complaints. Past Medical History: As outlined above in the HPI. Medications: Refer to reconciliation sheet for detailed list. Allergies: NO KNOWN DRUG ALLERGIES. Family History: No premature coronary artery disease or cancer. Social History: She does not smoke or drink. Does not use any drugs. Review of Systems: All systems reviewed and they were negative except what mentioned in HPI. Physical Examination: Vital Signs: Reviewed. Head and Neck: Pupils are equal, reactive to light. Intact eye movements. No JVD. No cervical lym phadenopathy. Neck is supple. Thyroid is not enlarged. Lungs: Clear to auscultation bilaterally. No rhonchi, wheezing, or crackles. No accessory muscle u se. Heart: Irregularly irregular. No extra sounds. Abdomen: Soft, nontender. Bowel sounds positive. No organomegaly. No masses or hernia. No rigidi ty or rebound. Extremities: No edema, clubbing, or cyanosis. Intact pulses. Skin: No rash. Neurologic: Alert, awake, oriented x3. No acute focal deficits appreciated. Investigations: Hemoglobin 13.1. BUN is 24, creatinine 1.22, and NT-proBNP is 7026. Assessment And Recommendations: 1.Shortness of breath, probably in part due to diastolic heart failure. She has severe diastolic dy sfunction. She appears to be euvolemic right now, lying flat. I recommend blood pressure control fo r now and atrial fibrillation control. See below. 2.Atrial fibrillation with rapid ventricular response. Recommend start her on sotalol 80 mg twice a day and after the third dose to get an EKG to check QTc interval and to continue stroke prevention lina Donaldson or Neida. Thank you for the consult. /HARJEET Voice ID: [id number] Report ID: [id number]
[2023-04-26] MEDS: GABAPENTIN 300 MG CAP PO SCH (21:45)
[2023-04-26] MEDS: ALPRAZOLAM 0.25 MG TABLET PO PRN (21:45)
[2023-04-26] MEDS: APIXABAN 5 MG TABLET PO SCH (21:45)
[2023-04-26] MEDS: ATORVASTATIN 10 MG TAB PO SCH (21:46)
[2023-04-27] MEDS: SOTALOL HCL 80 MG TAB PO SCH ×2 (05:22→17:45)
[2023-04-27] MEDS: LEVOTHYROXINE SOD 0.088 MG TAB PO SCH (05:22)
[2023-04-27 06:12] VITALS: BMI 24.1
--- NOTE | 2023-04-27 07:00 | HP ---
Date of Admission: 04/26/2023 Chief Complaint: Feeling weak, tired and short of breath. History Of Present Illness: This is an 83-year-old pleasant female patient came into emergency room with about 1-week history of not feeling good at all and says she feels very weak, tired, and gets sh ort of breath easily. Denies any fever. Has had some dry cough, but not coughing up any mucus. Den ies any sore throat. No vomiting, diarrhea. No chest pain. After she was evaluated in the emergenc y room, she was admitted to the hospital with congestive heart failure and atrial fibrillation with r apid ventricular rate problem. Cardiology consultation has been obtained from Dr. Gonzales. When I sa w her, she was not in any distress and lying in bed. Allergies: NO KNOWN ALLERGIES. Medications: Amlodipine 5 mg daily in morning, Eliquis 5 mg 2 times a day, atorvastatin 10 mg daily at bedtime, estrogen vaginal cream, folic acid 0.4 mg daily, gabapentin 300 mg daily at bedtime, levo cetirizine 5 mg daily as needed for allergies, levothyroxine 88 mcg daily, metoprolol tartrate 50 mg 2 times a day and propafenone 325 mg 2 times a day. Review of Systems: Cardiovascular: As mentioned above. Constitutional: As mentioned above. All other systems reviewed and negative. Past Medical History: Significant for allergic rhinitis, hypothyroidism, impaired fasting glucose, h ypertension, mixed hyperlipidemia, paroxysmal atrial fibrillation, diverticulosis, chronic kidney dis ease, stage III. Overactive bladder, osteoarthritis at multiple sites, insomnia and depression. Past Surgical History: Tonsillectomy, pacemaker placement, hysterectomy, and back surgery. Family History: Parents with old age. Details unknown. Sister has hypertension and atrial fib rillation. Social History: Negative for smoking. Use of alcohol occasional. Physical Examination: VITAL SIGNS: Temperature 97, pulse 96, respiratory rate 16, blood pressure 126/69, oxygen saturation 93%. Height 5 feet 8 inches, weight 140 pounds. General: Awake, alert, oriented, not in distress. HEENT: Head atraumatic, normocephalic. Conjunctivae nonerythematous. Sclerae white. Mouth, no thr ush or edema noted. Ears/Nose, no mass, lesion, discharge noted. Neck: Supple. No JVD, lymph nodes, bruit, thyromegaly noted. Lungs: Presence of very fine rales noted in lower half of both lung mcdonald. Not using any accessory muscles of respiration. Heart: Heart rate is rapid and irregularly irregular. Abdomen: Soft, bowel sounds normal. No guarding, rigidity, tenderness, mass, hepatosplenomegaly, dis tention, or bruit noted. Extremities: Very trace bilateral leg edema. Skin: No rash, ulcer, cellulitis. Lymphatics: No lymph node enlargement in neck, supraclavicular, infraclavicular region. Neuro: No focal neurological deficit. Chest: Unremarkable. External Genitalia: Deferred. Rectal: Deferred. Laboratory Data: White count 7.4, hemoglobin 13.1, platelets 238. Sodium 141, potassium 4.1, chlori de 111, bicarb 25, BUN 24, creatinine 1.22, glucose 115. AST 75, ALT 113. ProBNP 7026. Lipase 35. Urinalysis shows leukocyte esterase 250, WBC 10-20. Urinalysis was unremarkable. COVID-19 test neg ative. Chest x-ray shows increased lung markings in both lung mcdonald. Impression: 1.Congestive heart failure. 2.Atrial fibrillation, paroxysmal, with rapid ventricular rate. 3.Hypertension. 4.Mixed hyperlipidemia. 5.Hypothyroidism. 6.Allergic rhinitis. 7.Impaired fasting glucose. Plan: We will go ahead and admit the patient to the hospital for further evaluation and management o f this problem. Patient is appropriate for inpatient and is expected to spend 2 midnights in the [facility]. Consult director of placement, Dr. Gonzales, who has evaluated the patient and started her on sotalol. She takes Eliquis 5 mg 2 times a day at home. We will continue that. For her hypertension, she is o n metoprolol. We will monitor her blood pressure and then decide about appropriate antihypertensive medication while in the hospital. For hyperlipidemia, we will continue her statin therapy. For hypo thyroidism, we will continue her levothyroxine. No need for further intervention. Order echo with Meryl guidry on her and I will see her tomorrow for followup. For her congestive heart failure problem, I suspect it is due to diastolic dysfunction and we will go ahead and use diuretic therapy per order. WARD/MODL Voice ID: [id number]
[2023-04-27 07:06] LABS: Albumin 2.9 g/dL (3.4-5.0); Bilirubin Total 1.1 mg/dL (0.2-1.0); Potassium 3.8 mEq/L (3.5-5.1); Protein, Total 5.9 g/dL (6.4-8.2); Thyroid Stimulating Hormone 2.81 uIU/mL (0.358-3.740); Troponin High Sensitivity 16.8 pg/mL (<58.9)
[2023-04-27] MEDS ORDERED: POTASSIUM CL SA 10 MEQ TAB PO ONE (07:13)
[2023-04-27] MEDS ORDERED: FUROSEMIDE 20 MG/ 2ML VIAL IV ONE (07:13)
[2023-04-27] MEDS: AMLODIPINE 5 MG TAB PO SCH (10:06)
[2023-04-27] MEDS: APIXABAN 5 MG TABLET PO SCH ×2 (10:06→21:10)
--- NOTE | 2023-04-27 20:36 | PN ---
Date of Progress Note: 04/27/2023 Subjective: Seen by bedside. Doing clinically well, but her heart rate is running fast. Started on sotalol yesterday and she is still in atrial fibrillation with rapid ventricular response. Review of Systems: No chest pain, shortness of breath, orthopnea, or cough. No nausea, vomiting, or diarrhea. All othe r systems were reviewed, they were negative. Objective: Vital Signs: Reviewed. Head and Neck: Pupils are equal, reactive to light. Intact eye movements. No JVD. No cervical lym phadenopathy. Neck is supple. Thyroid is not enlarged. Lungs: Clear to auscultation bilaterally. No rhonchi, wheezing, or crackles. No accessory muscle u se. Heart: Regular rate and rhythm. No extra sounds. Abdomen: Soft, nontender. Bowel sounds positive. No organomegaly. No masses or hernia. No rigidi ty or rebound. Extremities: No clubbing or cyanosis. Intact pulses. Skin: No rash or nodule. Neurologic: Alert, awake, oriented x3. No acute focal deficits appreciated. Lymph Nodes: No cervical or axillary lymphadenopathy. Investigations: Labs were reviewed. Assessment And Recommendations: 1.Atrial fibrillation with rapid ventricular response still. She was started on sotalol. Tonight i s her third dose. By tomorrow, if she continues to be in atrial fibrillation, we will do a NESTOR-guide d cardioversion. Continue sotalol and Eliquis. 2.Acute on chronic congestive heart failure exacerbation. Received Lasix 1 dose and she seems to be euvolemic now. Continue current therapy. 3.Dyslipidemia. Continue statin. SR/MODL Voice ID: [id number] Report ID: [id number]
[2023-04-27] MEDS: ALPRAZOLAM 0.25 MG TABLET PO PRN (21:10)
[2023-04-27] MEDS: GABAPENTIN 300 MG CAP PO SCH (21:10)
[2023-04-27] MEDS: ATORVASTATIN 10 MG TAB PO SCH (21:10)
--- NOTE | 2023-04-27 21:21 | PN ---
Date of Progress Note: 04/27/2023 Subjective: The patient was seen this morning for followup. No new complaints or problems reported by the patient. She was lying in bed, not in distress. She slept very well. Denies any new complai nts this morning. Objective: Vital Signs: Reviewed. HEENT: Unremarkable. Lungs: Clear to auscultation except minimal rales noted in lower lung mcdonald, better than yesterday. Heart: Sounds normal. Abdomen: Soft. Bowel sounds normal. No guarding, rigidity, tenderness, distention. Extremities: No leg edema. Laboratory Data: Sodium 143, potassium 3.8, chloride 113, bicarb 25, BUN 15, creatinine 1.01, glucos e 82. Impression: 1.Atrial fibrillation with rapid ventricular rate, paroxysmal. 2.Hypertension. 3.Chronic anticoagulation therapy. 4.Congestive heart failure. Plan: We will go ahead and continue sotalol 80 mg twice a day. Continue to follow with jewel stringer . Continue Eliquis and we will get echo with Doppler today. Lasix 20 mg IV daily will be given and I will see her tomorrow for followup, possible discharge to go home tomorrow. WARD/MODL Voice ID: [id number] Report ID: [id number]
[2023-04-28] MEDS: LEVOTHYROXINE SOD 0.088 MG TAB PO SCH (05:50)
[2023-04-28] MEDS: SOTALOL HCL 80 MG TAB PO SCH ×2 (05:50→17:49)
--- NOTE | 2023-04-28 06:48 | ECHO ---
HEIGHT: 5 ft 8 in WEIGHT: 158 lb 14.4 oz DATE OF STUDY: 04/27/[address]: Ilan Woodard MD 2-DIMENSIONAL: YES M.MODE: YES DOPPLER: YES COLOR FLOW: YES TDS: PORTABLE: YES DEFINITY: BUBBLE STUDY: DIAGNOSIS: CONGESTIVE HEART FAILURE CARDIAC HISTORY: CATHERIZATION: NO SURGERY: NO PROSTHETIC VALVE: NO PACEMAKER: YES MEASUREMENTS (cm) DIASTOLIC (NORMALS) SYSTOLIC (NORMALS) IVSd 1.1 (0.6-1.2) LA Diam 4.3 (1.9-4.0) LVEF 77% LVIDd 3.2 (3.5-5.7) LVIDs 1.8 (2.0-3.5) %FS 44% LVPWd 1.0 (0.6-1.2) Ao Diam 3.0 (2.0-3.7) 2 DIMENSIONAL ASSESSMENT: RIGHT ATRIUM: NORMAL LEFT ATRIUM: ENLARGED RIGHT VENTRICLE: NORMAL LEFT VENTRICLE: LEFT VENTRICULAR HYPERTROPHY TRICUSPID VALVE: MODERATE TO SEVERE TRICUSPID REGURGITATION MITRAL VALVE: MODERATE MITRAL REGURGITATION PULMONIC VALVE: MILD PULMONIC INSUFFICIENCY AORTIC VALVE: MODERATE AORTIC INSUFFICIENCY PERICARDIAL EFFUSION: NONE AORTIC ROOT: NORMAL LEFT VENTRICULAR WALL MOTION: NORMAL DOPPLER/COLOR FLOW: SEE BELOW COMMENTS: 1. NORMAL LEFT VENTRICULAR EJECTION FRACTION 60-65% WITH NORMAL WALL MOTION 2. SEVERE DIASTOLIC DYSFUNCTION 3. LEFT ATRIAL ENLARGEMENT 4. MODERATE TO SEVERE TRICUSPID REGURGITATION 5. MODERATE CONCENTRIC LEFT VENTRICULAR HYPERTROPHY 6. MODERATE AORTIC INSUFFICIENCY 7. MODERATE MITRAL REGURGITATION TECHNOLOGIST: JOSE DARBY
[2023-04-28] MEDS: AMLODIPINE 5 MG TAB PO SCH (08:40)
[2023-04-28] MEDS: APIXABAN 5 MG TABLET PO SCH ×2 (08:41→20:49)
--- NOTE | 2023-04-28 17:28 | EKG ---
Test Date: 2023-04-26 Test Time: 07:57:05 Salesperson [employer]: RAMIREZ MEASUREMENT RESULTS: Intervals: Rate: 105 [place]: QRSD: 94 QT: 360 QTc: 475 [place]: P: OK: QRS: 85 T: -81 INTERPRETIVE STATEMENTS: Demand pacemaker, interpretation is based on intrinsic rhythm Atrial fibrillation with premature ventricular or aberrantly conducted complexes Septal infarct, age undetermined Marked ST abnormality, possible inferior subendocardial injury Abnormal ECG Compared to ECG 09/18/2022 09:20:28 Ventricular premature complex(es) now present Myocardial infarct finding still present ST (T wave) deviation still present Electronically Signed On 04-28-23 17:23:59 ACADEMIC PROGRAM SPECIALIST by Davion Gonzales
--- NOTE | 2023-04-28 19:53 | PN ---
Date of Progress Note: 04/28/2023 Subjective: The patient was seen this morning for followup. She was lying in bed, not in distress. She slept very well last night and this morning she denies any new complaints. No chest pain. No s hortness of breath. Objective: Vital Signs: Reviewed. HEENT: Unremarkable. Lungs: Clear to auscultation. No wheezing. No rales. Heart: Sounds normal. Abdomen: Soft. Bowel sounds normal. No guarding, rigidity, tenderness, distention. Extremities: No leg edema. Laboratory Data: Echocardiogram results reviewed. The patient's ejection fraction is normal, but hughes s severe diastolic dysfunction. Impression: 1.Paroxysmal atrial fibrillation, with rapid ventricular rate. 2.Chronic anticoagulation therapy. 3.Chronic diastolic heart failure, with acute exacerbation. Plan: The patient currently does not have any evidence of volume overload. She did receive diuretic therapy and there is no need to continue it at this point. I will re-evaluate her tomorrow. Cardio logist Dr. Gonzales is planning to do transesophageal echo and cardioversion. The patient remains on s otalol and Eliquis. I will see her tomorrow for followup. WARD/MODL Voice ID: [id number] Report ID: [id number]
[2023-04-28] MEDS: ATORVASTATIN 10 MG TAB PO SCH (20:49)
[2023-04-28] MEDS: GABAPENTIN 300 MG CAP PO SCH (20:49)
[2023-04-28] MEDS: ALPRAZOLAM 0.25 MG TABLET PO PRN (21:57)
[2023-04-29] MEDS: LEVOTHYROXINE SOD 0.088 MG TAB PO SCH (05:43)
[2023-04-29] MEDS: SOTALOL HCL 80 MG TAB PO SCH ×2 (05:43→17:25)
[2023-04-29] MEDS: AMLODIPINE 5 MG TAB PO SCH (09:34)
[2023-04-29] MEDS: APIXABAN 5 MG TABLET PO SCH ×2 (09:34→20:57)
[2023-04-29] MEDS ORDERED: METOPROLOL TAR 25 MG TAB PO SCH (09:42)
[2023-04-29] MEDS ORDERED: ATROPINE SULF 1 MG/10 ML SYR IV ONE (11:13)
[2023-04-29] MEDS ORDERED: METOPROLOL TARTRATE 5 MG/5 ML INJ IV ONE (11:13)
[2023-04-29] MEDS ORDERED: HYDRALAZINE HCL 20 MG/ML VIAL ONE (11:14)
[2023-04-29] MEDS ORDERED: NA CHLORIDE 0.9% 500 ML ONE (11:46)
[2023-04-29] MEDS ORDERED: propofoL 200 MG/20 ML VIAL IV ONE (11:51)
[2023-04-29] MEDS ORDERED: LIDOCAINE 1% MPF 5 ML VIAL ONE ×2 (11:51→11:52)
--- NOTE | 2023-04-29 16:17 | OP ---
Date of Procedure: 04/29/2023 Surgeon: CHRIS RAYGOZA Procedures Performed: 1.Transesophageal echocardiogram. 2.Electrical cardioversion into normal sinus rhythm using synchronized 200 joules. Indication: Atrial fibrillation with rapid ventricular response. Description Of Procedure: After risks, benefits, alternatives were explained, patient agreed to proc edure and signed informed consent. The patient was brought to the Endo suite 3. After proper time-o ut, deep sedation was applied by Anesthesia using propofol and NESTOR probe was inserted. There was no thrombus in left atrial appendage. Then, NESTOR probe was removed and synchronized 200 joule electrical cardioversion was performed, successfully converting the rhythm into a normal sinus rhythm. Conclusion: Successful NESTOR-guided electrical cardioversion into normal sinus rhythm. SR/MODL Voice ID: [id number] Report ID: [id number]
--- NOTE | 2023-04-29 16:24 | EKG ---
Test Date: 2023-04-29 Test Time: 12:05:21 Wood Fence Installer: CARLOS ENRIQUE MEASUREMENT RESULTS: Intervals: Rate: 69 AR: 222 QRSD: 82 QT: 418 QTc: 447 [place]: P: 66 AR: 222 QRS: -29 T: -76 INTERPRETIVE STATEMENTS: Sinus rhythm with 1st degree AV block ST & T wave abnormality, consider inferior ischemia ST & T wave abnormality, consider anterolateral ischemia Abnormal ECG Compared to ECG 04/26/2023 07:57:05 First degree AV block now present Possible ischemia now present Ventricular-paced complex(es) or rhythm no longer present Atrial fibrillation no longer present Ventricular premature complex(es) no longer present Myocardial infarct finding no longer present ST (T wave) deviation still present Electronically Signed On 04-29-23 16:23:48 COUNTER INTELLIGENCE by Davion Gonzales
--- NOTE | 2023-04-29 19:23 | PN ---
Date of Progress Note: 04/29/2023 Subjective: Seen by bedside, doing clinically well. Review of Systems: No chest pain. No shortness of breath. Still in atrial fibrillation. Heart rate is in the low 100s . No dysuria, polyuria, urinary urgency. All other systems reviewed, they are negative. Objective: Vital signs: Reviewed. Head and Neck: Pupils are equal, reactive to light. Intact eye movements. No JVD. No cervical lym phadenopathy. Neck is supple. Thyroid is not enlarged. Lungs: Clear to auscultation bilaterally. No rhonchi, rales, or crackles. No accessory muscle use. Heart: Irregularly irregular. No sounds. Abdomen: Soft, nontender. Bowel sounds positive. No organomegaly. No masses or hernia. No rigidi ty or rebound. Extremities: No clubbing, cyanosis. Intact pulses. Skin: No rashes. Neuro: Alert, awake, oriented x3. No acute focal deficit appreciated. Lymph nodes: No cervical or axillary lymphadenopathy. Investigations: Labs reviewed. Assessment/recommendation: 1.Atrial fibrillation with rapid ventricular response, still running fast. We did a NESTOR guided card ioversion today, converted to sinus rhythm. Continue sotalol and Eliquis and please obtain an EKG to evaluate QTc interval. 2.Acute on chronic heart failure exacerbation, doing well. Appears to be euvolemic. Cardiology will sign off on the case and we will plan to see her as an outpatient w alma delia 4 weeks postdischarge. SR/MODL Voice ID: [id number] Report ID: [id number]
[2023-04-29] MEDS: ATORVASTATIN 10 MG TAB PO SCH (20:57)
[2023-04-29] MEDS: GABAPENTIN 300 MG CAP PO SCH (20:57)
[2023-04-29] MEDS: ALPRAZOLAM 0.25 MG TABLET PO PRN (20:57)
[2023-04-30 04:39] VITALS: O2SAT 92
[2023-04-30] MEDS: LEVOTHYROXINE SOD 0.088 MG TAB PO SCH (05:33)
[2023-04-30] MEDS: SOTALOL HCL 80 MG TAB PO SCH (05:33)
--- NOTE | 2023-04-30 08:01 | TEE ---
TRANSESOPHAGEAL ECHOCARDIOGRAM REPORT CARDIOLOGY DEPARTMENT DATE OF STUDY: 04/29/2023 HEIGHT: 5'8 WEIGHT: 158 DIAGNOSIS: ATRIAL FIBRILLATION, CARDIOVERSION HANDLING TECH COMMENTS: CARDIAC HISTORY: CATHERIZATION: SURGERY: PROSTHETIC VALVE: PACEMAKER: EJECTION FRACTION: 55-60% % COMMENTS: 1. NESTOR PROBE WAS INSERTED WITH NO DIFFICULTY. 2. NORMAL LEFT VENTRICULAR EJECTION FRACTION 55-60%. 3. NO LEFT ATRIAL APPENDAGE THROMBUS IS SEEN. 4. MODERATE MITRAL REGURGITATION. 5. MODERATE AORTIC REGURGITATION. TECHNOLOGIST: SOFIE BO
[2023-04-30] MEDS: AMLODIPINE 5 MG TAB PO SCH (09:44)
[2023-04-30] MEDS: APIXABAN 5 MG TABLET PO SCH (09:45)
[2023-04-30 11:04] VITALS: BP 131/58; TEMP 97.2
--- NOTE | 2023-04-30 11:21 | DS ---
Date of Discharge: 04/30/2023 Disposition: Discharged to go home. Discharge Medications And Instructions: Continue all prior home medication except following changes: 1.Stop propafenone. 2.Start sotalol 80 mg, take 1 tablet by mouth 2 times a day. 3.Change metoprolol 50 mg take half a tablet by mouth 2 times a day. 4.Follow up at my office next week and the patient has appointment on Wednesday and the patient was ins tructed to bring all her medication bottles to office. 5.Follow up with Dr. Gonzales in 1 to 2 weeks. Physical Examination: HEENT: Unremarkable. Lungs: Clear to auscultation. No wheezing. No rales. Heart: Sounds normal. Abdomen: Soft. Bowel sounds normal. No guarding, rigidity, tenderness, distention. Extremities: No leg edema. Laboratory Data: Her white count was 7.4, hemoglobin 13.1, platelets 238. Sodium 141, potassium 4.1 , chloride 111, bicarb 25, BUN 24, creatinine 1.22, glucose 115. AST 75, ALT 113, alkaline phosphata se 119. TSH 2.8. Her echocardiogram showed ejection fraction of 77%, severe diastolic dysfunction, moderate to severe tricuspid regurgitation, moderate concentric left ventricular hypertrophy. Modera te aortic insufficiency and moderate mitral regurgitation. CAT scan of abdomen and pelvis done upon arrival to emergency room showed trace right and small left pleural effusion, otherwise no acute abebe ges noted. Hospital Course: This is an 83-year-old female patient, who came into emergency room with complaints of feeling weak, tired, and short of breath. Please see dictated H and P for more information. Aft er the patient was evaluated in the emergency room, she was admitted to the hospital with acute exace rbation of chronic diastolic heart failure along with paroxysmal atrial fibrillation with rapid ventr icular rate. Cardiology consultation was obtained from Dr. Gonzales and the patient was started on sot alol in place of propafenone. She takes Eliquis 5 mg 2 times a day at home which was continued. She did receive IV Lasix, which actually helped to improve her congestive heart failure symptoms. Overa ll, she remained stable from congestive heart failure symptoms, but she continued to have atrial fibr illation with rapid ventricular rate in spite of receiving sotalol, so Dr. Gonzales did transesophageal echo with cardioversion and this was done yesterday and it was successful to bring the patient back to sinus rhythm and she has remained in sinus rhythm so far. All her symptoms have resolved. She is feeling much better and today she will be discharged to go home in stable condition. Final Diagnoses: 1.Acute and chronic diastolic heart failure. 2.Atrial fibrillation, paroxysmal, with rapid ventricular rate. 3.Hypertension. 4.Mixed hyperlipidemia. 5.Hypothyroidism. 6.Allergic rhinitis. 7.Impaired fasting glucose. WARD/MODL Voice ID: [id number] Report ID: [id number]
--- NOTE | 2023-04-30 12:12 | PN ---
Date of Progress Note: 04/29/2023 Subjective: The patient was seen this morning for followup. She was lying in bed, not in distress. No new complaints or problems reported by her. She still continues to have atrial fibrillation with rapid ventricular rate. Denies any shortness of breath overnight. Objective: Vital Signs: Reviewed. HEENT: Unremarkable. Lungs: Clear to auscultation. No wheezing. No rales. Heart: Sounds normal. Abdomen: Soft. Bowel sounds normal. No guarding, rigidity, tenderness, distention. Extremities: No leg edema. Impression: 1.Paroxysmal atrial fibrillation with rapid ventricular rate. 2.Acute and chronic diastolic heart failure. 3.Hypertension. Plan: We will go ahead and continue current medication. The patient is on Eliquis for anticoagulati on, which we will continue that. She is also on sotalol and so far sotalol has not helped to control her heart rate or to convert her to sinus rhythm and Dr. Gonzales is planning to do cardioversion toda y. Details were discussed with him. WARD/MODL Voice ID: [id number] Report ID: [id number]
== END 2023-04-30 11:00 | disposition home or self-care (01) | DRG 291 ==
LOC: ER 07:15 → ERHOLD 13:04 → 2ND 16:06
PROVIDERS: ADMIT Internal Medicine; ATTEND Internal Medicine
PROC: B24BZZ4 Ultrasonography of Heart with Aorta, Transesophageal (ICD-10-PCS; principal; 2023-04-29)
PROC: 5A2204Z Restoration of Cardiac Rhythm, Single (ICD-10-PCS; 2023-04-29)
DX: I13.0 Hypertensive heart and chronic kidney disease with heart failure and stage 1 through stage 4 chronic kidney disease, or unspecified chronic kidney disease (principal); I50.33 Acute on chronic diastolic (congestive) heart failure; N18.30 Chronic kidney disease, stage 3 unspecified; I48.0 Paroxysmal atrial fibrillation; E78.2 Mixed hyperlipidemia; E03.9 Hypothyroidism, unspecified; G89.29 Other chronic pain; M54.9 Dorsalgia, unspecified; J30.9 Allergic rhinitis, unspecified; R73.01 Impaired fasting glucose; Z95.0 Presence of cardiac pacemaker; Z11.52 Encounter for screening for COVID-19; Z79.01 Long term (current) use of anticoagulants; Z79.890 Hormone replacement therapy; Z79.899 Other long term (current) drug therapy
CPT/HCPCS: 36415; 71045; 74177; 80053; 81001; 83690; 83880; 84443; 84484; 85025; 87086; 87088; 87804; 87811; 92960; 93005; 93306; 93312; 96361; 96374; 96375; 99285; J0360; J0461; J0696; J1940; J2001; J2405; J2550; J2704; J7030; J7040; J7050; Q9967

== ENCOUNTER 2023-07-18 03:23 | Inpatient (IN) | payer OTHER ==
--- NOTE | 2023-07-18 03:34 | EDPHYS ---
Physician Documentation [facility] Name: Radhika Paz Age: 83 yrs Sex: Female : 1940 Arrival Date: 07/18/2023 Time: 03:23 Bed 6 Private MD: ED Physician Patrick Allen HPI: 07/17 03:31 This 83 yrs old Female presents to ER via Unassigned with complaints of abd ec2 pain. 03:31 Patient returns after finding acute findings on CT imaging that showed a high-grade ec2 small bowel obstruction with trace edema. . Historical: - Allergies: 04:34 No Known Drug Allergies; jb4 - PMHx: 04:34 Atrial fibrillation; chronic back pain; Hypertension; Pacemaker; jb4 - PSHx: 04:34 Tonsillectomy; jb4 - Immunization history:: Adult Immunizations up to date. - Infectious Disease History:: Denies. - Social history:: Smoking status: Patient denies any tobacco usage or history of. ROS: 03:31 Constitutional: as per hpi ec2 Exam: 03:31 Constitutional: GEN: NAD Head: atraumatic Eyes: EOMI Ears: External ears are ec2 normal. CV: regular rate LUNGS: no respiratory distress ABD: non-distended, general abdominal TTP SKIN: no evidence of rashes MSK: no evidence of trauma NEURO: moves all extremities equally Vital Signs: 04:33 BP 134 / 52; Pulse 79; Resp 16; Pulse Ox 98% on R/A; jb4 04:43 Weight 68.95 kg (R); Height 5 ft. 9 in. ; jb4 04:43 Body Mass Index 22.45 (68.95 kg, 175.26 cm) jb4 MDM: 03:29 Patient medically screened. ec2 03:33 Data reviewed: vital signs. ED course: Patient returns to the emergency department ec2 after finding a CT scan that showed a small bowel obstruction with edema. Examination remarkable for nontoxic dividual is otherwise in no acute distress. Will place NG tube, empirically give antibiotics with ceftriaxone and Flagyl. I consulted general surgery who agrees to consult on the patient. Will keep n.p.o., repeat x-ray in the morning. Discussed with hospitalist, pending admission orders.. 07/17 03:33 Order name: CBC with Diff ec2 07/17 03:33 Order name: CMP ec2 07/17 03:33 Order name: Lipase ec2 07/17 03:49 Order name: Urinalysis w/ reflexes EDMS 07/17 03:49 Order name: Basic Metabolic Panel EDMS 07/17 03:49 Order name: Basic Metabolic Panel EDMS 07/17 03:49 Order name: CBC with Automated Diff EDMS 07/17 03:49 Order name: CBC with Automated Diff EDMS 07/17 03:49 Order name: Abdomen Acute Series EDMS 07/17 03:33 Order name: IV Saline Lock; Complete Time: 03:39 ec2 07/17 03:33 Order name: Labs collected and sent; Complete Time: 03:39 ec2 Administered Medications: 03:56 Drug: Rocephin IV 1 grams IV at calculated rate once; Given slow IV push per pharmacy jb4 instructions Route: IV; Rate: calculated rate; Site: left forearm; 04:15 Follow up: Response: No adverse reaction; IV Status: Infusion continued jb4 03:56 Drug: metroNIDAZOLE IVPB 500 mg 100 ml IVPB at 200 ml/hr once over 30 mins Volume: 100 jb4 ml; Route: IVPB; Rate: 200 ml/hr; Infused Over: 30 mins; Site: left forearm; 04:30 Follow up: Response: No adverse reaction; IV Status: Completed infusion jb4 Disposition Summary: 07/18/23 03:34 Hospitalization Ordered Notes: Hospitalization Status: Inpatient Admission ec2 Condition: Stable ec2 Problem: new ec2 Symptoms: are unchanged ec2 Bed/Room Type: Standard ec2 Provider: Ortiz Woodard(07/18/23 03:42) ec2 Location: Telemetry/MedSurg (Inpatient)(07/18/23 11:09) eb Room Assignment: 410(07/18/23 11:09) eb Diagnosis - Small Bowel Obstruction ec2 Forms: - Medication Reconciliation Form ec2 - SBAR form ec2 - Leadership Thank You Letter ec2 Signatures: Dispatcher [employer] Barak Lechuga RN RN jb4 Sharon Camacho Mor[place] 5 Patrick Allen MD MD ec2 Corrections: (The following items were deleted from the chart) 03:33 03:33 CBC+H.LAB.BRZ ordered. EDMS EDMS 03:33 03:33 COMPREHENSIVE METABOLIC PANEL+C.LAB.BRZ ordered. EDMS EDMS 03:33 03:33 LIPASE+C.LAB.BRZ ordered. EDMS EDMS 03:42 03:34 Vale White ec2 ec2 04:12 03:34 Telemetry/MedSurg (Inpatient) ec2 mc5 04:12 03:34 ec2 mc5 05:49 03:33 NG Tube ordered. ec2 jb4 11:09 04:12 [facility] ER HOLD mc5 eb 11:09 [facility]
[2023-07-18] MEDS ORDERED: METRONIDAZOLE 500mg IVPB 500 MG/100 ML BAG IV ONE (03:42)
[2023-07-18] MEDS ORDERED: CEFTRIAXONE 1000 MG/VIAL ONE ×2 (03:42→08:21)
[2023-07-18 03:57] LABS: Absolute Lymphocytes (CBC) 1.7 K/uL (0.7-4.9); Absolute Monocytes 0.6 K/uL (0.1-1.3); Absolute Neutrophil 7.2 K/uL (1.8-8.0); Basophils % 0.2 % (0-1.3); Eosinophils % 0.1 % (0-4.4); Hematocrit 42.9 % (36.0-45.0); Hemoglobin 14.3 g/dL (12.0-15.0); Lymphocytes % 17.4 % (15.3-44.8); MCH 30.6 pg (27.0-35.0); MCHC 33.4 g/dL (32.0-36.0); MCV 91.4 fL (80-100); MPV 7.5 fL (7.6-11.3); Neutrophils % 76.3 % (41.7-73.7); Platelets 248 thou/uL (152-406); RBC Red Blood Cell Count 4.69 M/uL (3.86-4.86); Red Cell Distribution Width 14.6 % (12.1-15.2)
[2023-07-18] MEDS: NA CHLORIDE 0.9% 1,000 ML IV SCH (04:00)
[2023-07-18 04:22] LABS: Albumin 3.2 g/dL (3.4-5.0); Albumin/Globulin Ratio 0.9 (1.1-1.8); Anion Gap 10.1 mEq/L (5.0-15.0); Bilirubin Total 0.9 mg/dL (0.2-1.0); Globulin 3.6 g/dL (2.3-3.5); Protein, Total 6.8 g/dL (6.4-8.2)
[2023-07-18 04:28] LABS: Potassium 4.1 mEq/L (3.5-5.1)
[2023-07-18 05:17] VITALS: BMI 22.4
[2023-07-18] MEDS ORDERED: NA CHLORIDE 0.9% 1,000 ML ONE (05:36)
[2023-07-18] MEDS: METRONIDAZOLE 500mg IVPB 500 MG/100 ML BAG IV SCH (06:00)
[2023-07-18] MEDS: CEFTRIAXONE 1,000 MG in NA CHLORIDE 0.9% 50 ML IVPB SCH (08:42)
[2023-07-18] MEDS: MORPHINE 2 MG/ML SYR IV PRN (08:54)
[2023-07-18] MEDS: ONDANSETRON 4 MG/2 ML VIAL IV PRN (08:55)
[2023-07-18] MEDS ORDERED: ONDANSETRON 4 MG/2 ML VIAL ONE (08:56)
[2023-07-18] MEDS ORDERED: MORPHINE 2 MG/ML SYR ONE (08:57)
--- NOTE | 2023-07-18 09:03 | RAD REPORT ---
EXAM DESCRIPTION: RAD - Abdomen Acute Series - 07/18/2023 5:48 am CLINICAL HISTORY: f/u abd exam COMPARISON: Chest Single View dated 04/26/2023; Chest Single View dated 09/18/2022; Chest Pa And Lat ( 2 Views) dated 04/23/2022; CHEST SINGLE VIEW dated 07/05/2014; Abdomen Pelvis Wo Contrast dated 024 TECHNIQUE: Single AP view of the abdomen. FINDINGS: Relative paucity of bowel gas in the lower abdomen, otherwise nonobstructive bowel gas pat tern. No air-fluid levels, free air, or pneumatosis. Excreted contrast in the right renal pelvis and the bladder. Few pelvic phleboliths. No suspicious ca lcifications. No significant bony abnormality. IMPRESSION: Relative paucity of bowel gas, a nonspecific finding.
[2023-07-18] MEDS: D5 0.9 NS 1,000 ML IV SCH (11:00)
[2023-07-18] MEDS: AMLODIPINE 5 MG TAB PO SCH (11:00)
[2023-07-18] MEDS: METOPROLOL TAR 25 MG TAB PO SCH (11:00)
--- NOTE | 2023-07-18 11:20 | CON ---
Date of Consultation: 07/18/2023 Reason For Consultation: Small bowel obstruction. History Of Present Illness: The patient is an 83-year-old female who came in with crampy abdominal p ain, nausea, and vomiting. She denies any flatus, recently. She had a last bowel movement yesterday morning. She denies any sore throat, runny nose, cough, headaches, dizziness, chest pain, fever, or chills. Review of Systems: Otherwise, unremarkable. Past Medical History: AFib, chronic back pain, hypertension. Past Surgical History: Pacemaker, tonsillectomy, hysterectomy, and back surgery. Allergies: NO ALLERGIES. Social History: Patient denies using tobacco or drinking alcohol. Physical Examination: Vital Signs: Stable. She is currently afebrile. General: She is awake, alert, oriented x3. Head and Neck: No neck masses. No JVD. Throat clear. Neck supple. Chest: Clear. Heart: S1, S2. Abdomen: Slightly distended. Mild tenderness. No rebound, rigidity, or guarding. Hypoactive bowel sounds. No abdominal wall hernia appreciated. Extremity: Adequately perfused, nontender. Neuro: Nonfocal. Imaging: Acute abdominal series done this morning shows paucity of bowel gas in the lower abdomen, o therwise nonobstructive bowel gas pattern. No air-fluid levels, free air, or pneumatosis. A CT of t he abdomen and pelvis, report is pending. However, I was told that the patient had small bowel obstr uction with the possible transition point in the right lower quadrant. Laboratory Data: Reviewed. White count is 9.5, with slight left shift. Electrolytes reviewed. Assessment: Small bowel obstruction. Recommendations: At this point, conservative medical management will be attempted. Should that fail , patient may need surgical intervention. We will try an NG tube, NPO, IV fluids. We will follow th e x-ray. No need for any acute surgical intervention at this time. I will discuss the case with Dr. Woodard. BASSEM/HARJEET Voice ID: [id number] Report ID: [id number]
[2023-07-18 11:38] VITALS: O2SAT 97
[2023-07-18] MEDS ORDERED: METOPROLOL TAR 25 MG TAB ONE (11:44)
[2023-07-18] MEDS ORDERED: AMLODIPINE 5 MG TAB ONE (11:44)
[2023-07-18] MEDS ORDERED: D5W 1,000 ML IV ONE (11:44)
--- NOTE | 2023-07-18 12:24 | ER ---
Nurse's Notes [facility] Name: Radhika Paz Age: 83 yrs Sex: Female : 1940 Arrival Date: 07/18/2023 Time: 03:23 Bed 6 Private MD: Diagnosis: Small Bowel Obstruction Presentation: 07/17 04:33 Chief complaint: Patient states: Pt called back to ER due to CT showing abnormal jb4 results. Coronavirus screen: At this time, the client does not indicate any symptoms associated with coronavirus-19. Ebola Screen: No symptoms or risks identified at this time. Initial Sepsis Screen: Does the patient meet any 2 criteria? No. Patient's initial sepsis screen is negative. Does the patient have a suspected source of infection? No. Patient's initial sepsis screen is negative. Risk Assessment: Do you want to hurt yourself or someone else? Patient reports no desire to harm self or others. Onset of symptoms was July 18, 2023. Transition of care: patient was not received from another setting of care. 04:33 Method Of Arrival: Ambulatory jb4 04:33 Acuity: AMADOU 3 jb4 Historical: - Allergies: 04:34 No Known Drug Allergies; jb4 - PMHx: 04:34 Atrial fibrillation; chronic back pain; Hypertension; Pacemaker; jb4 - PSHx: 04:34 Tonsillectomy; jb4 - Immunization history:: Adult Immunizations up to date. - Infectious Disease History:: Denies. - Social history:: Smoking status: Patient denies any tobacco usage or history of. Screenin:35 [facility] ED Fall Risk Assessment (Adult) History of falling in the last 3 months, jb4 including since admission No falls in past 3 months (0 pts) Confusion or Disorientation No (0 pts) Intoxicated or Sedated No (0 pts) Impaired Gait No (0 pts) Mobility Assist Device Used No (0 pt) Altered Elimination No (0 pt) Score/Fall Risk Level 0 - 2 = Low Risk Oriented to surroundings, Maintained a safe environment. Abuse screen: Denies threats or abuse. Nutritional screening: No deficits noted. Tuberculosis screening: No symptoms or risk factors identified. Assessment: 04:34 General: Appears in no apparent distress. comfortable, Behavior is calm, cooperative, jb4 appropriate for age. Pain: Denies pain. Neuro: Level of Consciousness is awake, alert, obeys commands, Oriented to person, place, time, situation. Cardiovascular: Patient's skin is warm and dry. Respiratory: Airway is patent Respiratory effort is even, unlabored, Respiratory pattern is regular, symmetrical. GI: Pt reported nausea and cramping during prior visit. Reports feeling okay at this time. : No signs and/or symptoms were reported regarding the genitourinary system. EENT: No signs and/or symptoms were reported regarding the EENT system. Derm: Skin is intact, Skin is pink, warm \T\ dry. Musculoskeletal: Circulation, motion, and sensation intact. Range of motion: intact in all extremities. 05:30 Reassessment: Patient appears in no apparent distress at this time. Patient and/or jb4 family updated on plan of care and expected duration. Pain level reassessed. Patient is alert, oriented x 3, equal unlabored respirations, skin warm/dry/pink. attempted to get pt into hospital gown. Pt refused. Vital Signs: 04:33 BP 134 / 52; Pulse 79; Resp 16; Pulse Ox 98% on R/A; jb4 04:43 Weight 68.95 kg (R); Height 5 ft. 9 in. ; jb4 04:43 Body Mass Index 22.45 (68.95 kg, 175.26 cm) 4 ED Course: 03:25 Patient arrived in ED. ec2 03:25 Patrick Allen MD is Attending Physician. ec2 03:34 Vale White MD is Hospitalizing Provider. ec2 03:39 Phuc Burgess, ARON is Primary Nurse. rv 03:42 Hospitalizing Provider role handed off by Vale White MD ec2 03:42 Ortiz Woodard MD is Hospitalizing Provider. ec2 04:34 Triage completed. jb4 04:34 Arm band placed on right wrist. jb4 04:35 Patient has correct armband on for positive identification. Bed in low position. Call 4 light in reach. Side rails up X 1. Provided Education on: Plan of care.. 06:50 Patrick Allen MD is Attending Physician. ec2 07:00 Client placed on continuous cardiac and pulse oximetry monitoring. NIBP monitoring ko1 applied. radiation monitor on. Door closed. Noise minimized. Lights dimmed. Warm blanket given. Head of bed elevated. Assisted to bathroom. 09:52 Primary Nurse role handed off by Phuc Burgess RN ko1 09:52 Ranjana Deras, RN is Primary Nurse. ko1 11:56 No provider procedures requiring assistance completed. Patient admitted, IV remains in ko1 place. Administered Medications: 03:56 Drug: Rocephin IV 1 grams IV at calculated rate once; Given slow IV push per pharmacy jb4 instructions Route: IV; Rate: calculated rate; Site: left forearm; 04:15 Follow up: Response: No adverse reaction; IV Status: Infusion continued jb4 03:56 Drug: metroNIDAZOLE IVPB 500 mg 100 ml IVPB at 200 ml/hr once over 30 mins Volume: 100 jb4 ml; Route: IVPB; Rate: 200 ml/hr; Infused Over: 30 mins; Site: left forearm; 04:30 Follow up: Response: No adverse reaction; IV Status: Completed infusion jb4 Medication: 11:56 VIS not applicable for this client. ko1 Outcome: 03:34 Decision to Hospitalize by Provider. ec2 07:00 Admitted to ER Hold. Please see [facility] for further documentation. ko1 07:00 Condition: stable 07:00 Instructed on the need for admit, 12:23 Admitted to Med/surg accompanied by tech, room 410, with chart, ko1 12:23 Patient left the ED. ko1 Signatures: Barak Boles RN RN jb4 Phuc Burgess RN RN rv Ranjana Deras RN RN ko1 Patrick Allen MD MD ec2
--- NOTE | 2023-07-18 15:04 | HP ---
Date of Admission: 07/18/2023 Chief Complaint: Abdominal pain, nausea, vomiting. History Of Present Illness: This is an 83-year-old pleasant female patient, who had lunch at a local restaurant yesterday and after lunch she started to have abdominal pain all over her abdomen associa hali with 3 to 4 episodes of nausea, vomiting. She was also having some chills. No diarrhea. After her symptoms continued, she came to emergency room. Was given some pain medication and was evaluated in the ER and the ER physician discharged her during nighttime and the patient came back and was adm itted to the hospital with this partial small bowel obstruction problem. Patient was kept NPO, was g iven IV antibiotics. When I saw her this morning, she was in the emergency room, still has abdominal pain, more like a discomfort at this time and overall it is better than yesterday. Medications: Sotalol 80 mg 2 times a day, metoprolol 50 mg half tablet 2 times a day, losartan 25 mg daily, levocetirizine 5 mg daily at bedtime, gabapentin 300 mg daily at bedtime, folic acid 0.4 mg d aily, atorvastatin 10 mg daily in the evening and amlodipine 5 mg daily in morning and Eliquis 5 mg 2 times a day and the patient reports that last dose of Eliquis that she took was yesterday morning. Allergies: NO KNOWN ALLERGIES. Review of Systems: GI: As mentioned above. Constitutional: As mentioned above. All other systems reviewed and negative. Past Medical History: Significant for hypertension; chronic kidney disease, stage 3A; allergic rhini tis; hypothyroidism; impaired fasting glucose; mixed hyperlipidemia; diverticulosis; osteoarthritis a t multiple sites; overactive bladder; chronic anticoagulation therapy; chronic atrial fibrillation; a nd insomnia. Past Surgical History: Tonsillectomy, pacemaker placement, hysterectomy, and back surgery. Family History: Parents , details unknown. Sister has hypertension, atrial fibrillation. Social History: Negative for smoking. Use of alcohol, occasional. Physical Examination: Vital Signs: This morning, temperature 98, pulse oxygen saturation 96%. Height 5 feet 9 inches. Weight 152 pounds. General: Awake, alert, oriented, not in distress. HEENT: Head atraumatic, normocephalic. Conjunctivae nonerythematous. Sclerae white. Mouth, no thr ush or edema noted. Ears/Nose, no mass, lesion, discharge noted. Neck: Supple. No JVD, lymph nodes, bruit, thyromegaly noted. Lungs: Bilateral good equal air entry. Clear to auscultation. No rhonchi. No rales. Heart: Normal heart sounds, no murmur or gallop. Abdomen: Soft, bowel sounds normal. No guarding, rigidity, tenderness, mass, hepatosplenomegaly, dis tention, or bruit noted. Extremities: No leg edema. No calf tenderness. Skin: No rash, ulcer, cellulitis. Lymphatics: No lymph node enlargement in neck, supraclavicular, infraclavicular region. Neuro: No focal neurological deficit. Chest: Unremarkable. External Genitalia: Deferred. Rectal: Deferred. Laboratory Data: White count 9.5, hemoglobin 14.3, platelets 248, sodium 139, potassium 4.1, chlorid e 108, bicarb 25, BUN 17, creatinine 0.79, glucose 122. Liver function tests unremarkable. Lipase 1 9. This morning, abdominal x-ray shows relative paucity of bowel gas, nonspecific finding. No air-f luid levels, free air, or pneumatosis. Last night, when she came into emergency room for initial pre sentation, white count 10.5, hemoglobin 15.5, platelets 260, sodium 139, potassium 4.6, chloride 106, bicarb 26, BUN 18, creatinine 0.87, glucose 142. Liver function tests unremarkable. Lipase 23. He r influenza A, B, RSV, and COVID-19 test were negative. CAT scan of the abdomen and pelvis _. Impression: 1.Partial small . 2.Hypertension. 3.Hypothyroidism. 4.Impaired fasting glucose. 5.Mixed hyperlipidemia. 6.Chronic atrial fibrillation. 7.Chronic anticoagulation therapy. 8.Diverticulosis. 9.Insomnia. 10.Osteoarthritis, multiple sites. Plan: We will go ahead and admit the patient to hospital for further evaluation and management of th is problem. The patient is appropriate for inpatient and [facility] We will keep her NPO, give her IV fluid D5 normal saline as a maintenance IV fluid and general rodas rgDr. Ev allison was consulted and he has evaluated the patient. At this point, there is no evidence of any acute surgical abdomen and no need for any surgical intervention. He will continue to follow up along with me. We will repeat abdominal x-ray tomorrow. The patient was encouraged to ambulate. We will go ahead and let her have oral medications for blood pressure control. We will continue he r metoprolol, amlodipine per order; and for atrial fibrillation, she is on sotalol. We will continue that. We will not use any Eliquis at this point and start the patient on Lovenox 40 mg subcutaneous injection daily in the evening time starting today. I will see her tomorrow for followup and depend ing on how she responds today and depending on her hospital course, we will decide if we can start an y diet tomorrow or not. There is no need for NG tube placement at this time unless she starts to hav e vomiting and details were discussed with the patient. Total time spent minutes. WARD/HARJEET Voice ID: [id number]
[2023-07-18] MEDS: ENOXAPARIN 40 MG/0.4 ML SQ SCH (17:00)
[2023-07-18] MEDS: SOTALOL HCL 80 MG TAB PO SCH (21:15)
[2023-07-19 06:32] LABS: Absolute Eosinophils 0.1 K/uL (0-0.5); Absolute Lymphocytes (CBC) 2.2 K/uL (0.7-4.9); Absolute Monocytes 0.5 K/uL (0.1-1.3); Absolute Neutrophil 3.5 K/uL (1.8-8.0); Basophils % 0.3 % (0-1.3); Eosinophils % 1.8 % (0-4.4); Hemoglobin 12.3 g/dL (12.0-15.0); Lymphocytes % 34.7 % (15.3-44.8); MCH 31.1 pg (27.0-35.0); MCHC 34.1 g/dL (32.0-36.0); MCV 91.2 fL (80-100); MPV 7.7 fL (7.6-11.3); Monocytes % 8.5 % (3.3-12.3); Neutrophils % 54.7 % (41.7-73.7); Nucleated Red Blood Cells % 0.1 % (0-0); Platelets 197 thou/uL (152-406); RBC Red Blood Cell Count 3.95 M/uL (3.86-4.86); Red Cell Distribution Width 14.4 % (12.1-15.2)
[2023-07-19 06:39] LABS: Anion Gap 6.5 mEq/L (5.0-15.0); Potassium 3.5 mEq/L (3.5-5.1)
--- NOTE | 2023-07-19 07:07 | RAD REPORT ---
EXAM DESCRIPTION: RAD - Abdomen W Erect - 07/19/2023 6:10 am CLINICAL HISTORY: Abdomen pain FINDINGS: Dilatation of small bowel appears diminished in the appearance of improving small bowel ob struction Free air is not seen beneath the diaphragm
--- NOTE | 2023-07-19 14:53 | PN ---
Date of Progress Note: 07/19/2023 Subjective: Patient is awake, alert. No pain. No nausea. No vomiting. No bowel movement. Howeve r, her abdominal x-ray does not show any evidence of obstruction. Objective: Abdomen: Soft, nondistended, nontender. Positive bowel sounds. Assessment: Small bowel obstruction, likely resolved. Recommendations: We will start the patient on clear liquids and advance slowly. If tolerated, patie nt could probably discharge home tomorrow. BASSEM/HARJEET Voice ID: [id number] Report ID: [id number]
--- NOTE | 2023-07-19 19:53 | PN ---
Date of Progress Note: 07/19/2023 Subjective: The patient was seen this morning for followup. No new complaints or problems reported by her. Denies anymore abdominal pain. No nausea, vomiting. No constipation or diarrhea. Objective: Vital Signs: Reviewed. HEENT: Unremarkable. Lungs: Clear to auscultation. Heart: Sounds normal. Abdomen: Soft. Bowel sounds normal. No guarding, rigidity, tenderness, distention. Extremities: No leg edema. Laboratory Data: White count 6.3, hemoglobin 12.3, platelets 197. Sodium 140, potassium 3.5, chlori de 111, bicarb 26, BUN 11, creatinine 0.60, glucose 97. Impression: 1.Partial small bowel obstruction. 2.Hypertension. 3.Atrial fibrillation. 4.Chronic anticoagulation therapy. Plan: We will go ahead and continue to follow with Dr. Carreno. Abdominal x-ray this morning was unre markable and Dr. Carreno is going to start her on clear liquid diet and then advance slowly as she tole rates. The patient was advised to ambulate and our plan is to possibly discharge her to go home javier rrow if she tolerates diet well. Continue other current medication including her blood pressure medi cation. WARD/MODL Voice ID: [id number] Report ID: [id number]
[2023-07-20 08:32] VITALS: TEMP 97
[2023-07-20 09:19] VITALS: BP 152/62
--- NOTE | 2023-07-20 20:26 | DS ---
Date of Discharge: 07/20/2023 Disposition: Discharged to go home. Physical Examination: HEENT: Unremarkable. Lungs: Clear to auscultation. Heart: Sounds normal. Abdomen: Soft. Bowel sounds normal. No guarding, rigidity, tenderness, distention. Extremities: No leg edema. Discharge Medications And Instructions: 1.Continue all prior home medication. 2.Follow up at my office day after tomorrow at 8 a.m. Laboratory Data: Upon admission, sodium 139, potassium 4.1, chloride 108, bicarb 25, BUN 17, creatin ine 0.79, glucose 122, lipase 19. Yesterday, sodium 140, potassium 3.5, chloride 111, bicarb 26, BUN 11, creatinine 0.60, glucose 97. For WBC upon admission, white count 9.5, hemoglobin 14.3, platelet s 248. Yesterday, white count 6.3, hemoglobin 12.3, platelets 197. Hospital Course: This is an 83-year-old very pleasant female patient, who was admitted to the hospit al after she came into emergency room with abdominal pain, nausea, vomiting. Please see dictated H a nd P for more information. The patient came into emergency room after she was evaluated. She was di agnosed as having partial small bowel obstruction and ER physician released her to go home and soon a fter she left emergency room, she came back and was admitted to the hospital. After she was admitted , IV fluid was started. IV antibiotic was given and Dr. Carreno from General Surgery was consulted. T he patient did not require any NG tube and did not require any further intervention. Her symptoms re solved. Yesterday, we started her on clear liquid diet which she tolerated very well. She had a bow el movement yesterday and today after she tolerated that, she was discharged to go home. She was ins tructed to resume her all home medication as she was taking prior to admission to the hospital and I will see her day after tomorrow for followup. Final Diagnoses: 1.Bowel obstruction. 2.Hypertension. 3.Hypothyroidism. 4.Impaired fasting glucose. 5.Mixed hyperlipidemia. 6.Chronic atrial fibrillation. 7.Chronic anticoagulation therapy. 8.Diverticulosis. 9.Insomnia. 10.Osteoarthritis, multiple sites. Total time spent minutes. WARD/MODL Voice ID: [id number] Report ID: [id number]
== END 2023-07-20 09:29 | disposition home or self-care (01) | DRG 389 ==
LOC: ER 03:23 → ERHOLD 03:43 → 4TH 11:28
PROVIDERS: ADMIT Internal Medicine; ATTEND Internal Medicine
DX: K56.600 Partial intestinal obstruction, unspecified as to cause (principal); I48.20 Chronic atrial fibrillation, unspecified; E78.2 Mixed hyperlipidemia; I12.9 Hypertensive chronic kidney disease with stage 1 through stage 4 chronic kidney disease, or unspecified chronic kidney disease; N18.1 Chronic kidney disease, stage 1; E03.9 Hypothyroidism, unspecified; M19.09 Primary osteoarthritis, other specified site; G89.29 Other chronic pain; M54.9 Dorsalgia, unspecified; G47.00 Insomnia, unspecified; K57.90 Diverticulosis of intestine, part unspecified, without perforation or abscess without bleeding; R73.01 Impaired fasting glucose; Z95.0 Presence of cardiac pacemaker; Z79.01 Long term (current) use of anticoagulants; Z79.899 Other long term (current) drug therapy; Z90.710 Acquired absence of both cervix and uterus
CPT/HCPCS: 0241U; 36415; 74019; 74022; 74176; 80048; 80053; 83690; 85025; 96365; 96368; 96374; 99284; 99285; J0696; J1650; J2270; J2405; J7030; J7042

== ENCOUNTER 2023-12-07 09:05 | Observation (INO) | payer OTHER ==
[2023-12-07 09:46] LABS: Absolute Eosinophils 0.1 K/uL (0-0.5); Absolute Lymphocytes (CBC) 1.3 K/uL (0.7-4.9); Absolute Monocytes 0.5 K/uL (0.1-1.3); Absolute Neutrophil 4.9 K/uL (1.8-8.0); Basophils % 0.5 % (0-1.3); Eosinophils % 0.7 % (0-4.4); Hematocrit 39.9 % (36.0-45.0); Lymphocytes % 19.4 % (15.3-44.8); MCH 30.9 pg (27.0-35.0); MCHC 32.7 g/dL (32.0-36.0); MCV 94.7 fL (80-100); MPV 7.4 fL (7.6-11.3); Monocytes % 7.8 % (3.3-12.3); Neutrophils % 71.6 % (41.7-73.7); Nucleated Red Blood Cells % 0.1 % (0-0); Platelets 252 thou/uL (152-406); RBC Red Blood Cell Count 4.21 M/uL (3.86-4.86); Red Cell Distribution Width 14.3 % (12.1-15.2)
[2023-12-07 10:11] LABS: Albumin 3.5 g/dL (3.4-5.0); Albumin/Globulin Ratio 1.1 (1.1-1.8); Anion Gap 1.2 mEq/L (5.0-15.0); Bilirubin Direct 0.3 mg/dL (0-0.2); Bilirubin Indirect, Calculated 0.7 mg/dL (0.2-0.8); Globulin 3.2 g/dL (2.3-3.5); Magnesium 2.2 mg/dL (1.6-2.4); Potassium 4.2 mEq/L (3.5-5.1); Protein, Total 6.7 g/dL (6.4-8.2); Thyroid Stimulating Hormone 2.38 uIU/mL (0.358-3.740); Troponin High Sensitivity 37.3 pg/mL (<58.9)
--- NOTE | 2023-12-07 11:06 | RAD REPORT ---
EXAM DESCRIPTION: RADChest Single View12/07/2023 10:28 am CLINICAL HISTORY: PALPITATIONS COMPARISON: Abdomen Acute Series dated 07/18/2023; Chest Single View dated 04/26/2023; Chest Single Vi ew dated 09/18/2022; Chest Pa And Lat (2 Views) dated 04/23/2022 TECHNIQUE: Portable AP view of the chest. FINDINGS: Interval improvement of central interstitial prominence and left pleural effusion. No pne umothorax or sizable effusion. The cardiomediastinal contours are unremarkable. IMPRESSION: Improving findings of CHF as above.
[2023-12-07] MEDS ORDERED: METOPROLOL TARTRATE 5 MG/5 ML INJ IV ONE (11:11)
--- NOTE | 2023-12-07 14:16 | EDPHYS ---
Physician Documentation [facility] Name: Radhika Paz Age: 83 yrs Sex: Female : 1940 Arrival Date: 12/07/2023 Time: 09:05 Bed 2 Private MD: ED Physician Jerry Carcamo HPI: 12/06 09:23 This 83 yrs old Female presents to ER via Ambulatory with complaints of Palpitations, rt Nausea. 09:23 Patient presents to the ED with palpitations, stating that feels like her heart is rt beating too fast. Reports an associated nausea. Denies any overt chest pain. Denies other acute complaints at this time, symptoms are moderate in severity, no other aggravating or alleviating factors.. Historical: - Allergies: : No Known Allergies; iw - PMHx: :19 Atrial fibrillation; chronic back pain; Hypertension; Pacemaker; iw - PSHx: 09:19 Tonsillectomy; iw - Immunization history:: Adult Immunizations up to date. - Infectious Disease History:: Denies. - Family history:: not pertinent. - Social history:: Smoking status: Patient denies any tobacco usage or history of. ROS: 09:23 Constitutional: Negative for fever, chills, and weight loss, Respiratory: Negative for rt shortness of breath, cough, wheezing, and pleuritic chest pain, MS/Extremity: Negative for injury and deformity, Skin: Negative for injury, rash, and discoloration, Neuro: Negative for headache, weakness, numbness, tingling, and seizure, 09:23 Cardiovascular: Positive for palpitations, Negative for chest pain, 09:23 Abdomen/GI: Positive for nausea, Negative for abdominal pain, Exam: 09:23 Constitutional: This is a well developed, well nourished patient who is awake, alert, rt and in no acute distress. Head/Face: Normocephalic, atraumatic. Chest/axilla: Normal chest wall appearance and motion. Nontender with no deformity. No lesions are appreciated. Cardiovascular: Regular rate and rhythm with a normal S1 and S2. No gallops, murmurs, or rubs. Normal PMI, no JVD. No pulse deficits. Respiratory: Lungs have equal breath sounds bilaterally, clear to auscultation and percussion. No rales, rhonchi or wheezes noted. No increased work of breathing, no retractions or nasal flaring. Abdomen/GI: Soft, non-tender, with normal bowel sounds. No distension or tympany. No guarding or rebound. No evidence of tenderness throughout. Skin: Warm, dry with normal turgor. Normal color with no rashes, no lesions, and no evidence of cellulitis. MS/ Extremity: Pulses equal, no cyanosis. Neurovascular intact. Full, normal range of motion. Neuro: Awake and alert, GCS 15, oriented to person, place, time, and situation. Cranial nerves II-XII grossly intact. Motor strength 5/5 in all extremities. Sensory grossly intact. Cerebellar exam normal. Normal gait. 09:59 ECG was reviewed by the Attending Physician. rt Vital Signs: 09:18 BP 145 / 92; Pulse 97; Resp 18; Pulse Ox 99% on R/A; iw 09:43 Temp 98; Weight 65.77 kg; Height 5 ft. 4 in. ; mb9 10:35 BP 129 / 70; Pulse 110; Resp 18; Pulse Ox 100% on R/A; mb9 11:18 BP 154 / 65; Pulse 115; Resp 16; Pulse Ox 95% on R/A; mb9 11:25 BP 139 / 91; Pulse 108; Resp 16; Pulse Ox 100% on R/A; mb9 11:35 BP 128 / 76; Pulse 104; Resp 18; Pulse Ox 100% on R/A; mb9 12:33 BP 139 / 68; Pulse 97; Resp 18; Pulse Ox 95% on R/A; mb9 13:13 BP 147 / 64; Pulse 105; Resp 16; Pulse Ox 95% on R/A; mb9 14:10 BP 164 / 68; Pulse 102; Resp 18; Pulse Ox 95% on R/A; mb9 09:43 Body Mass Index 24.89 (65.77 kg, 162.56 cm) mb9 MDM: 09:15 Patient medically screened. rt 16:00 Differential diagnosis: A-fib, sinus tach, dysrhythmia. Data reviewed: vital signs, rt nurses notes, lab test result(s), EKG, radiologic studies. Consideration of Admission/Observation Patient was admitted/placed on observation. Management of patient was discussed with the following: Primary Care Provider: Agrees to admit. I considered the following discharge prescriptions or medication management in the emergency department Medications were administered in the Emergency Department. See MAR. Independent interpretation of the following test(s) in the Emergency Department X-Ray: My interpretation is None emergency room interpretation of x-ray images. Care significantly affected by the following chronic conditions: Atrial fibrillation. Counseling: I had a detailed discussion with the patient and/or guardian regarding the historical points, exam findings, and any diagnostic results supporting the discharge/admit diagnosis, lab results, radiology results, the need for further work-up and treatment in the hospital. Response to treatment: the patient's symptoms have markedly improved after treatment. 16:00 Management of patient was discussed with the following: Water Service Supervisor: Discussed with Dr. rt Gonzales, recommends sotalol, metoprolol 25 twice daily, n.p.o. after midnight for likely cardioversion tomorrow. 12/06 09:22 Order name: Basic Metabolic Panel; Complete Time: 10:13 rt 12/06 09:22 Order name: CBC with Diff; Complete Time: 10:13 rt 12/06 09:22 Order name: LFT's; Complete Time: 10:13 rt 12/06 09:22 Order name: Magnesium; Complete Time: 10:13 rt 12/06 09:22 Order name: Troponin HS; Complete Time: 10:13 rt 12/06 09:22 Order name: TSH; Complete Time: 10:13 rt 12/06 09:22 Order name: XRAY Chest (1 view); Complete Time: 11:20 rt 12/06 09:22 Order name: EKG; Complete Time: 09:23 rt 12/06 14:24 Order name: CONS Physician Consult EDMS 12/06 09:22 Order name: Cardiac monitoring; Complete Time: :27 rt 12/06 09:22 Order name: EKG - Nurse/Tech; Complete Time: :27 rt 12/06 09:22 Order name: IV Saline Lock; Complete Time: :43 rt 12/06 09:22 Order name: Labs collected and sent; Complete Time: :43 rt 12/06 09:22 Order name: O2 Per Protocol; Complete Time: :27 rt 12/06 09:22 Order name: O2 Sat Monitoring; Complete Time: 09:27 rt EC:59 Rate is 110 beats/min. Rhythm is irregularly irregular, Demand pacemaker, intrinsic rt rhythm is atrial fibrillation with rapid ventricular rate with Occasional PVCs, Nonspecific ST and T wave changes. QRS Celina is Normal. QRS interval is normal. QT interval is normal. No Q waves. Administered Medications: 11:18 Drug: Metoprolol IVP 5 mg IVP every 5 minutes; Hold for SBP < 100 or HR < 60. x3 Route: mb9 IVP; Site: left antecubital; 11:25 Drug: Metoprolol IVP 5 mg IVP every 5 minutes; Hold for SBP < 100 or HR < 60. x3 Route: mb9 IVP; Site: left antecubital; 11:35 Drug: Metoprolol IVP 5 mg IVP every 5 minutes; Hold for SBP < 100 or HR < 60. x3 Route: mb9 IVP; Site: left antecubital; 13:25 Follow up: Response: No adverse reaction mb9 Disposition Summary: 12/07/23 14:16 Hospitalization Ordered Notes: Hospitalization Status: Observation rt Provider: Ilan Woodard rt [facility] rt Condition: Stable rt Problem: an acute exacerbation rt Symptoms: have improved rt Bed/Room Type: Standard rt Room Assignment: 212(12/07/23 14:30) [id number] Diagnosis - Atrial fibrillation with rapid ventricular rate rt Forms: - Medication Reconciliation Form rt - SBAR form rt - Leadership Thank You Letter rt Critical care time excluding procedures: 16:00 Critical care time: Bedside Care: 30 minutes, Consultation: 5 minutes. Total time: 35 rt minutes Signatures: Dispatcher [employer] Osiris Kitchen RN RN iw Wilkerson, Mary Beth, RN RN mb9 [place], Ryan, MD MD rt Shana King jr12 Corrections: (The following items were deleted from the chart) 14:30 14:16 rt jr12
--- NOTE | 2023-12-07 14:16 | ER ---
Nurse's Notes [facility] Name: Radhika Paz Age: 83 yrs Sex: Female : 1940 Arrival Date: 12/07/2023 Time: 09:05 Bed 2 Private MD: Diagnosis: Atrial fibrillation with rapid ventricular rate Presentation: 12/06 09:18 Chief complaint: Patient states: woke up at 5 am with her heart pounding and feeling iw sick to her stomach. Coronavirus screen: At this time, the client does not indicate any symptoms associated with coronavirus-19. Ebola Screen: No symptoms or risks identified at this time. 09:18 Method Of Arrival: Ambulatory iw 09:18 Acuity: AMADOU 3 iw 09:42 Initial Sepsis Screen: Does the patient meet any 2 criteria? No. Patient's initial mb9 sepsis screen is negative. Does the patient have a suspected source of infection? No. Patient's initial sepsis screen is negative. Risk Assessment: Do you want to hurt yourself or someone else? Patient reports no desire to harm self or others. Onset of symptoms was December 07, 2023. Historical: - Allergies: 09:20 No Known Allergies; iw - PMHx: 09:19 Atrial fibrillation; chronic back pain; Hypertension; Pacemaker; iw - PSHx: 09:19 Tonsillectomy; iw - Immunization history:: Adult Immunizations up to date. - Infectious Disease History:: Denies. - Family history:: not pertinent. - Social history:: Smoking status: Patient denies any tobacco usage or history of. Screenin:42 [facility] ED Fall Risk Assessment (Adult) History of falling in the last 3 months, mb9 including since admission No falls in past 3 months (0 pts) Confusion or Disorientation No (0 pts) Intoxicated or Sedated No (0 pts) Impaired Gait No (0 pts) Mobility Assist Device Used No (0 pt) Altered Elimination No (0 pt) Score/Fall Risk Level 0 - 2 = Low Risk Oriented to surroundings, Maintained a safe environment, Educated pt \T\ family on fall prevention, incl call for assistance when getting out of bed. Abuse screen: Denies threats or abuse. Nutritional screening: No deficits noted. Tuberculosis screening: No symptoms or risk factors identified. Assessment: 09:41 General: Appears in no apparent distress. Behavior is calm, cooperative. Pain: Denies mb9 pain. Neuro: Yu Agitation-Sedation Scale (RASS): 0 - Alert and Calm Level of Consciousness is awake, alert, obeys commands, Oriented to person, place, time, situation, Appropriate for age. Cardiovascular: Reports palpitations, Heart tones S1 S2 present Patient's skin is warm and dry. Rhythm is atrial fibrillation. Respiratory: Airway is patent Respiratory effort is even, unlabored, Respiratory pattern is regular, symmetrical. GI: Abdomen is flat, non-distended, Bowel sounds present X 4 quads. Abd is soft and non tender X 4 quads. : No signs and/or symptoms were reported regarding the genitourinary system. EENT: No signs and/or symptoms were reported regarding the EENT system. Derm: Skin is pink, warm \T\ dry. Musculoskeletal: Range of motion: intact in all extremities. 11:00 Reassessment: No changes from previously documented assessment. Patient and/or family mb9 updated on plan of care and expected duration. Pain level reassessed. Patient is alert, oriented x 3, equal unlabored respirations, skin warm/dry/pink. 12:00 Reassessment: No changes from previously documented assessment. Patient and/or family mb9 updated on plan of care and expected duration. Pain level reassessed. Patient is alert, oriented x 3, equal unlabored respirations, skin warm/dry/pink. 13:00 Reassessment: No changes from previously documented assessment. Patient and/or family mb9 updated on plan of care and expected duration. Pain level reassessed. Patient is alert, oriented x 3, equal unlabored respirations, skin warm/dry/pink. 14:10 Reassessment: No changes from previously documented assessment. Patient and/or family mb9 updated on plan of care and expected duration. Pain level reassessed. Patient is alert, oriented x 3, equal unlabored respirations, skin warm/dry/pink. Vital Signs: 09:18 BP 145 / 92; Pulse 97; Resp 18; Pulse Ox 99% on R/A; iw 09:43 Temp 98; Weight 65.77 kg; Height 5 ft. 4 in. ; mb9 10:35 BP 129 / 70; Pulse 110; Resp 18; Pulse Ox 100% on R/A; mb9 11:18 BP 154 / 65; Pulse 115; Resp 16; Pulse Ox 95% on R/A; mb9 11:25 BP 139 / 91; Pulse 108; Resp 16; Pulse Ox 100% on R/A; mb9 11:35 BP 128 / 76; Pulse 104; Resp 18; Pulse Ox 100% on R/A; mb9 12:33 BP 139 / 68; Pulse 97; Resp 18; Pulse Ox 95% on R/A; mb9 13:13 BP 147 / 64; Pulse 105; Resp 16; Pulse Ox 95% on R/A; mb9 14:10 BP 164 / 68; Pulse 102; Resp 18; Pulse Ox 95% on R/A; mb9 09:43 Body Mass Index 24.89 (65.77 kg, 162.56 cm) mb9 ED Course: 09:09 Patient arrived in ED. mr 09:11 Jerry Carcamo MD is Attending Physician. rt 09:12 August Nagy, RN is Primary Nurse. bp 09:19 Triage completed. iw 09:21 Primary Nurse role handed off by August Nagy RN mb9 09:21 Meena Mathew, ARON is Primary Nurse. mb9 09:27 Arm band placed on. mb9 09:30 Initial lab(s) drawn, by me, sent to lab. EKG done, by ED staff, reviewed by Jerry Carcamo MD. Inserted saline lock: 20 gauge in left antecubital area, using aseptic technique. Blood collected. Flushed with 10 mL NS. 09:42 Placed in gown. Bed in low position. Call light in reach. Side rails up X 1. Provided mb9 Education on: press call light if needing anything. Client placed on continuous cardiac and pulse oximetry monitoring. NIBP monitoring applied. cafe worker on. 09:43 Basic Metabolic Panel Sent. mb9 09:43 CBC with Diff Sent. mb9 09:43 LFT's Sent. mb9 09:43 Magnesium Sent. mb9 09:43 Troponin HS Sent. mb9 10:30 XRAY Chest (1 view) In Process Unspecified. EDMS 14:14 No provider procedures requiring assistance completed. mb9 14:15 Ilan Woodard MD is Hospitalizing Provider. rt Administered Medications: 11:18 Drug: Metoprolol IVP 5 mg IVP every 5 minutes; Hold for SBP < 100 or HR < 60. x3 Route: mb9 IVP; Site: left antecubital; 11:25 Drug: Metoprolol IVP 5 mg IVP every 5 minutes; Hold for SBP < 100 or HR < 60. x3 Route: mb9 IVP; Site: left antecubital; 11:35 Drug: Metoprolol IVP 5 mg IVP every 5 minutes; Hold for SBP < 100 or HR < 60. x3 Route: mb9 IVP; Site: left antecubital; 13:25 Follow up: Response: No adverse reaction mb9 Medication: 09:42 VIS not applicable for this client. mb9 Outcome: 14:16 Decision to Hospitalize by Provider. rt 15:11 Patient left the ED. bc6 Signatures: Dispatcher [employer] EDMS Meena White, Ki Emerson mr Osiris Gold, RN RN August Vera RN RN bp Wilkerson, Mary Beth, RN RN Jerry Long MD MD rt Mariela Redd bc6 Corrections: (The following items were deleted from the chart) 14 09:43 GI: Reports mb9 mb9
[2023-12-07 15:34] VITALS: BMI 23.1
[2023-12-07 15:43] VITALS: O2SAT 95
[2023-12-07] MEDS: METOPROLOL TAR 25 MG TAB PO SCH (17:45)
[2023-12-07] MEDS: SOTALOL HCL 80 MG TAB PO SCH (17:46)
--- NOTE | 2023-12-07 21:00 | HP ---
Date of Admission: 12/07/2023 Chief Complaint: Palpitation. History Of Present Illness: This is an 83-year-old pleasant female patient, who was doing fine in he r normal usual state of health until this morning. After she woke up, she started to have palpitatio n type of feeling. She denies any chest pain or shortness of breath. No nausea or vomiting. No rec ent febrile illness. No diarrhea. She regularly and after this palpitation feeling did n ot go away, she came to emergency room and she was evaluated, diagnosed as having atrial fibrillation with rapid ventricular rate and she was given metoprolol in the emergency room and I was contacted a nd details were discussed with ER physician. Cardiology consultation was requested from our cardiolo gist who is planning to do cardioversion tomorrow and the patient was admitted to the hospital and so talol was started per director digital marketing. When I saw her this evening, she was asymptomatic, lying in bed. Denied any complaints. Allergies: NO KNOWN ALLERGIES. Medications: Amlodipine 5 mg 2 times a day, Eliquis 5 mg 2 times a day, atorvastatin 10 mg daily, fo lic acid 0.4 mg daily, gabapentin 300 mg 2 times a day, levocetirizine 5 mg daily, levothyroxine 75 m cg daily, losartan 25 mg daily, metoprolol 50 mg tablet take half a tablet 2 times a day, sotalol 80 mg twice a day. Review of Systems: Cardiovascular: As mentioned above. All other systems reviewed and negative. Past Medical History: Significant for allergic rhinitis, hypothyroidism, impaired fasting glucose, h ypertension, mixed hyperlipidemia, paroxysmal atrial fibrillation, diverticulosis, overactive bladder , osteoarthritis at multiple sites, depression, insomnia. Past Surgical History: Tonsillectomy, pacemaker, hysterectomy, back surgery. Family History: Father , details unknown. Mother , details unknown. Sister has hypertensio n and atrial fibrillation. Social History: Negative for smoking and alcohol use. Physical Examination: Vital Signs: Temperature 98.4, pulse 100, respiratory rate 16, blood pressure 140/67, oxygen saturat ion 95%. Height 5 feet 8 inches, weight 152 pounds. General: Awake, alert, oriented, not in distress. HEENT: Head atraumatic, normocephalic. Conjunctivae nonerythematous. Sclerae white. Mouth, no thr ush or edema noted. Ears/Nose, no mass, lesion, discharge noted. Neck: Supple. No JVD, lymph nodes, bruit, thyromegaly noted. Lungs: Bilateral good equal air entry. Clear to auscultation. No rhonchi. No rales. Heart: Normal heart sounds, no murmur or gallop. Abdomen: Soft, bowel sounds normal. No guarding, rigidity, tenderness, mass, hepatosplenomegaly, dis tention, or bruit noted. Extremities: No leg edema. No calf tenderness. Skin: No rash, ulcer, cellulitis. Lymphatics: No lymph node enlargement in neck, supraclavicular, infraclavicular region. Neuro: No focal neurological deficit. Chest: Unremarkable. External Genitalia: Deferred. Rectal: Deferred. Laboratory Data: Chest x-ray, no acute cardiopulmonary changes. EKG, atrial fibrillation. WBC 6.9, hemoglobin 13, platelets 252. Sodium 141, potassium 4.2, chloride 110, bicarb 34, BUN 22, creatinin e 0.95, glucose 118. Liver function tests unremarkable except ALT 63. Troponin 37.3. TSH 2.380. Impression: 1.Paroxysmal atrial fibrillation, with rapid ventricular rate. 2.Chronic anticoagulation therapy. 3.Hypertension. 4.Mixed hyperlipidemia. 5.Hypothyroidism. 6.Impaired fasting glucose. 7.Osteoarthritis, multiple sites. 8.Diverticulosis. 9.Depression. 10.Insomnia. Plan: We will go ahead and admit the patient to hospital for further evaluation and management of th is problem. The patient will be admitted for observation to telemetry. We will consult director digital marketing . Continue home medications per order. For atrial fibrillation, she is on Eliquis and sotalol, whic h we will continue that and follow up with director digital marketing. For hypertension, we will continue her anti hypertensive medication per order. Monitor blood pressure if necessary, adjust medication. For hype rlipidemia, continue her statin therapy per order. For hypothyroidism, continue levothyroxine and no need for any further intervention. Total time spent 65 minutes including review of last office visit record from 11/30/2023, review of [facility] emergency room record, communication with ER physicians, performing today's evaluation and man agement. WARD/MODL Voice ID: [id number]
[2023-12-07] MEDS: GABAPENTIN 300 MG CAP PO SCH (21:53)
[2023-12-07] MEDS: APIXABAN 5 MG TABLET PO SCH (21:53)
[2023-12-07] MEDS ORDERED: ONDANSETRON 4 MG (ODT) TAB PO PRN (22:20)
[2023-12-07] MEDS: ALPRAZOLAM 0.25 MG TABLET PO ONE (22:22)
[2023-12-08 04:57] LABS: Absolute Eosinophils 0.1 K/uL (0-0.5); Absolute Lymphocytes (CBC) 1.9 K/uL (0.7-4.9); Absolute Monocytes 0.5 K/uL (0.1-1.3); Absolute Neutrophil 2.3 K/uL (1.8-8.0); Basophils % 0.7 % (0-1.3); Eosinophils % 1.1 % (0-4.4); Hematocrit 38.4 % (36.0-45.0); Hemoglobin 12.7 g/dL (12.0-15.0); Lymphocytes % 40.2 % (15.3-44.8); MCH 31.1 pg (27.0-35.0); MCV 94.1 fL (80-100); MPV 7.5 fL (7.6-11.3); Monocytes % 10.5 % (3.3-12.3); Neutrophils % 47.5 % (41.7-73.7); Nucleated Red Blood Cells % 0.1 % (0-0); Platelets 194 thou/uL (152-406); RBC Red Blood Cell Count 4.08 M/uL (3.86-4.86)
[2023-12-08 05:10] LABS: Anion Gap 9.1 mEq/L (5.0-15.0); Potassium 4.1 mEq/L (3.5-5.1)
[2023-12-08] MEDS: LEVOTHYROXINE SOD 0.075 MG TAB PO SCH (07:00)
[2023-12-08] MEDS: LOSARTAN POTASSIUM 50 MG TABLET PO SCH (08:49)
[2023-12-08] MEDS ORDERED: HOME MED 1 EA UNK (Losartan Potassium [Losartan Potassium] 25 MG Tablet) PO SCH (09:00)
[2023-12-08 10:00] VITALS: BP 126/60; TEMP 96.8
--- NOTE | 2023-12-08 11:06 | P.CNS ---
Date of Consult: 12/08/23 Chief Complaint: atrial fibrillation History of Present Illness: Patient with PMH of atrial fibrillation s/p Pacemaker placement, HTN, presented from primary care for AF w RVR, has been having palpitations recently, denies any other cardiac symptoms. Allergies No Known Drug Allergies Allergy (Verified 09/19/22 05:00) Unknown Home medications list reviewed: Yes Home Medications: RX: Gabapentin 300 mg PO BEDTIME 01/19/14 Amlodipine [Norvasc] 5 mg PO BID 09/18/22 Apixaban [Eliquis] 5 mg PO BID 12/07/23 RX: Atorvastatin Calcium 10 mg PO DAILY AT SUPPER 12/07/23 RX: Levocetirizine Dihydrochloride [Allergy Relief] 5 mg PO BEDTIME 12/07/23 RX: Levothyroxine [Synthroid*] 0.075 mg PO [id number] 12/07/23 RX: Losartan Potassium 25 mg PO DAILY 12/07/23 RX: Metoprolol Succinate [Toprol Xl*] 25 mg PO BEDTIME 12/07/23 RX: Metoprolol Tartrate 25 mg PO DAILY 12/07/23 RX: Sotalol HCl [Betapace AF] 80 mg PO BID 12/07/23 - Past Medical/Surgical History Diabetic: No -: HTN -: PACEMAKER -: Afib -: Hypothyroidism -: hysterectomy -: back SX -: tonsilectomy - Family History Mother Medical History: Hypertension, Cancer, Other (see notes) Notes: alzheimers - Social History Smoking Status: Former smoker Alcohol use: No CD- Drugs: No Caffeine use: No Place of Residence: Home Review of Systems 10-point ROS is otherwise unremarkable Physical Examination Temp Pulse Resp BP Pulse Ox 96.8 F 89 16 126/60 93 12/08/23 08:00 12/08/23 08:00 12/08/23 08:00 12/08/23 08:00 12/08/23 08:00 General: Alert, In no apparent distress HEENT: Atraumatic, PERRLA, Mucous membr. moist/pink, EOMI, Sclerae nonicteric Neck: Supple, 2+ carotid pulse no bruit, No LAD, Without JVD or thyroid abnormality Respiratory: Clear to auscultation bilaterally, Normal air movement Cardiovascular: Irregular heart rate/rhythm Gastrointestinal: Normal bowel sounds, No tenderness Musculoskeletal: No tenderness Integumentary: No rashes Neurological: Normal gait, Normal speech, Normal tone, Normal affect Lymphatics: No axilla or inguinal lymphadenopathy - Problems (1) Atrial fibrillation with rapid ventricular response Onset Date: 07/02/14 Current Visit: No Status: Acute Plan: Patient was started on Sotalol 80 mg po BID records review shows patient had a NESTOR DCCV back in 04/2023, patient is currently rate controlled in the 80s alternating between AF and paced rhythm, Echo reviewed and shows dilated LA, so since patient is rate controlled and asymptomatic at this point, i do not see a need for repeated NESTOR DCCV as this will not put her in sinus rhythm for long period and just placing her under a risk for stroke, will refer her as outpatient for AF Ablation. continue Sotalol 80 mg po BID continue Eliquis 5 mg po BID continue lopressor 25 mg po BID follow up as outpatient with cardiology. (2) Hyperlipidemia Current Visit: No Status: Acute Plan: continue Lipitor 10 mg abdelrahman;y (3) Hypertension Current Visit: No Status: Acute Plan: continue home medications.
--- NOTE | 2023-12-08 12:11 | EKG ---
Test Date: 2023-12-07 Test Time: 09:25:35 Supervisor [employer]: ANGELES MEASUREMENT RESULTS: Intervals: Rate: 110 [place]: QRSD: 78 QT: 346 QTc: 468 [place]: P: [place]: QRS: 42 T: 262 INTERPRETIVE STATEMENTS: Demand pacemaker, interpretation is based on intrinsic rhythm Atrial fibrillation with premature ventricular or aberrantly conducted complexes Septal infarct, age undetermined ST & T wave abnormality, consider inferolateral ischemia or digitalis effect Abnormal ECG Compared to ECG 04/29/2023 12:05:21 Ventricular premature complex(es) now present Myocardial infarct finding now present Sinus rhythm no longer present First degree AV block no longer present ST (T wave) deviation still present Possible ischemia still present Electronically Signed On 12-08-23 12:07:45 CDT by Mando Ornelas
[2023-12-08] MEDS ORDERED: ATORVASTATIN 10 MG TAB PO SCH (17:00)
--- NOTE | 2023-12-08 20:48 | DS ---
Date of Discharge: 12/08/2023 Disposition: Discharged to go home. Physical Examination: HEENT: Unremarkable. Lungs: Clear to auscultation. Heart: Sounds normal. Abdomen: Soft. Bowel sounds normal. No guarding, rigidity, tenderness, distention. Extremities: No leg edema. Laboratory Data: Yesterday, white count 6.9, hemoglobin 13, platelets 252. Today, white count 4.8, hemoglobin 12.7, platelets 194. For chemistry yesterday, sodium 141, potassium 4.2, chloride 110, bi carb 34, BUN 22, creatinine 0.95, glucose 118. Liver function tests unremarkable except ALT 63 yeste rday. TSH was 2.380. Troponin was 37.3. Today, sodium 143, potassium 4.1, chloride 112, bicarb 26, BUN 17, creatinine 0.88, glucose 82. Liver function tests unremarkable. ALT 58. Hospital Course: This is an 83-year-old pleasant female patient, who was admitted to the hospital wi th palpitation. Please see dictated H and P for more information. The patient was evaluated in the emergency room and was admitted to the hospital with paroxysmal atrial fibrillation with rapid ventri cular rate. She was given metoprolol in the emergency room and subsequently admitted to the hospital . At home, she takes Eliquis and sotalol. When I asked her if she is taking those medication on a r egular basis or not, she informed me that she believes she is. I have asked her to bring all her med ication bottles to the office at the time of followup visit and I have asked her multiple times in e past, but she does not bring it and 1 more time during this hospitalization, I have informed her to bring all her medication bottles next week when she comes to the office for followup visit. Cardiol ogy consultation was requested from Dr. Ornelas and originally my understanding was the wharf operator w as planning to do cardioversion, but today Dr. Ornelas called and informed me that she had failed her cardioversion last time, so instead of doing another cardioversion, he is recommending for the patien t to have a followup with some specialist in [place] for consideration of ablation. With that, there is no need for the patient to stay in hospital any longer and we will have the patient follow up wit h wharf operator on outpatient basis, so he can help make this arrangements. The patient was discharge d to go home in stable condition. Discharge Diagnoses: 1.Paroxysmal atrial fibrillation, with rapid ventricular rate. 2.Chronic anticoagulation therapy. 3.Hypertension. 4.Mixed hyperlipidemia. 5.Hypothyroidism. 6.Impaired fasting glucose. 7.Osteoarthritis, multiple sites. 8.Diverticulosis. 9.Depression. 10.Insomnia. Discharge Medications And Instructions: 1.Continue all prior home medications. 2.Make sure to take Eliquis and sotalol on a regular basis as prescribed. 3.Follow up at my office next week and bring all medication bottles at the time of office visit. 4.Follow up with Dr. Ornelas in 2 weeks. Total time spent today 40 minutes. WARD/MODL Voice ID: [id number] Report ID: [id number]
== END 2023-12-08 11:08 | disposition home or self-care (01) ==
LOC: ER 09:05 → ERHOLD 14:20 → 2ND 14:45
PROVIDERS: ADMIT Internal Medicine; ATTEND Internal Medicine
DX: I48.11 Longstanding persistent atrial fibrillation (principal); I10 Essential (primary) hypertension; E78.2 Mixed hyperlipidemia; E03.9 Hypothyroidism, unspecified; M19.90 Unspecified osteoarthritis, unspecified site; F32.A Depression, unspecified; G47.00 Insomnia, unspecified; R73.01 Impaired fasting glucose; Z95.0 Presence of cardiac pacemaker; Z79.01 Long term (current) use of anticoagulants
CPT/HCPCS: 36415; 71045; 80048; 80053; 80076; 83735; 84443; 84484; 85025; 93005; 96374; 99285; G0378

== ENCOUNTER 2024-04-22 07:18 | Emergency (ER) | payer OTHER ==
[2024-04-22] MEDS ORDERED: CEFTRIAXONE 1000 MG/VIAL ONE (07:57)
[2024-04-22] MEDS ORDERED: ONDANSETRON 4 MG/2 ML VIAL ONE (07:57)
[2024-04-22] MEDS ORDERED: NA CHLORIDE 0.9% 1,000 ML ONE (07:58)
--- NOTE | 2024-04-22 08:15 | RAD REPORT ---
EXAM: Chest Single View HISTORY: Cough;Dyspnea COMPARISON: 12/07/2023 FINDINGS: LUNGS/PLEURA: The lungs are clear. No pleural effusions or pneumothorax. No pulmonary edema. Some pro minence of the interstitial markings in the medial right lung base are unchanged. MEDIASTINUM: The mediastinal silhouette is within normal limits. CARDIAC: Stable size and configuration. UPPER ABDOMEN: No significant abnormality. BONES: No acute abnormality. LINES/TUBES/OTHER: Pacemaker present. IMPRESSION: No evidence of acute cardiopulmonary disease.
[2024-04-22 08:26] LABS: Calcium Oxalate Crystals- Ur Moderate /HPF (None Seen); Specific Gravity > 1.030 (1.005-1.030); Urine Bacteria <20 /HPF (<20); Urine Bilirubin NEGATIVE (Negative); Urine Blood Negative (Negative); Urine Clarity Extremely Turbid (Clear); Urine Color Yellow (Yellow); Urine Culture Reflex Order REFLEXED; Urine Glucose NEGATIVE (Negative); Urine Ketones NEGATIVE (Negative); Urine Microscopic Reflex YN ORDER UMIC; Urine Mucus Slight /HPF (None Seen); Urine Nitrite NEGATIVE (Negative); Urine Protein TRACE (Negative); Urine Urobilinogen 1+ (Normal); Urine WBC 20-50 /HPF (<5)
[2024-04-22 08:40] LABS: Absolute Lymphocytes (CBC) 1.3 K/uL (0.7-4.9); Absolute Monocytes 0.4 K/uL (0.1-1.3); Absolute Neutrophil 5.2 K/uL (1.8-8.0); Basophils % 0.3 % (0-1.3); Eosinophils % 0.4 % (0-4.4); Hematocrit 45.2 % (36.0-45.0); Hemoglobin 14.9 g/dL (12.0-15.0); Lymphocytes % 18.2 % (15.3-44.8); MCH 31.2 pg (27.0-35.0); MCHC 32.8 g/dL (32.0-36.0); MCV 95.1 fL (80-100); MPV 7.6 fL (7.6-11.3); Monocytes % 6.1 % (3.3-12.3); Platelets 213 thou/uL (152-406); Protime INR 1.14; RBC Red Blood Cell Count 4.76 M/uL (3.86-4.86); Red Cell Distribution Width 14.5 % (12.1-15.2)
[2024-04-22 08:41] LABS: Albumin 3.6 g/dL (3.4-5.0); Anion Gap 7.8 mEq/L (5.0-15.0); Bilirubin Direct 0.3 mg/dL (0-0.2); Bilirubin Indirect, Calculated 0.6 mg/dL (0.2-0.8); Bilirubin Total 0.9 mg/dL (0.2-1.0); Globulin 3.6 g/dL (2.3-3.5); Magnesium 2.2 mg/dL (1.6-2.4); Potassium 3.8 mEq/L (3.5-5.1); Protein, Total 7.2 g/dL (6.4-8.2); Troponin High Sensitivity 33.9 pg/mL (<58.9)
[2024-04-22 08:42] LABS: SARS-CoV-2 Antigen CONTROL BLUE LINE VIS/BG OK; SARS-CoV-2 Antigen Rapid Res Negative (Negative)
--- NOTE | 2024-04-22 10:12 | ER ---
Nurse's Notes [facility] Name: Radhika Paz Age: 84 yrs Sex: Female : 1940 Arrival Date: 04/22/2024 Time: 07:18 Bed 5 Private MD: Diagnosis: Nausea;Vomiting;UTI/ Urinary tract infection, site not specified;Chronic combined systolic (congestive) and diastolic (congestive) heart failure Presentation: 04/22 07:39 Chief complaint: Patient states: she started having nausea, and hot flashes last night. ap3 patient states she has been on an antibiotic for a previously dx UTI since 04/14/24. Coronavirus screen: At this time, the client does not indicate any symptoms associated with coronavirus-19. Ebola Screen: No symptoms or risks identified at this time. Initial Sepsis Screen: Does the patient meet any 2 criteria? No. Patient's initial sepsis screen is negative. Does the patient have a suspected source of infection? No. Patient's initial sepsis screen is negative. Risk Assessment: Do you want to hurt yourself or someone else? Patient reports no desire to harm self or others. Onset of symptoms was April 21, 2023. 07:39 Method Of Arrival: Ambulatory ap3 07:39 Acuity: AMADOU 3 ap3 Triage Assessment: 07:42 General: Appears in no apparent distress. Behavior is calm, cooperative, appropriate ap3 for age, Reports chills for feeling ill for. Pain: Complains of pain in abdomen. Neuro: Level of Consciousness is awake, alert, obeys commands, Oriented to person, place, time, situation, Appropriate for age Gait is steady. Cardiovascular: Patient's skin is warm and dry. Respiratory: Airway is patent Respiratory effort is even, unlabored, Respiratory pattern is regular, symmetrical. GI: Reports nausea, vomiting. Historical: - Allergies: 07:42 No Known Allergies; ap3 - PMHx: 07:42 Atrial fibrillation; chronic back pain; Hypertension; Pacemaker; ap3 - PSHx: 07:42 Tonsillectomy; ap3 - Immunization history:: Client reports receiving the 2nd dose of the Covid vaccine, Flu vaccine is up to date. - Infectious Disease History:: Denies. - Social history:: Smoking status: Patient denies any tobacco usage or history of. Patient uses alcohol, occasionally. Screenin:43 Abuse screen: Denies threats or abuse. Nutritional screening: No deficits noted. ap3 Tuberculosis screening: No symptoms or risk factors identified. 08:12 [facility] ED Fall Risk Assessment (Adult) History of falling in the last 3 months, ld1 including since admission No falls in past 3 months (0 pts) Confusion or Disorientation No (0 pts) Intoxicated or Sedated No (0 pts) Impaired Gait No (0 pts) Mobility Assist Device Used No (0 pt) Altered Elimination No (0 pt) Score/Fall Risk Level 0 - 2 = Low Risk Oriented to surroundings, Maintained a safe environment, Educated pt \T\ family on fall prevention, incl call for assistance when getting out of bed, Assessed \T\ reinforced patient's understanding of fall precautions, Provided non-skid footwear, Hourly rounding (assess needs \T\ fall precautionary measures) done, Used ambulatory aids as needed (educated on \T\ assisted with), Used gait belt as appropriate. Assessment: 08:12 General: Appears in no apparent distress. comfortable, Behavior is calm, cooperative, ld1 appropriate for age. Pain: Denies pain. Neuro: Level of Consciousness is awake, alert, obeys commands, Oriented to person, place, time, situation, Appropriate for age. Cardiovascular: Capillary refill < 3 seconds Patient's skin is warm and dry. Respiratory: Airway is patent Respiratory effort is even, unlabored. GI: Abdomen is flat, non-distended. GI: Reports diarrhea, nausea, vomiting. : No signs and/or symptoms were reported regarding the genitourinary system. EENT: No signs and/or symptoms were reported regarding the EENT system. Derm: No signs and/or symptoms reported regarding the dermatologic system. Musculoskeletal: No signs and/or symptoms reported regarding the musculoskeletal system. Vital Signs: 07:39 BP 186 / 54; Pulse 72; Resp 17; Temp 97.6(O); Pulse Ox 98% on R/A; Weight 69.85 kg; ap3 Height 5 ft. 8 in. ; 08:12 BP 182 / 47; Pulse 67; Resp 18; Pulse Ox 95% on R/A; Pain 0/10; ld1 09:11 BP 174 / 50; Pulse 68; Resp 16; Pulse Ox 96% ; ko1 10:15 BP 170 / 56; Pulse 70; Resp 15; Pulse Ox 98% ; ko1 07:39 Body Mass Index 23.42 (69.85 kg, 172.72 cm) ap3 08:12 Pain Scale: Adult ld1 ED Course: 07:25 Patient arrived in ED. sj2 07:33 Ranjana Deras, RN is Primary Nurse. ko1 07:38 Geovani Willoughby MD is Attending Physician. melanie 07:42 Triage completed. ap3 07:43 Arm band placed on right wrist. ap3 08:11 XRAY Chest (1 view) In Process Unspecified. EDMS 08:12 Patient has correct armband on for positive identification. Placed in gown. Bed in low ld1 position. Call light in reach. Side rails up X2. pitch worker on. Pulse ox on. NIBP on. Door closed. Noise minimized. Warm blanket given. 08:12 Flu Sent. ld1 08:12 SARS RAPID Sent. ld1 08:12 Urine Culture Sent. ld1 08:12 Urinalysis w/ reflexes Sent. ld1 08:12 Blood Culture Adult (2) Sent. ld1 08:12 Basic Metabolic Panel Sent. ld1 08:12 CBC with Diff Sent. ld1 08:12 LFT's Sent. ld1 08:12 Magnesium Sent. ld1 08:12 Inserted saline lock: 20 gauge in right antecubital area, using aseptic technique. ld1 Blood collected. Flushed with 10 mL NS. 08:12 No provider procedures requiring assistance completed. ld1 08:22 EKG done, by ED staff, reviewed by Geovani Willoughby MD. ap3 09:11 Provided Education on: labs, meds. ko1 10:10 Ilan Woodard MD is Referral Physician. melanie 10:20 IV discontinued, intact, bleeding controlled, No redness/swelling at site. Pressure ko1 dressing applied. Administered Medications: 08:12 Drug: NS 0.9% IV 1000 ml IV at 100 ml/hr once Route: IV; Rate: 100 ml/hr; Site: right ld1 antecubital; 10:26 Follow up: Response: No adverse reaction; IV Status: Completed infusion; IV Intake: ko1 250ml 08:12 Drug: Ondansetron IVP 4 mg IVP once; over 2 minutes Route: IVP; Site: right antecubital;ld1 08:27 Follow up: Response: No adverse reaction ko1 08:12 Drug: Rocephin IV 1 grams IV at per protocol once; Given slow IV push per pharmacy ld1 instructions Route: IV; Rate: per protocol; Site: right antecubital; 08:27 Follow up: Response: No adverse reaction; IV Status: Completed infusion; IV Intake: [id number] 10:16 Drug: Trimethoprim-Sulfamethoxazole PO (160 mg-800 mg (DS) 1 tablet PO once Route: PO; ko1 10:33 Follow up: Response: No adverse reaction; Medication administered at discharge. ko1 10:16 Drug: Furosemide IVP 20 mg IVP once; give over 2 minutes Route: IVP; Site: right ko1 antecubital; 10:25 Follow up: Response: No adverse reaction ko1 10:16 Drug: Potassium PO Effervescent Tablet 25 mEq PO once; dissolve in 4 ounces of water or ko1 juice Route: PO; :33 Follow up: Response: No adverse reaction; Medication administered at discharge. ko1 Medication: 09:11 VIS not applicable for this client. ko1 Intake: 08:27 IV: 10ml; Total: 10ml. ko1 10:26 IV: 250ml; Total: 260ml. ko1 Outcome: 10:11 Discharge ordered by MD. navarro 10:20 Condition: stable ko1 10:20 Discharge instructions given to patient, Instructed on discharge instructions, follow up and referral plans. medication usage, Demonstrated understanding of instructions, follow-up care, medications, 10:21 Discharged to home ambulatory, with family, ko1 10:21 Prescriptions given X 3, :33 Patient left the ED. ko1 Signatures: Dispatcher [employer] EDSD Geovani Willoughby MD MD cha Prokisch, Amanda RN RN ap3 Darling Del Valle RN RN ld1 Ranjana Deras RN RN ko1 Andrade [place]
--- NOTE | 2024-04-22 10:12 | EDPHYS ---
Physician Documentation [facility] Name: Radhika Paz Age: 84 yrs Sex: Female : 1940 Arrival Date: 04/22/2024 Time: 07:18 Bed 5 Private MD: ED Physician Geovani Willoughby HPI: 04/22 10:03 This 84 yrs old Female presents to ER via Ambulatory with complaints of melanie Nausea/Vomiting, HOT/COLD SPELLS, Urinary Problem. Historical: - Allergies: 07:42 No Known Allergies; ap3 - PMHx: 07:42 Atrial fibrillation; chronic back pain; Hypertension; Pacemaker; ap3 - PSHx: 07:42 Tonsillectomy; ap3 - Immunization history:: Client reports receiving the 2nd dose of the Covid vaccine, Flu vaccine is up to date. - Infectious Disease History:: Denies. - Social history:: Smoking status: Patient denies any tobacco usage or history of. Patient uses alcohol, occasionally. ROS: 10:05 Constitutional: Negative for fever, chills, and weight loss, Eyes: Negative for injury, melanie pain, redness, and discharge, ENT: Negative for injury, pain, and discharge, Neck: Negative for injury, pain, and swelling, Cardiovascular: Negative for chest pain, palpitations, and edema, Abdomen/GI: Negative for abdominal pain, nausea, vomiting, diarrhea, and constipation, Back: Negative for injury and pain, MS/Extremity: Negative for injury and deformity, Skin: Negative for injury, rash, and discoloration, Neuro: Negative for headache, weakness, numbness, tingling, and seizure, Psych: Negative for depression, anxiety, suicide ideation, homicidal ideation, and hallucinations, Allergy/Immunology: Negative for hives, rash, and allergies, Endocrine: Negative for neck swelling, polydipsia, polyuria, polyphagia, and marked weight changes, Hematologic/Lymphatic: Negative for swollen nodes, abnormal bleeding, and unusual bruising, 10:05 Respiratory: Positive for shortness of breath, 10:05 Abdomen/GI: Positive for nausea and vomiting, Exam: 10:05 Constitutional: This is a well developed, well nourished patient who is awake, alert, melanie and in no acute distress. Head/Face: Normocephalic, atraumatic. Eyes: Pupils equal round and reactive to light, extra-ocular motions intact. Lids and lashes normal. Conjunctiva and sclera are non-icteric and not injected. Cornea within normal limits. Periorbital areas with no swelling, redness, or edema. ENT: Nares patent. No nasal discharge, no septal abnormalities noted. Tympanic membranes are normal and external auditory canals are clear. Oropharynx with no redness, swelling, or masses, exudates, or evidence of obstruction, uvula midline. Mucous membranes moist. Neck: Trachea midline, no thyromegaly or masses palpated, and no cervical lymphadenopathy. Supple, full range of motion without nuchal rigidity, or vertebral point tenderness. No Meningismus. Chest/axilla: Normal chest wall appearance and motion. Nontender with no deformity. No lesions are appreciated. Cardiovascular: Regular rate and rhythm with a normal S1 and S2. No gallops, murmurs, or rubs. Normal PMI, no JVD. No pulse deficits. Respiratory: Lungs have equal breath sounds bilaterally, clear to auscultation and percussion. No rales, rhonchi or wheezes noted. No increased work of breathing, no retractions or nasal flaring. Abdomen/GI: Soft, non-tender, with normal bowel sounds. No distension or tympany. No guarding or rebound. No evidence of tenderness throughout. Back: No spinal tenderness. No costovertebral tenderness. Full range of motion. Skin: Warm, dry with normal turgor. Normal color with no rashes, no lesions, and no evidence of cellulitis. MS/ Extremity: Pulses equal, no cyanosis. Neurovascular intact. Full, normal range of motion., bilateral aka Neuro: Awake and alert, GCS 15, oriented to person, place, time, and situation. Cranial nerves II-XII grossly intact. Motor strength 5/5 in all extremities. Sensory grossly intact. Cerebellar exam normal. Normal gait. Psych: Awake, alert, with orientation to person, place and time. Behavior, mood, and affect are within normal limits. 10:05 ECG was reviewed by the Attending Physician. Vital Signs: 07:39 BP 186 / 54; Pulse 72; Resp 17; Temp 97.6(O); Pulse Ox 98% on R/A; Weight 69.85 kg; ap3 Height 5 ft. 8 in. ; 08:12 BP 182 / 47; Pulse 67; Resp 18; Pulse Ox 95% on R/A; Pain 0/10; ld1 09:11 BP 174 / 50; Pulse 68; Resp 16; Pulse Ox 96% ; ko1 10:15 BP 170 / 56; Pulse 70; Resp 15; Pulse Ox 98% ; ko1 07:39 Body Mass Index 23.42 (69.85 kg, 172.72 cm) ap3 08:12 Pain Scale: Adult ld1 MDM: 07:38 Medical Screening Exam initiated melanie 10:13 Differential diagnosis: Nonspecific abd pain, gastritis, pancreatitis, viral melanie gastroenteritis, gastroenteritis. Data reviewed: vital signs, nurses notes, lab test result(s), EKG, radiologic studies, CT scan, plain films. Consideration of Admission/Observation Patient was admitted/placed on observation. Escalation of care including admission/observation considered. I considered the following discharge prescriptions or medication management in the emergency department Medications were administered in the Emergency Department. See MAR. Independent interpretation of the following test(s) in the Emergency Department EKG: See my EKG interpretation above. Test considered but Not performed: Ultrasound no 2 d echo. Historians other than the Patient: family well informed. Care significantly affected by the following chronic conditions: Hypertension, Congestive Heart Failure, cbp, a fib. 04/22 07:45 Order name: Basic Metabolic Panel; Complete Time: 09:54 melanie 04/22 07:45 Order name: CBC with Diff; Complete Time: 09:54 04/22 07:45 Order name: LFT's; Complete Time: 09:54 melanie 04/22 07:45 Order name: Magnesium; Complete Time: 09:54 melanie 04/22 07:45 Order name: NT PRO-BNP; Complete Time: 09:54 melanie 04/22 07:45 Order name: PT-INR; Complete Time: 09:54 melanie 04/22 07:45 Order name: Troponin HS; Complete Time: 09:54 melanie 04/22 07:45 Order name: Urinalysis w/ reflexes; Complete Time: 09:54 melanie 04/22 07:45 Order name: Urine Culture melanie 04/22 07:45 Order name: Blood Culture Adult (2) melanie 04/22 07:49 Order name: SARS RAPID; Complete Time: 09:54 em1 04/22 07:49 Order name: Flu; Complete Time: 09:54 em1 04/22 07:45 Order name: XRAY Chest (1 view); Complete Time: 09:54 [facility] 04/22 07:45 Order name: Cardiac monitoring; Complete Time: 08:10 [facility] 04/22 07:45 Order name: EKG - Nurse/Tech; Complete Time: 08:23 [facility] 04/22 07:45 Order name: IV Saline Lock; Complete Time: 08:10 [facility] 04/22 07:45 Order name: Labs collected and sent; Complete Time: 08:10 [facility] 04/22 07:45 Order name: O2 Per Protocol; Complete Time: 07:45 [facility] 04/22 07:45 Order name: O2 Sat Monitoring; Complete Time: 07:45 [facility] EC:05 Rate is 64 beats/min. Rhythm is regular. QRS [place] is Normal. MD interval is normal. QRS melanie interval is normal. QT interval is normal. No Q waves. T waves are Normal. No ST changes noted. Clinical impression: NSR w/ Non-specific ST/T Changes and No evidence of ischemia. Interpreted by me. Reviewed by me. Administered Medications: 08:12 Drug: NS 0.9% IV 1000 ml IV at 100 ml/hr once Route: IV; Rate: 100 ml/hr; Site: right ld1 antecubital; 10:26 Follow up: Response: No adverse reaction; IV Status: Completed infusion; IV Intake: ko1 250ml 08:12 Drug: Ondansetron IVP 4 mg IVP once; over 2 minutes Route: IVP; Site: right antecubital;ld1 08:27 Follow up: Response: No adverse reaction ko1 08:12 Drug: Rocephin IV 1 grams IV at per protocol once; Given slow IV push per pharmacy ld1 instructions Route: IV; Rate: per protocol; Site: right antecubital; 08:27 Follow up: Response: No adverse reaction; IV Status: Completed infusion; IV Intake: [id number] 10:16 Drug: Trimethoprim-Sulfamethoxazole PO (160 mg-800 mg (DS) 1 tablet PO once Route: PO; ko1 10:33 Follow up: Response: No adverse reaction; Medication administered at discharge. ko1 10:16 Drug: Furosemide IVP 20 mg IVP once; give over 2 minutes Route: IVP; Site: right ko1 antecubital; 10:25 Follow up: Response: No adverse reaction ko1 10:16 Drug: Potassium PO Effervescent Tablet 25 mEq PO once; dissolve in 4 ounces of water or ko1 juice Route: PO; 10:33 Follow up: Response: No adverse reaction; Medication administered at discharge. ko1 Disposition Summary: 04/22/24 10:11 Discharge Ordered Notes: Location: Home melanie Problem: new melanie Symptoms: have improved melanie Condition: Stable melanie Diagnosis - Nausea melanie - Vomiting melanie - UTI/ Urinary tract infection, site not specified melanie - Chronic combined systolic (congestive) and diastolic (congestive) heart failure melanie Followup: melanie - With: Ilan Woodard MD - When: 2 - 3 days - Reason: Recheck today's complaints, Continuance of care, Re-evaluation by your physician Discharge Instructions: - Discharge Summary Sheet melanie - Dysuria melanie - Nausea and Vomiting, Adult melanie - Nausea, Adult melanie - Urinary Tract Infection, Adult melanie - Nausea and Vomiting, Adult, [id number] melanie - Urinary Tract Infection, Adult, [id number] melanie - Heart Failure, Self-Care melanie - Heart Failure, Self-Care, [id number] melanie - Living With Heart Failure melanie - Heart Failure Exacerbation melanie - Heart Failure Eating Plan [facility] Forms: - Medication Reconciliation Form [facility] - Antibiotic Education melanie - Prescription Opioid Use [facility] - Patient Portal Instructions [facility] - Leadership Thank You Letter [facility] Prescriptions: - cefdinir 300 mg Oral capsule - take 1 capsule ORAL route 2 times per day for 7 days; 14 capsule; Refills: 0, [facility] Product Selection Permitted - ondansetron 4 mg Oral Tablet,disintegrating - take 1 tablet ORAL route every 8 hours for 5 days; 20 tablet; Refills: 0, [facility] Product Selection Permitted - Bactrim DS 800-160 mg Oral Tablet - take 1 tablet ORAL route every 12 hours for 3 days; 6 tablet; Refills: 0, [facility] Product Selection Permitted Signatures: Dispatcher [employer] EDMS Geovani Willoughby MD MD cha Prokisch, Amanda RN RN ap3 Darling Del Valle RN RN ld1 Ranjana Deras RN RN ko1 Corrections: (The following items were deleted from the chart) 07:46 07:46 BASIC METABOLIC PANEL+C.LAB.BRZ ordered. EDMS EDMS 07:46 07:46 CBC+H.LAB.BRZ ordered. EDMS EDMS 07:46 07:46 HEPATIC FUNCTION+C.LAB.BRZ ordered. EDMS EDMS 07:46 07:46 MAGNESIUM+C.LAB.BRZ ordered. EDMS EDMS 07:46 07:46 PROBNP+C.LAB.BRZ ordered. EDMS EDMS 07:46 07:46 PROTIME (+INR)+COAG.LAB.BRZ ordered. EDMS EDMS 07:46 07:46 Troponin High Sensitivity+C.LAB.BRZ ordered. EDMS EDMS 07:46 07:46 Urinalysis+U.LAB.BRZ ordered. EDMS EDMS 07:46 07:46 Urine Culture+BA.LAB.BRZ ordered. EDMS EDMS 07:46 07:46 BLOOD CULTURE*+BA.LAB.BRZ ordered. EDMS EDMS 07:46 07:46 Chest Single View+RAD.RAD.BRZ ordered. EDMS EDMS
[2024-04-22 11:29] VITALS: TEMP 97.6
[2024-04-22 11:31] VITALS: BP 174/50; O2SAT 96
== END 2024-04-22 10:33 | disposition home or self-care (01) ==
LOC: ER 07:18
DX: R11.2 Nausea with vomiting, unspecified (principal); N39.0 Urinary tract infection, site not specified; I11.0 Hypertensive heart disease with heart failure; I50.40 Unspecified combined systolic (congestive) and diastolic (congestive) heart failure; I48.91 Unspecified atrial fibrillation; Z95.0 Presence of cardiac pacemaker; Z11.52 Encounter for screening for COVID-19
CPT/HCPCS: 96361; 87040 ×2; 87088; 85025; 81001; 87086; 80048; 36415; 83735; 85610; 80076; 84484; 83880; 87804 ×2; 71045; 96375; 96374; 99285; 87811; J2405; J7030; J0696

== ENCOUNTER 2024-06-24 08:24 | Emergency (ER) | payer OTHER ==
[2024-06-24] MEDS ORDERED: KETOROLAC 30 MG/ML INJ ONE (08:49)
[2024-06-24] MEDS ORDERED: ONDANSETRON 4 MG/2 ML VIAL ONE (08:50)
[2024-06-24 08:52] LABS: Absolute Lymphocytes (CBC) 1.5 K/uL (0.7-4.9); Absolute Monocytes 0.6 K/uL (0.1-1.3); Absolute Neutrophil 6.7 K/uL (1.8-8.0); Basophils % 0.3 % (0-1.3); Eosinophils % 0.3 % (0-4.4); Hematocrit 43.6 % (36.0-45.0); Hemoglobin 14.7 g/dL (12.0-15.0); Lymphocytes % 17.1 % (15.3-44.8); MCH 31.7 pg (27.0-35.0); MCHC 33.7 g/dL (32.0-36.0); MCV 93.8 fL (80-100); MPV 7.6 fL (7.6-11.3); Monocytes % 7.2 % (3.3-12.3); Neutrophils % 75.1 % (41.7-73.7); Platelets 178 thou/uL (152-406); RBC Red Blood Cell Count 4.65 M/uL (3.86-4.86); Red Cell Distribution Width 14.5 % (12.1-15.2)
[2024-06-24 08:59] LABS: PT Prothrombin Time 12.4 SECONDS (10-13.0); Protime INR 1.09
[2024-06-24] MEDS ORDERED: dilTIAZem HCL 25 MG/5 ML VIAL IV ONE (09:19)
[2024-06-24 09:23] LABS: Albumin 3.3 g/dL (3.4-5.0); Albumin/Globulin Ratio 1.1 (1.1-1.8); Anion Gap 8.7 mEq/L (5.0-15.0); Bilirubin Direct 0.3 mg/dL (0-0.2); Bilirubin Total 1.3 mg/dL (0.2-1.0); Magnesium 2.2 mg/dL (1.6-2.4); Potassium 3.7 mEq/L (3.5-5.1); Protein, Total 6.3 g/dL (6.4-8.2)
[2024-06-24 09:24] LABS: Troponin High Sensitivity 340.1 pg/mL (<58.9)
--- NOTE | 2024-06-24 09:35 | ER ---
Nurse's Notes [facility] Name: Radhika Paz Age: 84 yrs Sex: Female : 1940 Arrival Date: 06/24/2024 Time: 08:24 Bed 8 Private MD: Diagnosis: NSTEMI, CHF exacerbation, atrial fibrillation with RVR Presentation: 06/24 08:26 Chief complaint: EMS states: SHORTNESS OF BREATH AFTER BREAKING UP WITH BOYFRIEND LAST bp PM. Coronavirus screen: At this time, the client does not indicate any symptoms associated with coronavirus-19. Ebola Screen: No symptoms or risks identified at this time. Initial Sepsis Screen: Does the patient meet any 2 criteria? No. Patient's initial sepsis screen is negative. Does the patient have a suspected source of infection? No. Patient's initial sepsis screen is negative. Risk Assessment: Do you want to hurt yourself or someone else? Patient reports no desire to harm self or others. Onset of symptoms is unknown. Care prior to arrival: Medication(s) given: zofran 4 mg, IV initiated. 20 GA, in the right forearm. 08:26 Method Of Arrival: EMS: [facility] bp 08:26 Acuity: AMADOU 3 bp Triage Assessment: 08:28 General: Appears in no apparent distress. Behavior is cooperative, appropriate for age, bp anxious. Pain: Complains of pain in right leg. EENT: No deficits noted. Neuro: Level of Consciousness is awake, alert, obeys commands, Oriented to Appropriate for age. Cardiovascular: Rhythm is atrial fibrillation. Respiratory: Reports shortness of breath Onset: The symptoms/episode began/occurred this morning, the patient reports symptoms have resolved. GI: No signs and/or symptoms were reported involving the gastrointestinal system. : No signs and/or symptoms were reported regarding the genitourinary system. Derm: No deficits noted. Musculoskeletal: No deficits noted. Historical: - Allergies: 08: No Known Drug Allergies; bp - PMHx: 08:28 Atrial fibrillation; chronic back pain; Hypertension; Pacemaker; bp - PSHx: 08:28 Tonsillectomy; bp - Immunization history:: Adult Immunizations up to date. - Infectious Disease History:: Denies. - Social history:: Smoking status: Patient denies any tobacco usage or history of. Screenin:30 [facility] ED Fall Risk Assessment (Adult) History of falling in the last 3 months, bp including since admission No falls in past 3 months (0 pts) Confusion or Disorientation No (0 pts) Intoxicated or Sedated No (0 pts) Impaired Gait No (0 pts) Mobility Assist Device Used No (0 pt) Altered Elimination No (0 pt) Score/Fall Risk Level 0 - 2 = Low Risk Oriented to surroundings. Abuse screen: Denies threats or abuse. Denies injuries from another. Nutritional screening: No deficits noted. Tuberculosis screening: No symptoms or risk factors identified. Assessment: 08:30 General: Appears in no apparent distress. Behavior is cooperative, appropriate for age, bp anxious. 09:02 Reassessment: Patient appears in no apparent distress at this time. Patient and/or hb family updated on plan of care and expected duration. Pain level reassessed. Patient is alert, oriented x 3, equal unlabored respirations, skin warm/dry/pink. 10:09 Reassessment: Patient appears in no apparent distress at this time. Patient and/or hb family updated on plan of care and expected duration. Pain level reassessed. Patient is alert, oriented x 3, equal unlabored respirations, skin warm/dry/pink. 14:00 Reassessment: ATTEMPTED TO CALL REPORT TO [facility] x3, UNABLE TO REACH RECEIVING bp NURSE. 14:45 Reassessment: Patient appears in no apparent distress at this time. Patient and/or hb family updated on plan of care and expected duration. Pain level reassessed. Patient is alert, oriented x 3, equal unlabored respirations, skin warm/dry/pink. 14:55 Reassessment: REPORT TO LAWRENCE SHARP AT [facility]. TRANSPORT PENDING. bp 15:08 Reassessment: EMS AT B/S FOR TRANSPORT. bp Vital Signs: 08:26 BP 137 / 81; Pulse 110; Resp 16; Temp 98; Pulse Ox 99% ; bp 09:02 BP 160 / 87; Pulse 119; Resp 14; Pulse Ox 99% on R/A; Pain 8/10; hb 09:37 BP 133 / 95; Pulse 90; Resp 21; Pulse Ox 98% ; bp 12:00 BP 155 / 95; Pulse 88; Resp 16; Pulse Ox 100% ; bp 14:02 BP 133 / 87; Pulse 98; Resp 16; Pulse Ox 99% ; bp 14:45 BP 150 / 80; Pulse 117; Resp 21; Pulse Ox 100% on R/A; hb 09:02 Pain Scale: Adult hb ED Course: 08:24 Patient arrived in ED. bp 08:28 Triage completed. bp 08:28 Arm band placed on. bp 08:29 Chase Horn MD is Attending Physician. sp3 08:30 Patient has correct armband on for positive identification. bp 08:30 Maintain EMS IV. Dressing intact. Good blood return noted. Site clean \T\ dry. Gauge \T\ bp site: 20 R FA. Flushed with 10 mL NS. 08:34 August Nagy, RN is Primary Nurse. bp 09:01 EKG done, by ED staff, reviewed by hCase Horn MD. hb 09:02 Provided Education on: use of call light, tests, result times, medication. hb 09:15 XRAY Chest (1 view) In Process Unspecified. EDMS 09:34 Anna Gaines MD is Hospitalizing Provider. sp3 11:19 Ilan Woodard MD is Hospitalizing Provider. sp3 12:39 called [facility] for transfer talked to Darling. sp 13:[address] Winifred Gaines accepted pt to [facility]. 1310 admin approval by Darling Carr sp report number [phone] fax [phone]. 14:01 No provider procedures requiring assistance completed. Patient transferred, IV remains bp in place. 14:31 Diet: Patient given snack. Patient given juice. rs6 14:32 called [facility] transfer center to help Nurse report. on hold for 33 minutes, was able sp to transfer to August to do Nurse to Nurse. 14:36 called [facility] for transfer to [facility]. talked to Tab. sp Administered Medications: 09:01 Drug: Ketorolac IVP 15 mg IVP once Route: IVP; Site: right forearm; hb 10:03 Follow up: Response: No adverse reaction bp 09:01 Drug: Ondansetron IVP 4 mg IVP once; over 2 minutes Route: IVP; Site: right forearm; hb 10:03 Follow up: Response: No adverse reaction bp 09:20 Drug: Diltiazem IVP 10 mg IVP once; Over 2 minutes Route: IVP; Site: right forearm; bp 10:03 Follow up: Response: No adverse reaction bp 10:02 Drug: morphine IVP or IV 4 mg IVP once over 4 mins Route: IVP; Infused Over: 4 mins; bp Site: right forearm; 14:04 Follow up: Response: No adverse reaction bp Medication: 10:09 VIS not applicable for this client. hb Outcome: 09:35 Decision to Hospitalize by Provider. sp3 13:25 ER care complete, transfer ordered by . sp3 14:55 Transferred by ground EMS to [facility], Transfer form completed. bp 14:55 Condition: stable 14:55 Instructed on the need for transfer, 15:09 Patient left the ED. bp Signatures: Dispatcher [employer] EDMS Em Moreno Heather, RN RN August Huerta, RN RN bp Chase Horn MD MD sp3 Jerry Robledo rs6
--- NOTE | 2024-06-24 09:35 | EDPHYS ---
Physician Documentation [facility] Name: Radhika Paz Age: 84 yrs Sex: Female : 1940 Arrival Date: 06/24/2024 Time: 08:24 Bed 8 Private MD: ED Physician Chase Horn HPI: 06/24 08:50 This 84 yrs old Female presents to ER via EMS with complaints of Anxiety, Shortness Of sp3 Breath. 08:50 84-year-old female with history of atrial fibrillation on Eliquis, chronic back pain, sp3 demand pacemaker, hypertension presents to the ED for tachycardia which is now resolved and her chronic sciatica type pain. She denies any chest pain, shortness of breath abdominal pain, syncope, near syncope, fever or any other signs or symptoms on ROS at this time.. Historical: - Allergies: 08:28 No Known Drug Allergies; bp - PMHx: 08:28 Atrial fibrillation; chronic back pain; Hypertension; Pacemaker; bp - PSHx: 08:28 Tonsillectomy; bp - Immunization history:: Adult Immunizations up to date. - Infectious Disease History:: Denies. - Social history:: Smoking status: Patient denies any tobacco usage or history of. ROS: 08:51 Constitutional: Negative for fever, chills, and weight loss, Eyes: Negative for injury, sp3 pain, redness, and discharge, ENT: Negative for injury, pain, and discharge, Neck: Negative for injury, pain, and swelling, Respiratory: Negative for shortness of breath, cough, wheezing, and pleuritic chest pain, Abdomen/GI: Negative for abdominal pain, nausea, vomiting, diarrhea, and constipation, Back: Negative for injury and pain, MS/Extremity: Negative for injury and deformity, Skin: Negative for injury, rash, and discoloration, Neuro: Negative for headache, weakness, numbness, tingling, and seizure, Psych: Negative for depression, anxiety, suicide ideation, homicidal ideation, and hallucinations, Allergy/Immunology: Negative for hives, rash, and allergies, Endocrine: Negative for neck swelling, polydipsia, polyuria, polyphagia, and marked weight changes, 08:51 All other systems are negative, Exam: 08:51 Constitutional: This is a well developed, well nourished patient who is awake, alert, sp3 and in no acute distress. Head/Face: Normocephalic, atraumatic. Eyes: Pupils equal round and reactive to light, extra-ocular motions intact. Lids and lashes normal. Conjunctiva and sclera are non-icteric and not injected. Cornea within normal limits. Periorbital areas with no swelling, redness, or edema. ENT: Nares patent. No nasal discharge, no septal abnormalities noted. External auditory canals are clear. Oropharynx with no redness, swelling, or masses, exudates, or evidence of obstruction, uvula midline. Mucous membranes moist. Neck: Trachea midline, no thyromegaly or masses palpated, and no cervical lymphadenopathy. Supple, full range of motion without nuchal rigidity, or vertebral point tenderness. No Meningismus. Chest/axilla: Normal chest wall appearance and motion. Nontender with no deformity. No lesions are appreciated. Respiratory: Lungs have equal breath sounds bilaterally, clear to auscultation and percussion. No rales, rhonchi or wheezes noted. No increased work of breathing, no retractions or nasal flaring. Abdomen/GI: Soft, non-tender, with normal bowel sounds. No distension or tympany. No guarding or rebound. No evidence of tenderness throughout. Back: No spinal tenderness. No costovertebral tenderness. Full range of motion. Skin: Warm, dry with normal turgor. Normal color with no rashes, no lesions, and no evidence of cellulitis. Neuro: Awake and alert, GCS 15, oriented to person, place, time, and situation. Cranial nerves II-XII grossly intact. Motor strength 5/5 in all extremities. Sensory grossly intact. Cerebellar exam normal. Normal gait. Psych: Awake, alert, with orientation to person, place and time. Behavior, mood, and affect are within normal limits. 08:51 Cardiovascular: Atrial fibrillation with ventricular capture between 90 and 100 bpm, 08:51 Musculoskeletal/extremity: Left-sided buttock pain from her chronic sciatica. Normal sp3 distal neurovascular exam.. 09:11 ECG was reviewed by the Attending Physician. EKG demonstrates atrial fibrillation with sp3 ventricular response to 120 bpm with occasional PVC, rate related ST/T changes with no evidence of acute ischemia. Vital Signs: 08:26 BP 137 / 81; Pulse 110; Resp 16; Temp 98; Pulse Ox 99% ; bp 09:02 BP 160 / 87; Pulse 119; Resp 14; Pulse Ox 99% on R/A; Pain 8/10; hb 09:37 BP 133 / 95; Pulse 90; Resp 21; Pulse Ox 98% ; bp 12:00 BP 155 / 95; Pulse 88; Resp 16; Pulse Ox 100% ; bp 14:02 BP 133 / 87; Pulse 98; Resp 16; Pulse Ox 99% ; bp 14:45 BP 150 / 80; Pulse 117; Resp 21; Pulse Ox 100% on R/A; hb 09:02 Pain Scale: Adult hb MDM: 08:32 Medical Screening Exam initiated sp3 08:52 Data reviewed: vital signs, nurses notes, old medical records, lab test result(s), EKG, sp3 radiologic studies. ED course: 84-year-old female with palpitations now resolved and acute on chronic sciatica type pain. Patient now resting comfortably in no acute distress. I am at highly spacious of acute coronary syndrome, sepsis, shock or any other critical pathology. Will assess general labs, troponin EKG and chest x-ray from a cardiac standpoint. Ketorolac 15 mg IV from her sciatica standpoint if workup negative we will safely discharge patient home.. 09:12 ED course: Patient's heart rate currently at 128 in atrial fibrillation. Cardizem sp3 ordered.. 09:29 ED course: Patient with elevated troponin and BNP in the setting of normal creatinine. sp3 Will admit for A-fib RVR, NSTEMI cardiology consultation. Continue Cardizem for control and aspirin added as well. No ST elevation on EKG.. 13:25 ED course: arrived and was adamant about transferring patient to [facility]. I sp3 told him that it would be an elective transfer and that they may not accept. Upon going through the transfer center at [facility], patient was indeed excepted by patient's furniture technician and internal medicine on-call. Patient will be transferred there. I have notified our physician team here.. 06/24 08:33 Order name: Basic Metabolic Panel; Complete Time: 09:25 sp3 06/24 08:33 Order name: CBC with Diff; Complete Time: 09:25 sp3 06/24 08:33 Order name: LFT's; Complete Time: : sp3 06/24 08:33 Order name: Magnesium; Complete Time: 09:25 sp3 06/24 08:33 Order name: NT PRO-BNP; Complete Time: 09:25 sp3 06/24 08:33 Order name: PT-INR; Complete Time: 09:25 sp3 06/24 08:33 Order name: Troponin HS; Complete Time: 09:25 sp3 06/24 11:52 Order name: Basic Metabolic Panel EDMS 06/24 11:52 Order name: Basic Metabolic Panel EDMS 06/24 11:52 Order name: CBC with Automated Diff EDMS 06/24 11:52 Order name: CBC with Automated Diff EDMS 06/24 11:52 Order name: NT PRO-BNP EDMS 06/24 11:52 Order name: NT PRO-BNP EDMS 06/24 11:52 Order name: Troponin High Sensitivity; Complete Time: 12:50 EDMS 06/24 08:33 Order name: XRAY Chest (1 view); Complete Time: 09:46 sp3 06/24 08:33 Order name: Cardiac monitoring; Complete Time: 08:35 sp3 06/24 08:33 Order name: EKG - Nurse/Tech; Complete Time: 09:30 sp3 06/24 08:33 Order name: IV Saline Lock; Complete Time: 08:34 sp3 06/24 08:33 Order name: Labs collected and sent; Complete Time: 09:30 sp3 06/24 08:33 Order name: O2 Per Protocol; Complete Time: 08:34 sp3 06/24 08:33 Order name: O2 Sat Monitoring; Complete Time: 08:34 sp3 Administered Medications: 09:01 Drug: Ketorolac IVP 15 mg IVP once Route: IVP; Site: right forearm; hb 10:03 Follow up: Response: No adverse reaction bp 09:01 Drug: Ondansetron IVP 4 mg IVP once; over 2 minutes Route: IVP; Site: right forearm; hb 10:03 Follow up: Response: No adverse reaction bp 09:20 Drug: Diltiazem IVP 10 mg IVP once; Over 2 minutes Route: IVP; Site: right forearm; bp 10:03 Follow up: Response: No adverse reaction bp 10:02 Drug: morphine IVP or IV 4 mg IVP once over 4 mins Route: IVP; Infused Over: 4 mins; bp Site: right forearm; 14:04 Follow up: Response: No adverse reaction bp Disposition Summary: 06/24/24 13:25 Transfer Ordered Notes: Transfer Location: [facility] sp3 Reason: Higher level of care sp3 Condition: Stable(06/24/24 13:25) sp3 Problem: an acute exacerbation(06/24/24 13:25) sp3 Symptoms: have worsened(06/24/24 13:25) sp3 Accepting Physician: Dr. Ojeda internal medicine, and Dr. Ojeda cards(06/24/24 15:09) bp Diagnosis - NSTEMI, CHF exacerbation, atrial fibrillation with RVR sp3 Forms: - Medication Reconciliation Form sp3 - SBAR form sp3 Signatures: Dispatcher [employer] EDMS Tamela Huang RN RN August Huerta RN RN Chase Taylor MD MD sp3 Corrections: (The following items were deleted from the chart) 08:33 08:33 BASIC METABOLIC PANEL+C.LAB.BRZ ordered. EDMS EDMS 08:33 08:33 CBC+H.LAB.BRZ ordered. EDMS EDMS 08:33 08:33 HEPATIC FUNCTION+C.LAB.BRZ ordered. EDMS EDMS 08:33 08:33 MAGNESIUM+C.LAB.BRZ ordered. EDMS EDMS 08:33 08:33 PROBNP+C.LAB.BRZ ordered. EDMS EDMS 08:33 08:33 PROTIME (+INR)+COAG.LAB.BRZ ordered. EDMS EDMS 08:33 08:33 Troponin High Sensitivity+C.LAB.BRZ ordered. EDMS EDMS 08:34 08:33 Chest Single View+RAD.RAD.BRZ ordered. EDMS EDMS 11:19 09:35 Anna Gaines sp3 sp3 13:24 09:35 Inpatient Admission sp3 sp3 13:24 09:35 Telemetry/MedSurg (Inpatient) sp3 sp3 13:24 09:35 Stable sp3 sp3 13:24 09:35 an acute exacerbation sp3 sp3 13:24 09:35 have worsened sp3 sp3 13:24 09:35 Standard sp3 sp3 13:24 09:35 sp3 sp3 13:24 09:35 Atrial fibrillation with RVR, CHF, NSTEMI sp3 sp3 13:24 11:19 Woodard, Ilan sp3 sp3 15:09 13:25 Dr. Ojeda internal medicine, and [facility] sp3 bp
--- NOTE | 2024-06-24 09:42 | RAD REPORT ---
Procedure: Chest Single View HISTORY: Palpitations COMPARISON: April 2024 FINDINGS: The lungs appear clear of acute infiltrate. No significant pleural effusion noted. The heart is normal size.. Pacemaker leads in place IMPRESSION: No acute abnormality is displayed.
[2024-06-24] MEDS ORDERED: MORPHINE 4 MG/ML SYR ONE ×2 (10:00→15:11)
[2024-06-24] MEDS ORDERED: IPRATROPIUM BROM 0.5MG/2.5ML NEB PRN (11:47)
[2024-06-24] MEDS ORDERED: ALBUTEROL 2.5 MG/3 ML NEB SOL NEB PRN (11:47)
[2024-06-24 15:49] VITALS: TEMP 98
[2024-06-24 15:54] VITALS: BP 150/80; O2SAT 100
[2024-06-24] MEDS ORDERED: FUROSEMIDE 20 MG/ 2ML VIAL IV SCH (17:00)
[2024-06-24] MEDS ORDERED: APIXABAN 5 MG TABLET PO SCH (21:00)
--- NOTE | 2024-06-26 12:05 | EKG ---
Test Date: 2024-06-24 Test Time: 08:57:42 Densitometer Reader: HB MEASUREMENT RESULTS: Intervals: Rate: 128 DE: QRSD: 84 QT: 320 QTc: 467 [place]: P: DE: QRS: 53 T: 262 INTERPRETIVE STATEMENTS: Atrial fibrillation with PVCs Septal infarct, age undetermined Marked ST abnormality, possible inferior subendocardial injury Abnormal ECG Compared to ECG 04/22/2024 08:20:50 ST (T wave) deviation now present Sinus rhythm no longer present Myocardial infarct finding still present Electronically Signed On 06-26-24 12:01:12 CDT by Mando Ornelas
== END 2024-06-24 15:09 | disposition short-term general hospital (02) ==
LOC: ER 08:24 → UNDOADMIN 11:46 → ERHOLD 11:46 → UNDODISIN 15:09
DX: I21.4 Non-ST elevation (NSTEMI) myocardial infarction (principal); I50.9 Heart failure, unspecified; I48.91 Unspecified atrial fibrillation; Z79.01 Long term (current) use of anticoagulants; I10 Essential (primary) hypertension; Z95.0 Presence of cardiac pacemaker
CPT/HCPCS: 93005; 85025; 80048; 36415; 83735; 85610; 80076; 84484 ×2; 83880; 71045; 96375; 96374; 99285; J2405; G0378 ×2

== ENCOUNTER 2024-07-15 08:39 | Observation (INO) | payer OTHER ==
[2024-07-15] MEDS ORDERED: SOTALOL HCL 80 MG TAB ONE (09:10)
[2024-07-15] MEDS ORDERED: METOPROLOL XL 50 MG TAB PO ONE (09:11)
[2024-07-15 09:28] LABS: Absolute Basophils 0.1 K/uL (0-0.5); Absolute Eosinophils 0.1 K/uL (0-0.5); Absolute Lymphocytes (CBC) 0.9 K/uL (0.7-4.9); Absolute Monocytes 0.5 K/uL (0.1-1.3); Eosinophils % 0.7 % (0-4.4); Hematocrit 37.7 % (36.0-45.0); Hemoglobin 12.9 g/dL (12.0-15.0); Lymphocytes % 12.3 % (15.3-44.8); MCH 32.4 pg (27.0-35.0); MCHC 34.1 g/dL (32.0-36.0); MCV 94.8 fL (80-100); MPV 7.3 fL (7.6-11.3); Monocytes % 6.1 % (3.3-12.3); Neutrophils % 79.9 % (41.7-73.7); Nucleated Red Blood Cells % 0.1 % (0-0); Platelets 274 thou/uL (152-406); RBC Red Blood Cell Count 3.98 M/uL (3.86-4.86); Red Cell Distribution Width 14.3 % (12.1-15.2)
[2024-07-15] MEDS ORDERED: ONDANSETRON 4 MG/2 ML VIAL ONE (09:46)
[2024-07-15 09:54] LABS: Albumin 2.9 g/dL (3.4-5.0); Albumin/Globulin Ratio 0.9 (1.1-1.8); Anion Gap 8.9 mEq/L (5.0-15.0); Bilirubin Direct 0.4 mg/dL (0-0.2); Bilirubin Indirect, Calculated 0.4 mg/dL (0.2-0.8); Bilirubin Total 0.8 mg/dL (0.2-1.0); Globulin 3.4 g/dL (2.3-3.5); Magnesium 2.1 mg/dL (1.6-2.4); Potassium 3.9 mEq/L (3.5-5.1); Protein, Total 6.3 g/dL (6.4-8.2); Thyroid Stimulating Hormone 0.651 uIU/mL (0.358-3.740); Troponin High Sensitivity 11.8 pg/mL (<58.9)
--- NOTE | 2024-07-15 09:55 | RAD REPORT ---
Procedure: Chest Single View HISTORY: Atrial fibrillation COMPARISON: June 2024 FINDINGS: The lungs appear clear of acute infiltrate. No significant pleural effusion noted. The heart is mildly enlarged. Pacemaker leads in place. IMPRESSION: No acute abnormality is displayed.
[2024-07-15] MEDS ORDERED: PROMETHAZINE INJ 25 MG/ML AMP ONE (10:34)
[2024-07-15] MEDS ORDERED: METOPROLOL TARTRATE 5 MG/5 ML INJ IV ONE ×2 (10:34→12:18)
[2024-07-15 10:45] LABS: Specific Gravity 1.025 (1.005-1.030); Sqamous Epithelial <5 /HPF (None Seen); Urine Bacteria None Seen /HPF (<20); Urine Bilirubin NEGATIVE (Negative); Urine Blood Negative (Negative); Urine Clarity Turbid (Clear); Urine Color Yellow (Yellow); Urine Culture Reflex Order REFLEXED; Urine Glucose NEGATIVE (Negative); Urine Ketones NEGATIVE (Negative); Urine Micro Reflex YN NO BILL MICROSCOPIC; Urine Mucus Slight /HPF (None Seen); Urine Nitrite NEGATIVE (Negative); Urine Protein NEGATIVE (Negative); Urine Urobilinogen Normal (Normal); Urine WBC 20-50 /HPF (<5); Urine Yeast (Budding) Trace /HPF (None Seen)
[2024-07-15] MEDS ORDERED: CEFTRIAXONE 2000 MG/VIAL ONE (12:17)
[2024-07-15] MEDS ORDERED: NA CHLORIDE 0.9% 100 ML ONE (12:17)
[2024-07-15] MEDS ORDERED: NA CHLORIDE 0.9% 1,000 ML ONE (12:54)
--- NOTE | 2024-07-15 13:05 | EDPHYS ---
Physician Documentation [facility] Name: Radhika Paz Age: 84 yrs Sex: Female : 1940 Arrival Date: 07/15/2024 Time: 08:39 Bed 7 Private MD: ED Physician Jerry Carcamo HPI: 07/15 10:28 This 84 yrs old Female presents to ER via EMS with complaints of Nausea. rt 10:28 Patient presents to the ED with nausea without vomiting starting last night. Patient rt denies any abdominal pain. Denies other acute complaints at this time. Received Zofran with marked symptoms. She was noted be in A-fib with rapid ventricular rate, stated that she missed a dose of her metoprolol as well as 2 doses of her sotalol.. Historical: - Allergies: 09:04 No Known Allergies; jl7 - Home Meds: 09:34 metoprolol succinate 25 mg oral Tablet, Extended Release 24 hr 2 times per day jl7 [Active]; Betapace 80 mg oral tablet [Active]; - PMHx: 09:04 Atrial fibrillation; chronic back pain; Hypertension; Pacemaker; jl7 - PSHx: 09:04 Tonsillectomy; back; jl7 - Immunization history:: Adult Immunizations unknown. - Infectious Disease History:: Denies. - Social history:: Smoking status: Patient denies any tobacco usage or history of. - Family history:: not pertinent. ROS: 10:28 Constitutional: Negative for fever, chills, and weight loss, Cardiovascular: Negative rt for chest pain, palpitations, and edema, Respiratory: Negative for shortness of breath, cough, wheezing, and pleuritic chest pain, MS/Extremity: Negative for injury and deformity, Skin: Negative for injury, rash, and discoloration, Neuro: Negative for headache, weakness, numbness, tingling, and seizure, 10:28 Abdomen/GI: Positive for nausea, Negative for abdominal pain, Exam: 10:28 Constitutional: This is a well developed, well nourished patient who is awake, alert, rt and in no acute distress. Head/Face: Normocephalic, atraumatic. Chest/axilla: Normal chest wall appearance and motion. Nontender with no deformity. No lesions are appreciated. Cardiovascular: Regular rate and rhythm with a normal S1 and S2. No gallops, murmurs, or rubs. Normal PMI, no JVD. No pulse deficits. Respiratory: Lungs have equal breath sounds bilaterally, clear to auscultation and percussion. No rales, rhonchi or wheezes noted. No increased work of breathing, no retractions or nasal flaring. Abdomen/GI: Soft, non-tender, with normal bowel sounds. No distension or tympany. No guarding or rebound. No evidence of tenderness throughout. Skin: Warm, dry with normal turgor. Normal color with no rashes, no lesions, and no evidence of cellulitis. MS/ Extremity: Pulses equal, no cyanosis. Neurovascular intact. Full, normal range of motion. Neuro: Awake and alert, GCS 15, oriented to person, place, time, and situation. Cranial nerves II-XII grossly intact. Motor strength 5/5 in all extremities. Sensory grossly intact. Cerebellar exam normal. Normal gait. 10:28 ECG was reviewed by the Attending Physician. Vital Signs: 08:50 BP 134 / 79; Pulse 112; Resp 15; Temp 97; Pulse Ox 100% ; Pain 0/10; jl7 10:15 BP 127 / 68; Pulse 105; Resp 16; Pulse Ox 98% ; jl7 10:44 BP 129 / 79; Pulse 96; Resp 15; Pulse Ox 100% ; jl7 11:40 BP 127 / 59; Pulse 97; Resp 15; Pulse Ox 100% ; jl7 12:31 BP 131 / 71; Pulse 101; Resp 19; Pulse Ox 99% ; jl7 14:23 BP 127 / 68; Pulse 92; Resp 15; Pulse Ox 99% ; jl7 15:34 BP 132 / 56; Pulse 84; Resp 15; Pulse Ox 97% ; jl7 08:50 Pain Scale: Adult jl7 MDM: 08:59 Medical Screening Exam initiated rt 19:53 Differential diagnosis: A-fib, nausea, vomiting. Data reviewed: vital signs, nurses rt notes. Consideration of Admission/Observation Patient was admitted/placed on observation. Management of patient was discussed with the following: Primary Care Provider: Patient to be admitted by her PCP. I considered the following discharge prescriptions or medication management in the emergency department Medications were administered in the Emergency Department. See MAR. Independent interpretation of the following test(s) in the Emergency Department X-Ray: My interpretation is No infiltrate seen on interpretation of x-ray images. Care significantly affected by the following chronic conditions: Atrial fibrillation. Counseling: I had a detailed discussion with the patient and/or guardian regarding the historical points, exam findings, and any diagnostic results supporting the discharge/admit diagnosis, lab results, radiology results, the need for further work-up and treatment in the hospital. Response to treatment: the patient's symptoms have markedly improved after treatment. 07/15 09:07 Order name: Basic Metabolic Panel; Complete Time: 09:54 rt 07/15 09:07 Order name: CBC with Diff; Complete Time: 09:54 rt 07/15 09:07 Order name: LFT's; Complete Time: 09:54 rt 07/15 09:07 Order name: Magnesium; Complete Time: 09:54 rt 07/15 09:07 Order name: Troponin HS; Complete Time: 09:54 rt 07/15 09:07 Order name: TSH; Complete Time: 09:54 rt 07/15 09:07 Order name: Lipase; Complete Time: 09:54 rt 07/15 10:23 Order name: UAM; Complete Time: 11:32 rt 07/15 10:49 Order name: Urine Culture EDMS 07/15 09:07 Order name: XRAY Chest (1 view); Complete Time: 09:56 rt 07/15 13:11 Order name: CONS Physician Consult EDMS 07/15 09:07 Order name: Cardiac monitoring; Complete Time: 09:32 rt 07/15 09:07 Order name: EKG - Nurse/Tech; Complete Time: 09:32 rt 07/15 09:07 Order name: IV Saline Lock; Complete Time: 09:32 rt 07/15 09:07 Order name: Labs collected and sent; Complete Time: 09:32 rt 07/15 09:07 Order name: O2 Per Protocol; Complete Time: 09:32 rt 07/15 09:07 Order name: O2 Sat Monitoring; Complete Time: 09:32 rt EC:28 Rate is 112 beats/min. Rhythm is regular, A fib with No ectopy, Rate related ST and T rt wave changes. QRS [place] is Normal. [place] interval is normal. QRS interval is normal. QT interval is normal. No Q waves. Administered Medications: 09:20 Drug: Sotalol PO 80 mg PO once Route: PO; jl7 09:20 Drug: Metoprolol PO 25 mg PO once; succinate Route: PO; jl7 10:42 Follow up: Response: No adverse reaction aa5 09:36 CANCELLED (Physician Discretion): [id number] mg PO once; metoprolol succinate aa5 09:53 Drug: Ondansetron IVP 4 mg IVP once; over 2 minutes Route: IVP; Site: left antecubital; jl7 10:30 Follow up: Response: No adverse reaction aa5 10:39 Drug: Promethazine IVP 12.5 mg IVP once Route: IVP; Site: left antecubital; aa5 11:00 Follow up: Response: No adverse reaction; Nausea is decreased jl7 10:39 Drug: Metoprolol IVP 5 mg IVP once; Hold for SBP <100 or HR <60. Route: IVP; Site: left [facility] antecubital; 12:20 Follow up: Response: No adverse reaction; Cardiac rhythm is unchanged jl7 12:10 Drug: Metoprolol IVP 5 mg IVP once; Hold for SBP <100 or HR <60. Route: IVP; Site: left [facility] antecubital; 15:36 Follow up: Response: No adverse reaction jl7 12:11 Drug: Rocephin - Rocephin (cefTRIAXone) IVPB 2 grams IVPB once over 30 mins; (mix in aa5 100 mL NS) Route: IVPB; Infused Over: 30 mins; Site: left antecubital; 12:41 Follow up: Response: No adverse reaction; IV Status: Completed infusion aa5 13:04 Drug: NS 0.9% IV 1000 ml IV at 1000 ml once; to be given as a bolus over 60 minutes aa5 Route: IV; Rate: 1000 ml; Site: left antecubital; 14:07 Follow up: IV Status: Completed infusion; IV Intake: 1000ml aa5 Disposition Summary: 07/15/24 13:05 Hospitalization Ordered Notes: Hospitalization Status: Observation rt Provider: Ilan Woodard rt Location: Telemetry/[facility] [place] (observation) rt Condition: Stable rt Problem: new rt Symptoms: have improved rt Bed/Room Type: Standard rt Room Assignment: 205(07/15/24 14:04) eb Diagnosis - Nausea rt - UTI/ Urinary tract infection, site not specified rt - Atrial fibrillation with rapid ventricular rate rt Forms: - Medication Reconciliation Form rt - SBAR form rt - Leadership Thank You Letter rt Critical care time excluding procedures: 19:53 Critical care time: Bedside Care: 30 minutes, Consultation: 5 minutes. Total time: 35 rt minutes Signatures: Dispatcher [employer] EDNely Multani, RN RN aa5 Michael Powell RN RN jl7 Sharon Camacho Ryan, MD MD rt Corrections: (The following items were deleted from the chart) 09:08 09:08 BASIC METABOLIC PANEL+C.LAB.BRZ ordered. EDMS EDMS 09:08 09:08 CBC+H.LAB.BRZ ordered. EDMS EDMS 09:08 09:08 HEPATIC FUNCTION+C.LAB.BRZ ordered. EDMS EDMS 09:08 09:08 MAGNESIUM+C.LAB.BRZ ordered. EDMS EDMS 09:08 09:08 Troponin High Sensitivity+C.LAB.BRZ ordered. EDMS EDMS 09:08 09:08 THYROID STIMULAT HORMONE+C.LAB.BRZ ordered. EDMS EDMS 09:08 09:08 LIPASE+C.LAB.BRZ ordered. EDMS EDMS 09:08 09:08 Chest Single View+RAD.RAD.BRZ ordered. EDMS EDMS 09:36 09:07 Metoprolol PO 50 mg PO once; metoprolol succinate ordered. rt aa5 09:36 09:33 Metoprolol PO 50 mg PO once; metoprolol succinate ordered. jl7 aa5 14:04 13:05 rt eb
--- NOTE | 2024-07-15 13:05 | ER ---
Nurse's Notes [facility] Name: Radhika Paz Age: 84 yrs Sex: Female : 1940 Arrival Date: 07/15/2024 Time: 08:39 Bed 7 Private MD: Diagnosis: Nausea;UTI/ Urinary tract infection, site not specified;Atrial fibrillation with rapid ventricular rate Presentation: 07/15 08:50 Chief complaint: EMS states: Toned out for nausea since last night, no vomiting. 4mg jl7 Zofran and 200 mL NS given in route, pt denies nausea at this time. 08:50 Coronavirus screen: At this time, the client does not indicate any symptoms associated jl7 with coronavirus-19. Ebola Screen: No symptoms or risks identified at this time. Initial Sepsis Screen: Does the patient meet any 2 criteria? No. Patient's initial sepsis screen is negative. Does the patient have a suspected source of infection? No. Patient's initial sepsis screen is negative. Risk Assessment: Do you want to hurt yourself or someone else? Patient reports no desire to harm self or others. Onset of symptoms was July 14, 2024. Care prior to arrival: Medication(s) given: Normal saline infusion, 200 mL zofran 4 mg, IV initiated. 20 GA, in the left antecubital area, Glucose check: 125. 08:50 Method Of Arrival: EMS: [facility] 08:50 Acuity: AMADOU 2 jl7 Triage Assessment: 08:50 General: Appears in no apparent distress. uncomfortable, Behavior is calm, cooperative, jl7 appropriate for age. Pain: Denies pain. Neuro: Level of Consciousness is awake, alert, obeys commands, Oriented to person, place, time, situation. Cardiovascular: Patient's skin is warm and dry. Rhythm is atrial fibrillation with rapid ventricular response. Respiratory: Airway is patent Respiratory effort is even, unlabored, Respiratory pattern is regular, symmetrical. GI: Reports nausea. Derm: Skin is pink, warm \\T\\ dry. Historical: - Allergies: 09:04 No Known Allergies; jl7 - Home Meds: 09:34 metoprolol succinate 25 mg oral Tablet, Extended Release 24 hr 2 times per day jl7 [Active]; Betapace 80 mg oral tablet [Active]; - PMHx: 09:04 Atrial fibrillation; chronic back pain; Hypertension; Pacemaker; jl7 - PSHx: 09:04 Tonsillectomy; back; jl7 - Immunization history:: Adult Immunizations unknown. - Infectious Disease History:: Denies. - Social history:: Smoking status: Patient denies any tobacco usage or history of. - Family history:: not pertinent. Screenin:34 [facility] ED Fall Risk Assessment (Adult) History of falling in the last 3 months, jl7 including since admission No falls in past 3 months (0 pts) Confusion or Disorientation No (0 pts) Intoxicated or Sedated No (0 pts) Impaired Gait No (0 pts) Mobility Assist Device Used No (0 pt) Altered Elimination No (0 pt) Score/Fall Risk Level 0 - 2 = Low Risk Oriented to surroundings, Maintained a safe environment. Abuse screen: Denies threats or abuse. Denies injuries from another. Nutritional screening: No deficits noted. Tuberculosis screening: No symptoms or risk factors identified. Assessment: 10:15 Reassessment: Patient appears in no apparent distress at this time. Patient and/or jl7 family updated on plan of care and expected duration. Pain level reassessed. Patient is alert, oriented x 3, equal unlabored respirations, skin warm/dry/pink. GI: Abdomen is non-distended, Reports nausea. 10:30 Reassessment: Patient is alert, oriented x 3, equal unlabored respirations, skin aa5 warm/dry/pink. Pt reports nausea has improved but states "it's (nausea) not completely gone", MD was notified. . 11:40 Reassessment: Patient appears in no apparent distress at this time. Patient and/or jl7 family updated on plan of care and expected duration. Pain level reassessed. Patient is alert, oriented x 3, equal unlabored respirations, skin warm/dry/pink. Pt reports shortness of breath, lung sounds clear, 100% SpO2 on room air, ERD notified. 12:30 Reassessment: Dr. Carcamo at bedside discussing results and POC with pt and family. jl7 14:06 Reassessment: Pt assisted to restroom via wheelchair, now back in bed, call martínez aa5 remains within reach. . 14:06 Reassessment: Patient is alert, oriented x 3, equal unlabored respirations, skin aa5 warm/dry/pink. 15:34 Reassessment: Pt transported to room 205 via wheelchair, David notified. jl7 Vital Signs: 08:50 BP 134 / 79; Pulse 112; Resp 15; Temp 97; Pulse Ox 100% ; Pain 0/10; jl7 10:15 BP 127 / 68; Pulse 105; Resp 16; Pulse Ox 98% ; jl7 10:44 BP 129 / 79; Pulse 96; Resp 15; Pulse Ox 100% ; jl7 11:40 BP 127 / 59; Pulse 97; Resp 15; Pulse Ox 100% ; jl7 12:31 BP 131 / 71; Pulse 101; Resp 19; Pulse Ox 99% ; jl7 14:23 BP 127 / 68; Pulse 92; Resp 15; Pulse Ox 99% ; jl7 15:34 BP 132 / 56; Pulse 84; Resp 15; Pulse Ox 97% ; jl7 08:50 Pain Scale: Adult jl7 ED Course: 08:50 Arm band placed on right wrist. jl7 08:50 Initial lab(s) drawn, by me, sent to lab. EKG done, by ED staff, reviewed by Jerry Carcamo MD. Maintain EMS IV. Dressing intact. Good blood return noted. Site clean \\T\\ dry. Gauge \\T\\ site: 20 g left ac. Flushed with 10 mL NS. 08:51 Patient arrived in ED. aa5 08:53 Jerry Carcamo MD is Attending Physician. rt 09:01 Michael Powell, ARON is Primary Nurse. jl7 09:04 Triage completed. jl7 09:34 Patient has correct armband on for positive identification. Provided Education on: use jl7 of call martínez. Client placed on continuous cardiac and pulse oximetry monitoring. NIBP monitoring applied. front desk monitor on. 09:42 XRAY Chest (1 view) In Process Unspecified. EDMS 13:03 Ilan Woodard MD is Hospitalizing Provider. rt 15:34 No provider procedures requiring assistance completed. Patient admitted, IV remains in jl7 place. intact, No redness/swelling at site. Administered Medications: 09:20 Drug: Sotalol PO 80 mg PO once Route: PO; jl7 09:20 Drug: Metoprolol PO 25 mg PO once; succinate Route: PO; jl7 10:42 Follow up: Response: No adverse reaction aa5 09:36 CANCELLED (Physician Discretion): [id number] mg PO once; metoprolol succinate aa5 09:53 Drug: Ondansetron IVP 4 mg IVP once; over 2 minutes Route: IVP; Site: left antecubital; jl7 10:30 Follow up: Response: No adverse reaction aa5 10:39 Drug: Promethazine IVP 12.5 mg IVP once Route: IVP; Site: left antecubital; aa5 11:00 Follow up: Response: No adverse reaction; Nausea is decreased jl7 10:39 Drug: Metoprolol IVP 5 mg IVP once; Hold for SBP <100 or HR <60. Route: IVP; Site: left aa5 antecubital; 12:20 Follow up: Response: No adverse reaction; Cardiac rhythm is unchanged jl7 12:10 Drug: Metoprolol IVP 5 mg IVP once; Hold for SBP <100 or HR <60. Route: IVP; Site: left aa5 antecubital; 15:36 Follow up: Response: No adverse reaction jl7 12:11 Drug: Rocephin - Rocephin (cefTRIAXone) IVPB 2 grams IVPB once over 30 mins; (mix in aa5 100 mL NS) Route: IVPB; Infused Over: 30 mins; Site: left antecubital; 12:41 Follow up: Response: No adverse reaction; IV Status: Completed infusion aa5 13:04 Drug: NS 0.9% IV 1000 ml IV at 1000 ml once; to be given as a bolus over 60 minutes aa5 Route: IV; Rate: 1000 ml; Site: left antecubital; 14:07 Follow up: IV Status: Completed infusion; IV Intake: 1000ml aa5 Medication: 09:34 VIS not applicable for this client. jl7 Intake: 14:07 IV: 1000ml; Total: 1000ml. aa5 Outcome: 13:05 Decision to Hospitalize by Provider. rt 15:34 Admitted to Tele accompanied by tech, via wheelchair, room 205, with chart, jl7 15:34 Condition: stable 15:34 Discharge instructions given to patient, family, Instructed on the need for admit, Demonstrated understanding of instructions, 15:37 Patient left the ED. jl7 Signatures: Dispatcher [employer] EDMS Nely Dai, RN RN aa5 Michael Powell RN RN jl7 Jerry Carcamo MD MD rt Corrections: (The following items were deleted from the chart) 09: 08:50 Acuity: AMADOU 3 jl7 jl7 14 14:07 IV Status: Completed infusion aa5 aa5
[2024-07-15 15:58] VITALS: BMI 22.8
[2024-07-15] MEDS: ONDANSETRON 4 MG/2 ML VIAL IV PRN (19:59)
[2024-07-15] MEDS: METOPROLOL TAR 50 MG TAB PO SCH (21:00)
[2024-07-15] MEDS: SOTALOL HCL 80 MG TAB PO SCH (21:46)
[2024-07-15] MEDS: ATORVASTATIN 10 MG TAB PO SCH (21:46)
[2024-07-15] MEDS: APIXABAN 5 MG TABLET PO SCH (21:46)
[2024-07-15] MEDS: GABAPENTIN 300 MG CAP PO SCH (21:46)
[2024-07-15] MEDS: DIPHENHYDRAMINE 25 MG TAB/CAP PO ONE (22:10)
[2024-07-15] MEDS: ACETAMINOPHEN 500 MG TAB PO ONE (22:10)
[2024-07-15 23:08] VITALS: O2SAT 96
[2024-07-16] MEDS: LEVOTHYROXINE SOD 0.075 MG TAB PO SCH (06:22)
[2024-07-16 06:47] LABS: Anion Gap 6.7 mEq/L (5.0-15.0); Potassium 3.7 mEq/L (3.5-5.1)
[2024-07-16 11:55] VITALS: BP 112/56; TEMP 97.7
--- NOTE | 2024-07-16 12:49 | P.CNS ---
Date of Consult: 07/16/24 Chief Complaint: abdominal pain, nausea and decrease PO intake with history of AF History of Present Illness: Patient with PMH of atrial fibrillation, pacemaker placement, presented with nausea, abdominal pain, she also report feeling palpitations, denies chest pain, no breathing problems, no syncope. Allergies No Known Drug Allergies Allergy (Verified 09/19/22 05:00) Unknown Home medications list reviewed: Yes Home Medications: Gabapentin 300 mg PO BEDTIME 01/19/14 Amlodipine [Norvasc] 5 mg PO BID 09/18/22 Apixaban [Eliquis] 5 mg PO BID 12/07/23 Atorvastatin Calcium 10 mg PO DAILY AT SUPPER 12/07/23 Levocetirizine Dihydrochloride [Allergy Relief] 5 mg PO BEDTIME 12/07/23 Levothyroxine [Synthroid*] 0.075 mg PO [id number] 12/07/23 Losartan Potassium 25 mg PO DAILY 12/07/23 Metoprolol Succinate [Toprol Xl*] 25 mg PO BEDTIME 12/07/23 Metoprolol Tartrate 25 mg PO DAILY 12/07/23 Sotalol HCl [Betapace AF] 80 mg PO BID 12/07/23 Aspirin [Aspirin EC] 81 mg PO DAILY 07/15/24 Sacubitril/Valsartan [Entresto 24 mg-26 mg Tablet] 24 - 26 mg PO BID 07/15/24 - Past Medical/Surgical History Diabetic: No -: HTN -: PACEMAKER -: Afib -: Hypothyroidism -: hysterectomy -: back SX -: tonsilectomy - Family History Mother Medical History: Hypertension, Cancer, Other (see notes) Notes: alzheimers - Social History Smoking Status: Former smoker Alcohol use: Yes CD- Drugs: No Caffeine use: Yes Place of Residence: Home Review of Systems 10-point ROS is otherwise unremarkable Physical Examination Temp Pulse Resp BP Pulse Ox 97.7 F 89 14 112/56 L 95 07/16/24 11:53 07/16/24 11:53 07/16/24 11:53 07/16/24 11:53 07/16/24 11:53 General: Alert, In no apparent distress HEENT: Atraumatic, PERRLA, Mucous membr. moist/pink, EOMI, Sclerae nonicteric Neck: Supple, 2+ carotid pulse no bruit, No LAD, Without JVD or thyroid abnormality Respiratory: Clear to auscultation bilaterally, Normal air movement Cardiovascular: Regular rate/rhythm, Normal S1 S2 Gastrointestinal: Normal bowel sounds, No tenderness Musculoskeletal: No tenderness Integumentary: No rashes Neurological: Normal gait, Normal speech, Normal tone, Normal affect Lymphatics: No axilla or inguinal lymphadenopathy - Problems (1) Atrial fibrillation with rapid ventricular response Onset Date: 07/02/14 Current Visit: No Status: Acute Plan: continue Sotalol 80 mg po BID Agree with switching toprol XL to metoprolol tartarate 25 mg po BID Continue Eliquis 5 mg po BID outpatient follow up with cardiology for pacemaker check and medications adj ustment.
--- NOTE | 2024-07-16 15:21 | RAD REPORT ---
EXAMINATION: US Abdomen Exam Complete CLINICAL INDICATION: Female, 84 years, [facility] N nausea, abdominal pain TECHNIQUE: Grayscale ultrasonography of the abdomen was performed. [id number]. COMPARISON: No prior exam. FINDINGS: LIVER: Normal size and echogenicity. No masses seen. GALLBLADDER: No gallstones, gall bladder wall thickening or pericholecystic fluid. No reported sono graphic Valencia's sign. BILE DUCTS: Intrahepatic and extrahepatic bile ducts appear normal. Measured near the kenney hepatis , the common bile duct is 0.1 cm RIGHT KIDNEY: Right renal length measurement: 9.8 cm. Normal in echogenicity and size. No calculus, s olid mass or hydronephrosis. LEFT KIDNEY: Left renal length measurement: 10.9 cm. Normal in echogenicity and size. No calculus, s olid mass or hydronephrosis. SPLEEN: Normal in echogenicity, with length of 8.8 cm PANCREAS: The visualized pancreas is normal in size and echogenicity. AORTA AND INFERIOR VENA CAVA: Visualized segments of the aorta and inferior vena cava are normal. ASCITES: None. ADDITIONAL FINDINGS: None. IMPRESSION: No acute or significant abnormalities.
--- NOTE | 2024-07-16 21:21 | SS ---
Date of Discharge: 07/16/2024 Chief Complaint: Nausea. History Of Present Illness: This is an 84-year-old pleasant female patient who has history of atrial fibrillation on chronic anticoagulation therapy. Sees her conference manager, Dr. Gaines in [place], and [place] him recently and actually has appointment coming up next week. The patient was doing fine in her n ormal usual state of health until yesterday. She had nausea, but no abdominal pain, no vomiting, no fever, no constipation or diarrhea. With that, she presented to emergency room. Her abdominal exam was unremarkable, but she was noted to have atrial fibrillation with rapid ventricular rate with hear t rate around 110 range or so. The patient had not taken her morning dose of sotalol and metoprolol, which was given in the emergency room and 1 dose of 5 mg IV metoprolol was also given in the ER. Wi th that, her heart rate came down to 90 to 100 range. I was contacted requesting admission to the [facility]. The patient was admitted to the hospital for observation. Overnight, her condition has earl ined stable. I have decided to increase the dose of metoprolol from 25 mg, not sure whether she was taking once a day or twice a day at home, which was prescribed by the conference manager. I have increased the dose to 50 mg twice a day and this was started as of yesterday evening. This morning when I saw her, the patient was lying in bed. Denies any complaints. No abdominal pain. No more nausea, vomi ting. She tolerated breakfast very well and was feeling just fine. Allergies: NO KNOWN ALLERGIES. Medications: Hydrocodone as needed as prescribed by Pain Management, amlodipine 5 mg daily, Eliquis 5 mg 2 times a day, atorvastatin 10 mg daily in the evening, Farxiga 10 mg daily, folic acid 1 tablet 400 mcg daily, gabapentin 300 mg takes 2 capsules 2 times a day, levocetirizine 5 mg daily at bedtim e, levothyroxine 75 mcg daily, losartan 25 mg daily, metoprolol succinate 25 mg daily, Entresto 24/26 mg twice a day, sotalol 80 mg 2 times a day. Review of Systems: GI: As mentioned above. All other systems reviewed and negative. Past Medical History: Significant for allergic rhinitis, hypothyroidism, impaired fasting glucose, h ypertension, mixed hyperlipidemia, chronic diastolic heart failure, atrial fibrillation, diverticulos is, chronic kidney disease, overactive bladder, osteoarthritis at multiple sites, depression, insomni a. Past Surgical History: Tonsillectomy, pacemaker placement, hysterectomy, back surgery. Family History: Parents , details unknown. Sister with hypertension and atrial fibrillation. Social History: Negative for smoking. Use of alcohol occasional. Physical Examination: Vital Signs: Temperature 98.2, pulse 99, respiratory rate 16, blood pressure 132/62, oxygen saturati on 96%, height 5 feet 8 inches, weight 150 pounds. General: Awake, alert, oriented, not in distress. HEENT: Head atraumatic, normocephalic. Conjunctivae nonerythematous. Sclerae white. Mouth, no thr ush or edema noted. Ears/Nose, no mass, lesion, discharge noted. Neck: Supple. No JVD, lymph nodes, bruit, thyromegaly noted. Lungs: Bilateral good equal air entry. Clear to auscultation. No rhonchi. No rales. Heart: Normal heart sounds, no murmur or gallop. Abdomen: Soft, bowel sounds normal. No guarding, rigidity, tenderness, mass, hepatosplenomegaly, dis tention, or bruit noted. Extremities: No leg edema. No calf tenderness. Skin: No rash, ulcer, cellulitis. Lymphatics: No lymph node enlargement in neck, supraclavicular, infraclavicular region. Neuro: No focal neurological deficit. Chest: Unremarkable. External Genitalia: Deferred. Rectal: Deferred. Laboratory Data: WBC 7.5, hemoglobin 12.9, platelets 274. Sodium yesterday 141, potassium 3.9, chlo ride 110, bicarb 26, BUN 18, creatinine 0.64, glucose 118. Liver function tests unremarkable. TSH 0 .651, lipase 25. This morning, sodium 143, potassium 3.7, chloride 113, bicarb 27, BUN 11, creatinin e 0.63, glucose 87. Chest x-ray, no acute cardiopulmonary changes. Hospital Course: After patient was evaluated in the emergency room yesterday, she was admitted to [facility]. Overnight, her condition has remained stable. I have increased dose of metoprolol to co ntrol her atrial fibrillation with rapid ventricular rate problem and she has responded well to it. This morning when I saw her, I have ordered abdominal ultrasound and after we get that particular rebeca t done, we will discharge her to go home. There is no acute abdominal finding. I will follow up on ultrasound with her on outpatient basis. I have gone over discharge instructions with her personally when I saw her and she has appointment to see her conference manager on Wednesday and I have asked her to come see me on of this coming week. Discharge Diagnoses: 1. Nausea, resolved. 2. Atrial fibrillation, chronic, with rapid ventricular rate. 3. Chronic diastolic heart failure. 4. Hypertension. 5. Hypothyroidism. 6. Impaired fasting glucose. 7. Mixed hyperlipidemia. 8. Allergic rhinitis. 9. Diverticulosis. 10. Osteoarthritis, multiple sites. 11. Status post pacemaker. 12. Chronic anticoagulation therapy. 13. Insomnia. Discharge Medications And Instructions: 1. Continue all prior home medications except following changes: a. Stop amlodipine. b. Stop losartan. c. Stop metoprolol 25 mg. d. Start metoprolol 50 mg, take 1 tablet by mouth 2 times a day. 2. Follow up at my office on , which is 07/20/2024. Total times plan 80 minutes including communication with the emergency room physician, review of last office visit records from 07/13/2024, review of emergency room visit record, and performing today's evaluation and management. WARD/HARJEET Voice ID: [id number] Report ID: [id number]
--- NOTE | 2024-07-17 10:53 | EKG ---
Test Date: 2024-07-15 Test Time: 08:56:47 [place]: LUCIA MEASUREMENT RESULTS: Intervals: Rate: 112 NH: QRSD: 80 QT: 332 QTc: 453 [place]: P: NH: QRS: 53 T: 264 INTERPRETIVE STATEMENTS: Atrial fibrillation with rapid ventricular response with premature ventricular or aberrantly conducted complexes Septal infarct, age undetermined Marked ST abnormality, possible inferior subendocardial injury Abnormal ECG Compared to ECG 06/24/2024 08:57:42 No significant changes Electronically Signed On 07-17-24 10:49:01 CDT by Mando Ornelas
== END 2024-07-16 15:50 | disposition home or self-care (01) ==
LOC: ER 08:39 → ERHOLD 13:08 → 2ND 15:05
PROVIDERS: ADMIT Internal Medicine; ATTEND Internal Medicine
DX: I48.11 Longstanding persistent atrial fibrillation (principal); I50.32 Chronic diastolic (congestive) heart failure; N39.0 Urinary tract infection, site not specified; R11.0 Nausea; I10 Essential (primary) hypertension; E03.9 Hypothyroidism, unspecified; E78.2 Mixed hyperlipidemia; R73.01 Impaired fasting glucose; J30.9 Allergic rhinitis, unspecified; M19.90 Unspecified osteoarthritis, unspecified site; R10.9 Unspecified abdominal pain; R00.2 Palpitations; Z79.01 Long term (current) use of anticoagulants; Z95.0 Presence of cardiac pacemaker; Z90.710 Acquired absence of both cervix and uterus
CPT/HCPCS: 96365; 96361; 93005; 87088; 85025; 81001; 87086; 80048 ×2; 36415; 83735; 80076; 84443; 87077; 87186; 84484; 83690; 71045; 76700; 96375; 99285; J2550; J2405 ×2; J0696; J7030; G0378 ×4